=== PATIENT | female | born 1955 | race Caucasian/White ===

== ENCOUNTER 2017-02-14 19:55 | Emergency (ER) | payer SELFPAY ==
[2017-02-14 20:03] VITALS: BP 175/90; PULSE 102; TEMP 98.7; BMI 29.6
--- NOTE | 2017-02-14 20:51 | PDOC ---
History of Present Illness - General Chief Complaint: Injury Stated Complaint: LEFT FOOT INJURY Time Seen by Provider: 02/14/17 20:20 History Source: Patient Exam Limitations: No Limitations - History of Present Illness Initial Comments: 02/14/17 21:35 MY CHIEF COMPLAINT: LEFT ANKLE PAIN HISTORY OF PRESENT ILLNESS: PT. IS A 61 Y/O FEMALE IDDM HERE TODAY C/O PAIN TO MEDIAL MALLEOUS FROM 02/03/17 WHEN SHE TWISTED HER ANKLE WALKING HER DOG. PT. REPORTS ICING HER ANKLE/FOOT AND TAKING ADVIL FOR PAIN. PT. DENIES ANY LEFT FOOT OR TOE PAIN. PT. HAS SWELLING TO LEFT MEDIAL ANKLE AND DORSAL FOOT. PT DENIES ANY NUMBNESS OF FOOT OR ANKLE. Occurred: reports: other (02/03/17) Severity: Yes: moderate Lower Extremity Pain Location: left: foot, ankle (MEDIALLY ) Method of Injury: Yes: twisted Modifying Factors: improves with: None (ADVIL), immobilization Lower Ext. Injury Location - Specific Injury Location Ankle: left pain, left swelling (DORSAL ) Foot: left foot ecchymosis (2ND, 3RD TOE), left foot swelling (DORSALLY), bilateral foot pain Extremity Pain Location - Extremity Pain Location Extremity Pain Locations: left: ankle (MEDIALLY ) Past History - Past Medical History Allergies/Adverse Reactions: Allergies Allergy/AdvReac Type Severity Reaction Status Date / Time No Known Allergies Allergy Verified 02/14/17 19:59 Home Medications: Ambulatory Orders Acetaminophen [Tylenol] 325 mg PO DAILY PRN 05/16/16 Aspirin [ASA -] 81 mg PO DAILY 05/16/16 Ca/D3/Mag#11/Zinc/Oracle Erp Architect/Navid/Bor [Caltrate 600+D Plus Tablet] 1 each PO DAILY Cephalexin [Keflex] 500 mg PO BID #14 capsule 05/16/16 Codeine/Butalbital/ASA/Caffein [[id number]-[id number]-Ctrr-Cod #3 Capsule] 1 each PO DAILY 05/16/16 Ezetimibe [Zetia] 10 mg PO DAILY 05/16/16 Famotidine [Pepcid] 20 mg PO DAILY PRN 05/16/16 Fexofenadine HCl [Mya Allergy] 180 mg PO DAILY PRN 05/16/16 Insulin Aspart [Novolog] 100 unit SQ ACHS 05/16/16 Multivitamin [Poly-Vitamin] 1 each PO DAILY 05/16/16 Nebivolol [Bystolic -] 5 mg PO DAILY 05/16/16 Pramipexole Di-HCl [Pramipexole Dihydrochloride] 0.5 mg PO BID 05/16/16 Ramipril 5 mg PO DAILY 05/16/16 Diabetes: Yes - Psycho/Social/Smoking Cessation Hx Anxiety: No Suicidal Ideation: No Smoking History: Never smoked Have you smoked in the past 12 months: No Hx Alcohol Use: No Drug/Substance Use Hx: No Substance Use Type: None Review of Systems - Review of Systems Able to Perform ROS?: Yes Constitutional: No: Symptoms Reported HEENTM: No: Symptoms Reported Respiratory: No: Symptoms reported Cardiac (ROS): No: Symptoms Reported ABD/GI: No: Symptoms Reported : No: Symptoms Reported Musculoskeletal: Yes: Joint Pain (LEFT MEDIAL ANKLE ), Joint Swelling (LEFT MEDIAL ANKLE SLIGHT, DORSAL LEFT FOOT) Integumentary: Yes: Bruising (LEFT 2ND AND 3RD DORSAL TOES) Neurological: No: Symptoms reported *Physical Exam - Vital Signs Last Vital Signs Temp Pulse Resp BP Pulse Ox 98.7 F 102 H 18 175/90 99 02/14/17 19:59 02/14/17 19:59 02/14/17 19:59 02/14/17 19:59 02/14/17 19:59 - Physical Exam General Appearance: Yes: Appropriately Dressed Vascular Pulses: Doralis-Pedis (L): 4+ Extremity: positive: Normal Capillary Refill, Normal Range of Motion (LEFT FOOT , ANKLE/TOES), Tender (LEFT MEDIAL ANKLE), Swelling (MINIMAL LEFT MEDIAL ANKLE, DORSAL FOOT ) Integumentary: positive: Ecchymosis (LEFT 2ND & 3RD DORSAL TOES) Neurologic: positive: Alert, Normal Response, Responsive. negative: Respond to painful stimul, Numbness, Sensory Deficit (LEFT FOOT/ANKLE) Procedures - Consent Consent obtained: From Patient - Splinting Splint Location: Left: Ankle Pre-Made Type: aircast Medical Decision Making - Medical Decision Making 02/14/17 21:38 PT. IS A 61 Y/O FEMALE IDDM HERE TODAY C/O PAIN TO MEDIAL MALLEOUS FROM 02/03/17 WHEN SHE TWISTED HER ANKLE WALKING HER DOG. PT. REPORTS ICING HER ANKLE/FOOT AND TAKING ADVIL FOR PAIN. PT. DENIES ANY LEFT FOOT OR TOE PAIN. PT. HAS SWELLING TO LEFT MEDIAL ANKLE AND DORSAL FOOT. PT DENIES ANY NUMBNESS OF FOOT OR ANKLE. R/O FRACTURE LEFT ANKLE/FOOT PLAN: XRAY LEFT ANKLE/FOOT NEGATIVE FOR FRACTURE PER DR. GARCIA AIRCAST APPLIED TO LEFT ANKLE PT. DOES NOT WANT PAIN MEDICATION HERE. FOLLOW UP WITH ORTHO *DC/Admit/Observation/Transfer Diagnosis at time of Disposition: Left ankle sprain Qualifiers: Encounter type: initial encounter Involved ligament of ankle: unspecified ligament Qualified Code(s): S93.402A - Sprain of unspecified ligament of left ankle, initial encounter Sprain of foot, left Qualifiers: Encounter type: initial encounter Qualified Code(s): S93.602A - Unspecified sprain of left foot, initial encounter - Discharge Dispostion Disposition: HOME Condition at time of disposition: Stable - Patient Instructions Additional Instructions: FOLLOW UP WITH ORTHOPEDIST OF YOUR CHOICE SOON POSSIBLE WEAR AIRCAST DURING THE DAY, ELEVATE FOOT MUCH POSSIBLE \ TAKE ADVIL NEEDED DIRECTED BY SOUND EFFECTS TECHNICIAN PATIENT VOICED UNDERSTANDING OF DISCHARGE INSTRUCTIONS AND ALL QUESTIONS WERE ANSWERED
== END 2017-02-14 21:45 | disposition home or self-care (01) ==
LOC: JERFT 19:55
DX: S93.402A Sprain of unspecified ligament of left ankle, initial encounter (principal); X50.1XXA Overexertion from prolonged static or awkward postures, initial encounter; Y93.K1 Activity, walking an animal; Y92.89 Other specified places as the place of occurrence of the external cause; Y99.8 Other external cause status
CPT/HCPCS: 73610-TC-LT; 73630-TC-LT; 99281-25

== ENCOUNTER 2018-05-27 06:05 | Observation (INO) | payer OTHER ==
[2018-05-27 06:40] VITALS: BMI 22.6
--- NOTE | 2018-05-27 07:31 | PDOC ---
Attending Attestation - Resident Resident Name: Serene Evans - HPI HPI: 05/27/18 08:37 Pt presents to the ED complaining of two episodes of syncope without prodrome that occurred two days ago. Patient was completely asymptomatic before and after the episodes. Denies chest pain or shortness of breath, nausea or vomiting. Denies prior episodes of syncope. Denies lightheadness. - Physicial Exam PE: 05/27/18 08:41 Agree with resident exam. Patient is alert and oriented and in no acute distress. Lungs are clear. Heart has regular rate and rhythm. Abdomen is soft , non tender and non distended. Cranial nerves are grossly intact and patient has normal mood and affect. - Medical Decision Making 05/27/18 08:46 Pt presents to the Ed complaining of two episodes of syncope without prodrome. Currently asymptomatic. Patient has some risk factors for cardiac syncope. Will check labs and admit for observation for syncope.
--- NOTE | 2018-05-27 07:48 | PDOC ---
History of Present Illness - General Chief Complaint: Syncope/Near Syncope Stated Complaint: SYNCOPE Time Seen by Provider: 05/27/18 07:20 - History of Present Illness Initial Comments: 05/27/18 08:47 Tatiana Moore is a 62yo woman with a PMH of IDDM (no complications) with an insulin pump, HTN, migraines, a-flutter who presents with two episodes of syncope on Monday. She reports that she was feeling well all day. She bent down several times to feed her dogs, went to the bathroom to check her blood glucose , and several minutes later woke up on the floor. She walked back into her kitchen and went to sit down on a chair, and she woke up on the floor a second time. Ms Moore denies any dizziness, chest pain, SOB, nausea/vomiting, headache, or urinary symptoms prior to her fainting episodes. She checked her antihypertensives out of concern that she had taken an extra pill, and she reports that all the pills are accounted for. She did not have any focal neurological symptoms before or following the episodes of syncope. Yesterday, Ms Moore spent the day laying down and relaxing, but she did not have recurrence of the syncope. She continues to feel well today but thought that she should present to the ED for evaluation. Past History - Past Medical History Allergies/Adverse Reactions: Allergies Allergy/AdvReac Type Severity Reaction Status Date / Time No Known Allergies Allergy Verified 05/27/18 06:43 Home Medications: Ambulatory Orders Acetaminophen [Tylenol] 325 mg PO DAILY PRN 05/16/16 Aspirin [ASA -] 81 mg PO DAILY 05/16/16 Anirudh/D3/Mag11/Zinc/Special Education Aide/Navid/Bor [Caltrate 600+D Plus Tablet] 1 each PO DAILY Ezetimibe [Zetia] 10 mg PO DAILY 05/16/16 Famotidine [Pepcid] 20 mg PO DAILY PRN 05/16/16 Fexofenadine HCl [Mya Allergy] 180 mg PO DAILY PRN 05/16/16 Multivitamin [Poly-Vitamin] 1 each PO DAILY 05/16/16 Nebivolol [Bystolic -] 5 mg PO DAILY 05/16/16 Pramipexole Di-HCl [Pramipexole Dihydrochloride] 0.5 mg PO BID 05/16/16 Ramipril 5 mg PO DAILY 05/16/16 Hydrochlorothiazide [Hctz -] 12.5 mg PO DAILY 05/27/18 Insulin Lispro [Humalog] 100 unit SQ ASDIR 05/27/18 Diabetes: Yes - Suicide/Smoking/Psychosocial Hx Smoking History: Never smoked Have you smoked in the past 12 months: No Information on smoking cessation initiated: No Hx Alcohol Use: No Drug/Substance Use Hx: No Substance Use Type: None Review of Systems - Review of Systems Comments:: General: No fevers, no chills, no weight or appetite change, no malaise HEENT: No changes in vision, no changes in hearing, no congestion, no sore throat CV: No chest pain, no palpitations, no LE edema Pulm: No SOB, no cough, no wheezing GI: No nausea or vomiting, no change in bowel habits, no melena : No frequency, no urgency, no dysuria Musc: No back pain, no joint swelling, no recent injury Skin: No rash, no lesions, no erythema Endo: No excessive thirst, no heat/cold intolerance Heme: No unusual bruising or bleeding, no swollen glands Neuro: No syncope, no numbness/tingling, no focal weakness Vasc: No claudication Psych: No recent change in mood, no SI or HI *Physical Exam - Vital Signs Last Vital Signs Temp Pulse Resp BP Pulse Ox 98.2 F 94 H 18 149/85 96 05/27/18 06:10 05/27/18 06:10 05/27/18 06:10 05/27/18 06:10 05/27/18 06:10 - Physical Exam Comments: General: Comfortable, no acute distress HEENT: PERRL, EOMI, MMM, voice normal, normal neck ROM, no LAD Cards: RRR, no murmur appreciated Pulm: Comfortable on room air, clear to auscultation bilaterally Abd: Soft, nontender, nondistended : No CVA tenderness Ext: Atraumatic. No LE edema. ROM intact. Strength 5/5 and equal bilaterally Vasc: Extremities WWP. Palpable radial and pedal pulses bilaterally Skin: Normal color, no rashes or lesions Neuro: A&Ox3, CN grossly intact, normal speech, motor/sensory grossly intact and symmetric Psych: Mood appropriate to situation ED Treatment Course - LABORATORY CBC & Chemistry Diagram: 05/27/18 08:12 05/27/18 08:12 - RADIOLOGY Radiology Studies Ordered: Category Date Time Status CHEST - PA [RAD] Stat Radiology 05/27/18 07:47 Ordered Medical Decision Making - Medical Decision Making 05/27/18 08:57 Tatiana Moore is a 62yo woman with a PMH of DM1, HTN, migraines, and a- flutter who presents with two episodes of syncope without any prodrome - CBC, CMP, mag, phos without concerning abnormalities - Trop negative - EKG - NSR, no abnormalities - CXR without any acute pathology Given lack of ongoing abnormalities and history of a-flutter, syncope may have been due to an arrhythmia. Plan for tele obs admission for cardiac monitoring Admission discussed with Ms Moore; she understands and agrees with this plan. Microblog sent to hospitalist team for admission. 05/27/18 10:01 - Repeat text sent to hospitalist team for admission to telemetry observation Seen and discussed with Dr Liang. Serene Evans PGY1 *DC/Admit/Observation/Transfer Diagnosis at time of Disposition: Syncope - Discharge Dispostion Condition at time of disposition: Fair Decision to Admit order: Yes - Referrals Referrals: Chun Mckee [Primary Care Provider] - - Patient Instructions - Post Discharge Activity
[2018-05-27 08:18] LABS: BASO % 0.5 % (0-2.0); EOS % 0.2 % (0-4.5); HEMATOCRIT 44.8 % (32.4-45.2); HEMOGLOBIN 15.1 GM/dL (10.7-15.3); LYMPH % 13.2 % (8-40); MCH 30.7 pg (25.7-33.7); MCHC 33.6 g/dl (32.0-36.0); MEAN CELL VOLUME 91.5 fl (80-96); MEAN PLT VOLUME 7.8 fl (7.5-11.1); MONO % 4.5 % (3.8-10.2); NEUT % 81.6 % (42.8-82.8); PLATELET COUNT 309 K/MM3 (134-434); RDW 13.7 % (11.6-15.6)
[2018-05-27 08:46] LABS: ALBUMIN 4.1 g/dl (3.4-5.0); ALK PHOS 81 U/L (45-117); ANION GAP 9 MMOL/L (8-16); BILIRUBIN,TOTAL 1.4 mg/dL (0.2-1); BLOOD UREA NITROGEN 25 mg/dL (7-18); CALCIUM 9.1 mg/dL (8.5-10.1); CHLORIDE 105 mmol/L (98-107); CO2 28 mmol/L (21-32); CREATININE 0.9 mg/dL (0.55-1.3); GLUCOSE,RANDOM 155 mg/dL (74-106); MAGNESIUM 2.1 mg/dL (1.8-2.4); PHOSPHOROUS 2.1 mg/dL (2.5-4.9); POTASSIUM 3.5 mmol/L (3.5-5.1); SGOT/AST 14 U/L (15-37); SGPT/ALT 14 U/L (13-61); SODIUM 142 mmol/L (136-145); TOT PROT 7.9 g/dl (6.4-8.2)
[2018-05-27] MEDS ORDERED: ACETAMINOPHEN 325 MG TABLET (FP) PO PRN (11:49)
[2018-05-27] MEDS ORDERED: NAPH,MB-DB/K PH,MBDB POWDER PACKET PO ONE (11:51)
--- NOTE | 2018-05-27 11:52 | HP ---
CHIEF COMPLAINT: "I passed out" PCP: HISTORY OF PRESENT ILLNESS: 62 yo F with PMHx of A-Flutter, DM I , HTN and HLD presents with history of syncope. She states that two days prior she was cleaning up after her dog at night and proceeded to go to restroom to clean her hands. She then checked her BS( 130's) and subsequently lost consciousness and fell to floor. She then woke up and immediately questioned what had happened. She states that she did not hit her head or sustain any other injuries. She knew exactly where she was and only on the floor for a few minutes as she checked her wrist watch. She then went to kitchen and leaned over sink when she lost consciousness again for a moment. She then proceeded to go to bed. She did not become confused on either occasion. No loss of bowel or bladder function. These were both unwitnessed events. She denies any chest pain, light headiness or palpitations just prior to LOC. This has never happened to her before. She has seen a injury/safety hazard assessment Dr. Gil ([facility]) in the past for A-flutter but has not seen him in over a year ( currently in [place]). Denies CP,LOYA, SOB, palpitations, abdominal pain, recent illness, dysuria, fever,chills, nausea or vomiting. Her diabetes is managed with insulin pump and sugars are constantly monitored and she states that her sugars have been WNL. ER course was notable for: (1)EKG-NSR w/o st or t wave abnormalities. (2)CMP shows slight pre-renal azotemia and Hypophosphetemia. (3)Troponin I (-) x1 Recent Travel: Denies PAST MEDICAL HISTORY:A-Flutter, DM I , HTN and HLD PAST SURGICAL HISTORY: Bilateral oopherectomy and hysterectomy. Social History: Smoking:never Alcohol:social (1-2 drinks /yr) Drugs: denies. 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 Family History: Mother and Father of old age in their 90's Allergies No Known Allergies Allergy (Verified 05/27/18 06:43) HOME MEDICATIONS: Home Medications Medication Instructions Recorded Acetaminophen [Tylenol] 325 mg PO DAILY PRN 05/16/16 Aspirin [ASA -] 81 mg PO DAILY 05/16/16 Anirudh/D3/Mag11/Zinc/Electrical Power Station Technician/Navid/Bor 1 each PO DAILY 05/16/16 [Caltrate 600+D Plus Tablet] Ezetimibe [Zetia] 10 mg PO DAILY 05/16/16 Famotidine [Pepcid] 20 mg PO DAILY PRN 05/16/16 Fexofenadine HCl [Mya Allergy] 180 mg PO DAILY PRN 05/16/16 Multivitamin [Poly-Vitamin] 1 each PO DAILY 05/16/16 Nebivolol [Bystolic -] 5 mg PO DAILY 05/16/16 Pramipexole Di-HCl [Pramipexole 0.5 mg PO BID 05/16/16 Dihydrochloride] Ramipril 5 mg PO DAILY 05/16/16 Hydrochlorothiazide [Hctz -] 12.5 mg PO DAILY 05/27/18 Insulin Lispro [Humalog] 100 unit SQ ASDIR 05/27/18 REVIEW OF SYSTEMS CONSTITUTIONAL: Absent: fever, chills, diaphoresis, generalized weakness, malaise, loss of appetite, weight change HEENT: Absent: rhinorrhea, nasal congestion, throat pain, throat swelling, difficulty swallowing, mouth swelling, ear pain, eye pain, visual changes CARDIOVASCULAR: syncope, Absent: chest pain, palpitations, irregular heart rate, lightheadedness, peripheral edema RESPIRATORY: Absent: cough, shortness of breath, dyspnea with exertion, orthopnea, wheezing, stridor, hemoptysis GASTROINTESTINAL: Absent: abdominal pain, abdominal distension, nausea, vomiting, diarrhea, constipation, melena, hematochezia GENITOURINARY: Absent: dysuria, frequency, urgency, hesitancy, hematuria, flank pain, genital pain MUSCULOSKELETAL: Absent: myalgia, arthralgia, joint swelling, back pain, neck pain SKIN: Absent: rash, itching, pallor HEMATOLOGIC/IMMUNOLOGIC: Absent: easy bleeding, easy bruising, lymphadenopathy, frequent infections ENDOCRINE: Absent: unexplained weight gain, unexplained weight loss, heat intolerance, cold intolerance NEUROLOGIC: Absent: headache, focal weakness or paresthesias, dizziness, unsteady gait, seizure, mental status changes, bladder or bowel incontinence PSYCHIATRIC: Absent: anxiety, depression, suicidal or homicidal ideation, hallucinations. PHYSICAL EXAMINATION Vital Signs - 24 hr 05/27/18 05/27/18 06:10 07:30 Temperature 98.2 F Pulse Rate 94 H Respiratory 18 Rate Blood Pressure 149/85 O2 Sat by Pulse 96 97 Oximetry (%) GENERAL: AAOx3, NAD HEAD:NCAT EYES: PERRLA,EOMI, sclera anicteric, conjunctiva clear. No lid lag. EARS, NOSE, THROAT: Moist mucous membranes. NECK:Supple without lymphadenopathy, JVD, or buits. LUNGS: CTAB. No wheezes, and no crackles. No accessory muscle use. HEART: RRR, normal S1 and S2 without murmur, rub or gallop. ABDOMEN: Soft, NTND,NABS, no guarding, no rebound, no masses. No hepatomegaly or splenomegaly. MUSCULOSKELETAL:No CVA tenderness. LOWER EXTREMITIES: 2+ pulses, warm, well-perfused. No calf tenderness. trace peripheral edema. NEUROLOGICAL: Cranial nerves II-XII intact. Normal speech. gait not observed. PSYCHIATRIC: Cooperative. Good eye contact. Appropriate mood and affect. SKIN: Warm, dry, normal turgor, no rashes or lesions noted. Laboratory Results - last 24 hr 05/27/18 05/27/18 08:12 08:12 WBC 8.0 RBC 4.90 Hgb 15.1 Hct 44.8 MCV 91.5 MCH 30.7 MCHC 33.6 RDW 13.7 Plt Count 309 MPV 7.8 Absolute Neuts (auto) 6.5 Neutrophils % 81.6 Lymphocytes % 13.2 D Monocytes % 4.5 Eosinophils % 0.2 D Basophils % 0.5 Nucleated RBC % 0 Sodium 142 Potassium 3.5 Chloride 105 Carbon Dioxide 28 Anion Gap 9 BUN 25 H Creatinine 0.9 Creat Clearance w eGFR > 60 Random Glucose 155 H Calcium 9.1 Phosphorus 2.1 L Magnesium 2.1 Total Bilirubin 1.4 H AST 14 L ALT 14 Alkaline Phosphatase 81 Troponin I < 0.02 Total Protein 7.9 Albumin 4.1 ASSESSMENT/PLAN: 62 yo F with PMHx of A-Flutter, DM I , HTN and HLD presents with history of syncope placed on observation to telemetry. Problem List - Problem (1) Syncope Assessment/Plan: placed on observation to telemetry. * Orthostatic vital signs. * Echo pending * repeat EKG * Cardiology consult. * trend trops. (2) DM type 1 (diabetes mellitus, type 1) Assessment/Plan: she is managed with insulin pump. * ADA diet * BGM BIDAC (3) HTN (hypertension) Assessment/Plan: BP is well controlled * Continue with HCTZ 12.5mg PO * Contineu Bystolic 5mg PO daily. (4) HLD (hyperlipidemia) Assessment/Plan: Continue Zetia. (5) Hypophosphatemia Assessment/Plan: Will replace with NaPhos packet. . * repeat Phos in AM (6) DVT prophylaxis Assessment/Plan: SCD's both legs and Visit type - Emergency Visit Emergency Visit: Yes ED Registration Date: 05/27/18 Care time: The patient presented to the Emergency Department on the above date and was hospitalized for further evaluation of their emergent condition. - New Patient This patient is new to me today: Yes Date on this admission: 05/27/18 - Critical Care Critical Care patient: No
[2018-05-27] MEDS: SODIUM CHLORIDE 1,000 ML IV SCH (13:52)
--- NOTE | 2018-05-27 13:55 | EKG ---
Test Reason : Blood Pressure : / mmHG Vent. Rate : 080 BPM Atrial Rate : 080 BPM P-R Int : 134 ms QRS Dur : 076 ms QT Int : 372 ms P-R-T Axes : 074 056 041 degrees QTc Int : 429 ms NORMAL SINUS RHYTHM NORMAL ECG WHEN COMPARED WITH ECG OF 26-DEC-2004 13:35, VENT. RATE HAS DECREASED BY 44 BPM Confirmed by MD Jean-Claude, Jatinder ([id number]) on 05/27/2018 1:55:12 PM Referred By: Confirmed By:Jatinder Bermeo MD
--- NOTE | 2018-05-27 15:22 | PN ---
Teaching Attending Note Name of Resident: Elia Toney ATTENDING PHYSICIAN STATEMENT I saw and evaluated the patient. I reviewed the resident's note and discussed the case with the resident. I agree with the resident's findings and plan as documented. SUBJECTIVE: Patient is a 62 yo Female with PMHx of A-Flutter, T1DM , HTN and HLD presents with history of syncope. This is the 1st time happens to her. OBJECTIVE: Vital Signs Temperature 98.2 F 05/27/18 06:10 Pulse Rate 94 H 05/27/18 06:10 Respiratory Rate 18 05/27/18 06:10 Blood Pressure 149/85 05/27/18 06:10 O2 Sat by Pulse Oximetry (%) 97 05/27/18 07:30 GENERAL: AAOx3, NAD HEAD:NCAT,EYES: PERRLA,EOMI, sclera anicteric, conjunctiva clear. EARS, NOSE, THROAT: Moist mucous membranes. NECK:Supple without lymphadenopathy, no JVD, or buits. LUNGS: CTAB. No wheezes, and no crackles. No accessory muscle use. HEART: RRR, normal S1 and S2 without murmur, rub or gallop. ABDOMEN: Soft, NTND,NABS, no guarding, no rebound, no masses. No hepatomegaly or splenomegaly. EXTREMITIES: 2+ pulses, warm, well-perfused. No calf tenderness. trace peripheral edema. NEUROLOGICAL: Cranial nerves II-XII intact. Normal speech. gait not observed. PSYCHIATRIC: Cooperative. Good eye contact. Appropriate mood and affect. SKIN: Warm, dry, normal turgor, no rashes or lesions noted. CBCD WBC 8.0 K/mm3 (4.0-10.0) 05/27/18 08:12 RBC 4.90 M/mm3 (3.60-5.2) 05/27/18 08:12 Hgb 15.1 GM/dL (10.7-15.3) 05/27/18 08:12 Hct 44.8 % (32.4-45.2) 05/27/18 08:12 MCV 91.5 fl (80-96) 05/27/18 08:12 MCHC 33.6 g/dl (32.0-36.0) 05/27/18 08:12 RDW 13.7 % (11.6-15.6) 05/27/18 08:12 Plt Count 309 K/MM3 (134-434) 05/27/18 08:12 MPV 7.8 fl (7.5-11.1) 05/27/18 08:12 CMP Sodium 142 mmol/L (136-145) 05/27/18 08:12 Potassium 3.5 mmol/L (3.5-5.1) 05/27/18 08:12 Chloride 105 mmol/L (98-107) 05/27/18 08:12 Carbon Dioxide 28 mmol/L (21-32) 05/27/18 08:12 Anion Gap 9 MMOL/L (8-16) 05/27/18 08:12 BUN 25 mg/dL (7-18) H 05/27/18 08:12 Creatinine 0.9 mg/dL (0.55-1.3) 05/27/18 08:12 Creat Clearance w eGFR > 60 (>60) 05/27/18 08:12 Random Glucose 155 mg/dL (74-106) H 05/27/18 08:12 Calcium 9.1 mg/dL (8.5-10.1) 05/27/18 08:12 Total Bilirubin 1.4 mg/dL (0.2-1) H 05/27/18 08:12 AST 14 U/L (15-37) L 05/27/18 08:12 ALT 14 U/L (13-61) 05/27/18 08:12 Alkaline Phosphatase 81 U/L (45-117) 05/27/18 08:12 Total Protein 7.9 g/dl (6.4-8.2) 05/27/18 08:12 Albumin 4.1 g/dl (3.4-5.0) 05/27/18 08:12 CARDIAC ENZYMES Troponin I < 0.02 ng/ml (0.00-0.05) 05/27/18 08:12 Home Medications Medication Instructions Recorded Acetaminophen [Tylenol] 325 mg PO DAILY PRN 05/16/16 Aspirin [ASA -] 81 mg PO DAILY 05/16/16 Anirudh/D3/Mag11/Zinc/Employment Coach/Navid/Bor 1 each PO DAILY 05/16/16 [Caltrate 600+D Plus Tablet] Ezetimibe [Zetia] 10 mg PO DAILY 05/16/16 Famotidine [Pepcid] 20 mg PO DAILY PRN 05/16/16 Fexofenadine HCl [Mya Allergy] 180 mg PO DAILY PRN 05/16/16 Multivitamin [Poly-Vitamin] 1 each PO DAILY 05/16/16 Nebivolol [Bystolic -] 5 mg PO DAILY 05/16/16 Pramipexole Di-HCl [Pramipexole 0.5 mg PO BID 05/16/16 Dihydrochloride] Ramipril 5 mg PO DAILY 05/16/16 Hydrochlorothiazide [Hctz -] 12.5 mg PO DAILY 05/27/18 Insulin Lispro [Humalog] 100 unit SQ ASDIR 05/27/18 Current Medications Generic Name Dose Route Start Last Admin Trade Name Freq PRN Reason Stop Dose Admin Acetaminophen 325 mg 05/27/18 11:49 Tylenol - PO DAILY PRN PAIN Aspirin 81 mg 05/28/18 10:00 Asa - PO DAILY DANIELLE Ezetimibe 10 mg 05/28/18 10:00 Zetia - PO DAILY DANIELLE Hydrochlorothiazide 12.5 mg 05/28/18 10:00 Hctz - PO DAILY DANIELLE Sodium Chloride 1,000 mls @ 75 mls/hr 05/27/18 13:45 05/27/18 13:52 Normal Saline - IV Not Given ASDIR DANIELLE Loratadine 10 mg 05/28/18 10:00 Claritin - PO DAILY PRN ALLERGIES Nebivolol 5 mg 05/28/18 10:00 Bystolic - PO DAILY DANIELLE Pramipexole Dihydrochloride 0.5 mg 05/27/18 22:00 Mirapex - PO BID DANIELLE Ranitidine HCl 150 mg 05/28/18 10:00 Zantac - PO DAILY PRN HEARTBURN ASSESSMENT AND PLAN: 62 yo F with PMHx of A-Flutter, DM I , HTN and HLD presents with history of syncope placed on observation to telemetry. # Syncope: observation to telemetry. orthostatic vital signs. Echo pending, repeat EKG, cardiology consult. trend trops. Cardio consult dr. Gil. continue # DM type 1: on insulin pump. ADA diet, BGM BIDAC # HTN : BP is well controlled on HCTZ 12.5mg PO, Bystolic 5mg PO daily. # HLD on Zetia. # Hypophosphatemia will replace with NaPhos packet. repeat Phos in AM DVT prophylaxis: SCD's both legs
[2018-05-27] MEDS: PRAMIPEXOLE DIHYDROCHLORIDE 0.5 MG TABLET PO SCH (23:42)
[2018-05-28 07:20] VITALS: TEMP 95
[2018-05-28 07:25] LABS: BASO % 0.8 % (0-2.0); EOS % 2.8 % (0-4.5); HEMATOCRIT 41.5 % (32.4-45.2); HEMOGLOBIN 13.5 GM/dL (10.7-15.3); MCHC 32.4 g/dl (32.0-36.0); MEAN CELL VOLUME 92.4 fl (80-96); MEAN PLT VOLUME 8.1 fl (7.5-11.1); MONO % 9.6 % (3.8-10.2); NEUT % 57.8 % (42.8-82.8); PLATELET COUNT 237 K/MM3 (134-434); RBC 4.49 M/mm3 (3.60-5.2); RDW 13.8 % (11.6-15.6); WHITE BLOOD COUNT 5.3 K/mm3 (4.0-10.0)
[2018-05-28 07:59] LABS: ALBUMIN 3.5 g/dl (3.4-5.0); ALK PHOS 72 U/L (45-117); ANION GAP 8 MMOL/L (8-16); BILIRUBIN,TOTAL 1.3 mg/dL (0.2-1); BLOOD UREA NITROGEN 24 mg/dL (7-18); CALCIUM 9.1 mg/dL (8.5-10.1); CHLORIDE 104 mmol/L (98-107); CO2 29 mmol/L (21-32); CREATININE 0.7 mg/dL (0.55-1.3); GLUCOSE,RANDOM 196 mg/dL (74-106); MAGNESIUM 2.5 mg/dL (1.8-2.4); PHOSPHOROUS 3.1 mg/dL (2.5-4.9); POTASSIUM 3.7 mmol/L (3.5-5.1); SGOT/AST 14 U/L (15-37); SGPT/ALT 13 U/L (13-61); SODIUM 140 mmol/L (136-145)
[2018-05-28] MEDS ORDERED: EZETIMIBE 10 MG TABLET (FP) PO SCH (10:00)
[2018-05-28] MEDS ORDERED: HYDROCHLOROTHIAZIDE 12.5 MG CAPSULE (FP) PO SCH (10:00)
[2018-05-28] MEDS ORDERED: NEBIVOLOL 5 MG TABLET (FP) PO SCH (10:00)
[2018-05-28] MEDS ORDERED: RANITIDINE HCL 150 MG TABLET (FP) PO PRN (10:00)
[2018-05-28] MEDS ORDERED: LORATADINE 10 MG TABLET PO PRN (10:00)
[2018-05-28] MEDS: SODIUM CHLORIDE 1,000 ML IV SCH (10:00)
[2018-05-28] MEDS ORDERED: ASPIRIN 81 MG CHEWABLE TABLETS PO SCH (10:00)
[2018-05-28] MEDS: PRAMIPEXOLE DIHYDROCHLORIDE 0.5 MG TABLET PO SCH (10:06)
--- NOTE | 2018-05-28 10:09 | ECHO ---
Name: HAYES MIXETTA Exam:Adult Echocardiogram Study Date: 05/28/2018 09:22 AM Age: 62 yrs Reason For Study: SYNCOPE, LV FUNCTION Height: 62 in Weight: 124 lb BSA: 1.6 m2 MMode/2D Measurements & Calculations IVSd: 0.81 cm Ao root diam: 2.2 cm LVIDd: 2.4 cm ACS: 1.5 cm LVIDs: 1.5 cm LVPWd: 1.3 cm EDV(Teich): 20.6 ml LVOT diam: 1.6 cm ESV(Teich): 6.4 ml Doppler Measurements & Calculations Med Peak E' Jose: 7.0 cm/sec Lat Peak E' Jose: 9.1 cm/sec Procedure A complete two-dimensional transthoracic echocardiogram was performed (2D, M-mode, Doppler and color flow Doppler). Technically limites study. Left Ventricle The left ventricle is normal in size. Left ventricular systolic function is normal. Ejection Fraction = 60- 65%. No regional wall motion abnormalities noted. Right Ventricle The right ventricle is normal size. The right ventricular systolic function is normal. RV systolic TD I is 11 cm/s. Atria The left atrial size is normal. Right atrial size is normal. Mitral Valve There is mild mitral annular calcification. There is trace to mild mitral regurgitation. Tricuspid Valve The tricuspid valve is normal in structure and function. No tricuspid regurgitation. Aortic Valve There is mild aortic sclerosis.;. No aortic regurgitation is present. Pulmonic Valve The pulmonic valve is not well visualized. Great Vessels The aortic root is normal size. Pericardium/Pleura There is no pericardial effusion. Interpretation Summary The left ventricle is normal in size. Left ventricular systolic function is normal. No regional wall motion abnormalities noted. Ejection Fraction = 60-65%. The right ventricular systolic function is normal. The left atrial size is normal. Right atrial size is normal. There is mild mitral annular calcification. There is trace to mild mitral regurgitation. There is mild aortic sclerosis. There is no pericardial effusion. Previous study is not available for comparison Fernando Daugherty MD 05/28/2018 10:08 AM
--- NOTE | 2018-05-28 10:15 | CON.CARD ---
Consult Consult Specialty:: cardio - History of Present Illness Chief Complaint: passed out History of Present Illness: 62 F here for syncope 05/25 around 10 am was feeling fine, USOH, went to bathroom to check FSG which was normal (130). walked out of bathroom and awoke on floor in hallway outside. no prodrome including no palp, flushing, GI sx's, dizzy/LH, cp, sob. no neuro sx's. looked at watch and approx 2 min or so had passed. got off floor, walked to kitchen--FELT FINE WHILE WALKING INCL NO DIZZINESS. sat at kitchen table, and fell to floor. felt "like someone pushed her off the chair" though can't be certain if felt her body falling or not--SHE IS CERTAIN SHE RECALLS THE IMPACT OF HITTING THE FLOOR AND DOSE NOT THINK THERE WAS LOC THIS TIME (first time no recall of body falling or impact with floor). crawled a short distance and then got up--felt fine walking to bed. no dizziness or other sx's. felt fine the next day all day as well. then 05/27 came to ER to be evaluated, despite no further sx's. no confusion after events, no sz stigmata. didn't skip meals yest--ate usual breakfast but not great with hydration per routine intake. 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 she has no h/o cp or sob including very active and exerts at times, climbs stairs. longstanding DM1 since childhood. recent onset HTN. uncertain of mode of dx of atrial arrythmia and whether or not was flutter/fib-- confident dr braswell did not rx AC. was having palpitations then--never again since. PMH: atrial arrhythmia HTN HPL DM - Alcohol/Substance Use Hx Alcohol Use: No - Smoking History Smoking history: Never smoked Have you smoked in the past 12 months: No Home Medications - Allergies Allergies/Adverse Reactions: Allergies Allergy/AdvReac Type Severity Reaction Status Date / Time No Known Allergies Allergy Verified 05/27/18 06:43 - Home Medications Home Medications: Ambulatory Orders Acetaminophen [Tylenol] 325 mg PO DAILY PRN 05/16/16 Aspirin [ASA -] 81 mg PO DAILY 05/16/16 Ezetimibe [Zetia] 10 mg PO DAILY 05/16/16 Fexofenadine HCl [Mya Allergy] 180 mg PO DAILY PRN 05/16/16 Nebivolol [Bystolic -] 5 mg PO DAILY 05/16/16 Pramipexole Di-HCl [Pramipexole Dihydrochloride] 0.5 mg PO BID 05/16/16 Ramipril 5 mg PO DAILY 05/16/16 Hydrochlorothiazide [Hctz -] 12.5 mg PO DAILY 05/27/18 Insulin Lispro [Humalog] 100 unit SQ ASDIR 05/27/18 Family Disease History - Family Disease History Family History: Denies (no known cmp) Review of Systems - Review of Systems Constitutional: denies: Chills, Fever Eyes: denies: Eye Pain HENT: denies: Nasal Congestion Neck: denies: Stiffness Cardiovascular: denies: Palpitations Respiratory: denies: Orthopnea, PND Gastrointestinal: denies: Diarrhea, Rectal Bleeding Genitourinary: denies: Burning, Hematuria Musculoskeletal: denies: Muscle Pain Integumentary: denies: Rash Neurological: reports: Syncope. denies: Numbness, Seizure Endocrine: denies: Excessive Sweating Hematology/Lymphatic: denies: Excessive Bleeding Vital Signs: Vital Signs Temperature 95 F L 05/28/18 07:19 Pulse Rate 76 05/28/18 07:19 Respiratory Rate 18 05/28/18 07:19 Blood Pressure 111/67 05/28/18 07:19 O2 Sat by Pulse Oximetry (%) 95 05/28/18 07:19 Constitutional: Yes: Well Nourished, No Distress Eyes: No: Sclera Icterus HENT: No: Nasal Congestion Neck: No: Decreased ROM Respiratory: Yes: CTA Bilaterally. No: Accessory Muscle Use, Rales, Wheezes Gastrointestinal: Yes: Normal Bowel Sounds. No: Distention, Hepatomegaly, Palpable Mass, Tenderness Cardiovascular: Yes: Regular Rate and Rhythm JVD: No Carotid Bruit: No PMI: Non-Displaced Heart Sounds: Yes: S1, S2. No: Gallop Murmur: No: Systolic Murmur, Diastolic Murmur Musculoskeletal: Yes: Other (No kyphosis) Extremities: No: Cold, Cyanosis Edema: No Peripheral Pulses: 2+ Left Carotid, 2+ Right Carotid, 2+ Left Doralis Pedis, 2+ Right Dorsalis Pedis Integumentary: No: Jaundice Neurological: Yes: Alert, Oriented (x3) Psychiatric: No: Agitated - Other Data Labs, Other Data: CBC, BMP 05/28/18 07:00 05/28/18 07:00 Laboratory Tests 05/27/18 05/28/18 05/28/18 08:12 07:00 07:00 WBC 5.3 Hgb 13.5 Plt Count 237 D Sodium 140 Potassium 3.7 Carbon Dioxide 29 BUN 24 H Creatinine 0.7 AST 14 L ALT 13 Troponin I < 0.02 Assessment/Plan ECG: NSR, normal ECG including normal intervals CXR: clear lungs/pleura tele (in ER): NSR, no events syncope: -reliable historian--no prodrome. one episode occurred while standing, one while seated. -no apparent trigger for vasovagal event noted, and history not suggestive, including with no post-event malaise/weakness/GI sx's -? DM autonomic neuropathy with orthostatic hypotension -r/o bradyarrhythmia (though low risk, given not elderly and normal intervals on ecg) -r/o DM cardiomyopathy with low EF predisposing to VT risk -do not think this was related to atrial arrhythmia given lack of her prior sx' s (= palpitations) -doubt acute ischemia given very atypical symptomatology for this. ecg normal, trop neg x 1, repeat ordered -check orthostatics -echo for LVEF -tele has been unrevealing for > 24 hrs now -if echo and trop unremarkable, pt is ok for d/c from CV p.o.v. and will have outpt 30 day monitor and routine outpt stress test to confirm no ischemic heart dz present (d/w'd dr braswell as well, who she will f/u with) atrial flutter: -in sinus here -ECG normal -on bystolic--continue -CHADS VASC = 2, on aspirin only at home. will continue same plan but pt advised she should f/u with her cardio (dr braswell) as outpt HTN: -bp controlled -home meds DM: -per hospitalist HPL: -home meds
--- NOTE | 2018-05-28 14:04 | PN ---
Teaching Attending Note Name of Resident: Eva Melendez ATTENDING PHYSICIAN STATEMENT I saw and evaluated the patient. I reviewed the resident's note and discussed the case with the resident. I agree with the resident's findings and plan as documented. SUBJECTIVE: Patient is comfortable with no acute distress. OBJECTIVE: Vital Signs Temperature 95 F L 05/28/18 07:19 Pulse Rate 76 05/28/18 07:19 Respiratory Rate 18 05/28/18 07:19 Blood Pressure 111/67 05/28/18 07:19 O2 Sat by Pulse Oximetry (%) 95 05/28/18 07:19 GENERAL: AAOx3, NAD HEAD:NCAT,EYES: PERRLA,EOMI, sclera anicteric, conjunctiva clear. EARS, NOSE, THROAT: Moist mucous membranes. NECK:Supple without lymphadenopathy, no JVD, or buits. LUNGS: CTAB. No wheezes, and no crackles. No accessory muscle use. HEART: RRR, normal S1 and S2 without murmur, rub or gallop. ABDOMEN: Soft, NTND,NABS, no guarding, no rebound, no masses. No hepatomegaly or splenomegaly. EXTREMITIES: 2+ pulses, warm, well-perfused. No calf tenderness. trace peripheral edema. NEUROLOGICAL: Cranial nerves II-XII intact. Normal speech. gait not observed. PSYCHIATRIC: Cooperative. Good eye contact. Appropriate mood and affect. SKIN: Warm, dry, normal turgor, no rashes or lesions noted. CBCD WBC 5.3 K/mm3 (4.0-10.0) 05/28/18 07:00 RBC 4.49 M/mm3 (3.60-5.2) 05/28/18 07:00 Hgb 13.5 GM/dL (10.7-15.3) 05/28/18 07:00 Hct 41.5 % (32.4-45.2) 05/28/18 07:00 MCV 92.4 fl (80-96) 05/28/18 07:00 MCHC 32.4 g/dl (32.0-36.0) 05/28/18 07:00 RDW 13.8 % (11.6-15.6) 05/28/18 07:00 Plt Count 237 K/MM3 (134-434) D 05/28/18 07:00 MPV 8.1 fl (7.5-11.1) 05/28/18 07:00 CMP Sodium 140 mmol/L (136-145) 05/28/18 07:00 Potassium 3.7 mmol/L (3.5-5.1) 05/28/18 07:00 Chloride 104 mmol/L (98-107) 05/28/18 07:00 Carbon Dioxide 29 mmol/L (21-32) 05/28/18 07:00 Anion Gap 8 MMOL/L (8-16) 05/28/18 07:00 BUN 24 mg/dL (7-18) H 05/28/18 07:00 Creatinine 0.7 mg/dL (0.55-1.3) 05/28/18 07:00 Creat Clearance w eGFR > 60 (>60) 05/28/18 07:00 Random Glucose 196 mg/dL (74-106) H 05/28/18 07:00 Calcium 9.1 mg/dL (8.5-10.1) 05/28/18 07:00 Total Bilirubin 1.3 mg/dL (0.2-1) H 05/28/18 07:00 AST 14 U/L (15-37) L 05/28/18 07:00 ALT 13 U/L (13-61) 05/28/18 07:00 Alkaline Phosphatase 72 U/L (45-117) 05/28/18 07:00 Total Protein 7.0 g/dl (6.4-8.2) 05/28/18 07:00 Albumin 3.5 g/dl (3.4-5.0) 05/28/18 07:00 CARDIAC ENZYMES Troponin I < 0.02 ng/ml (0.00-0.05) 05/28/18 12:55 Current Medications Generic Name Dose Route Start Last Admin Trade Name Freq PRN Reason Stop Dose Admin Acetaminophen 325 mg 05/27/18 11:49 05/28/18 10:07 Tylenol - PO 325 mg DAILY PRN Administration PAIN Aspirin 81 mg 05/28/18 10:00 05/28/18 10:06 Asa - PO 81 mg DAILY DANIELLE Administration Ezetimibe 10 mg 05/28/18 10:00 05/28/18 10:06 Zetia - PO 10 mg DAILY DANIELLE Administration Hydrochlorothiazide 12.5 mg 05/28/18 10:00 05/28/18 10:06 Hctz - PO 12.5 mg DAILY DANIELLE Administration Sodium Chloride 1,000 mls @ 75 mls/hr 05/27/18 13:45 05/27/18 13:52 Normal Saline - IV Not Given ASDIR DANIELLE Loratadine 10 mg 05/28/18 10:00 Claritin - PO DAILY PRN ALLERGIES Nebivolol 5 mg 05/28/18 10:00 05/28/18 10:06 Bystolic - PO 5 mg DAILY DANIELLE Administration Pramipexole Dihydrochloride 0.5 mg 05/27/18 22:00 05/28/18 10:06 Mirapex - PO 0.5 mg BID DANIELLE Administration Ranitidine HCl 150 mg 05/28/18 10:00 Zantac - PO DAILY PRN HEARTBURN Home Medications Medication Instructions Recorded Acetaminophen [Tylenol] 325 mg PO DAILY PRN 05/16/16 Aspirin [ASA -] 81 mg PO DAILY 05/16/16 Ezetimibe [Zetia] 10 mg PO DAILY 05/16/16 Fexofenadine HCl [Mya Allergy] 180 mg PO DAILY PRN 05/16/16 Nebivolol [Bystolic -] 5 mg PO DAILY 05/16/16 Pramipexole Di-HCl [Pramipexole 0.5 mg PO BID 05/16/16 Dihydrochloride] Ramipril 5 mg PO DAILY 05/16/16 Hydrochlorothiazide [Hctz -] 12.5 mg PO DAILY 05/27/18 Insulin Lispro [Humalog] 100 unit SQ ASDIR 05/27/18 Insulin Glargine,Hum.rec.anlog 100 unit SQ ASDIR 05/28/18 [Basaglar Kwikpen U-100] ASSESSMENT AND PLAN: 62 yo F with PMHx of A-Flutter, DM I , HTN and HLD presents with history of syncope placed on observation to telemetry. # Syncope: as per cardio ok to go home. repeat EKG. follow with Cardio. dr. Gil. continue No atrial arrhythmia noted, Nothing on tele monitor, outpatient 30 day monitor and routine outpatient stress test to confirm whether any ischemic heart dz present, patient needs to follow up with Dr. Gil for further work up. # DM type 1: on insulin pump. ADA diet, continue home regimen #atrial flutter: in CHADS VASC = 2 , on aspirin at home will continue, In NSR here, on bystolic to continue # HTN : BP is well controlled on HCTZ 12.5mg PO, Bystolic 5mg PO daily continue # HLD on Zetia. # Hypophosphatemia will replace with NaPhos packet. repeat Phos in AM DVT prophylaxis: SCD's both legs
--- NOTE | 2018-05-28 14:28 | DS ---
Physical Exam: SUBJECTIVE: Patient seen and examined this morning at bedside. She denies any neurological hx including seizures, syncope. Patient decided to visit the ED bc she wanted to find out why she syncopized. Patient has not had any repeat episodes since initial episode on Monday. Since arrival, she denies any fevers, chills, chest pain, SOB, nausea, vomiting , diarrhea, constipation, lightheadedness, dizziness, palpitations. OBJECTIVE: Vital Signs Period Temp Pulse Resp BP Sys/Ro Pulse Ox Last 24 Hr 95 F-98.8 F 75-83 16-18 109-116/64-78 95-97 PHYSICAL EXAM GENERAL: A&Ox3, NAD HEAD: NCAT EYES: PERRL, EOMI ENT: Oropharynx clear without exudates, moist mucous membranes. NECK: No JVD LUNGS: Breath sounds equal, clear to auscultation bilaterally, no wheezes. HEART: Regular rate and rhythm, S1, S2 without murmur ABDOMEN: Soft, nontender, nondistended, + bowel sounds, no guarding EXTREMITIES: 2+ pulses, no edema. NEUROLOGICAL: Cranial nerves II through XII grossly intact. Normal speech. C5- T1 gross sensation intact. 5/5 Muscle strength to handgrip, Shoulder abduction, Elbow flexion/extension, Hip flexion/extension, Plantarflexion, dorsi flexion. SKIN: Warm, dry, no rashes or lesions noted. LABS Laboratory Last Values WBC 5.3 K/mm3 (4.0-10.0) 05/28/18 07:00 RBC 4.49 M/mm3 (3.60-5.2) 05/28/18 07:00 Hgb 13.5 GM/dL (10.7-15.3) 05/28/18 07:00 Hct 41.5 % (32.4-45.2) 05/28/18 07:00 MCV 92.4 fl (80-96) 05/28/18 07:00 MCH 30.0 pg (25.7-33.7) 05/28/18 07:00 MCHC 32.4 g/dl (32.0-36.0) 05/28/18 07:00 RDW 13.8 % (11.6-15.6) 05/28/18 07:00 Plt Count 237 K/MM3 (134-434) D 05/28/18 07:00 MPV 8.1 fl (7.5-11.1) 05/28/18 07:00 Absolute Neuts (auto) 3.1 K/mm3 (1.5-8.0) 05/28/18 07:00 Neutrophils % 57.8 % (42.8-82.8) D 05/28/18 07:00 Lymphocytes % 29.0 % (8-40) D 05/28/18 07:00 Monocytes % 9.6 % (3.8-10.2) D 05/28/18 07:00 Eosinophils % 2.8 % (0-4.5) D 05/28/18 07:00 Basophils % 0.8 % (0-2.0) 05/28/18 07:00 Nucleated RBC % 0 % (0-0) 05/28/18 07:00 Sodium 140 mmol/L (136-145) 05/28/18 07:00 Potassium 3.7 mmol/L (3.5-5.1) 05/28/18 07:00 Chloride 104 mmol/L (98-107) 05/28/18 07:00 Carbon Dioxide 29 mmol/L (21-32) 05/28/18 07:00 Anion Gap 8 MMOL/L (8-16) 05/28/18 07:00 BUN 24 mg/dL (7-18) H 05/28/18 07:00 Creatinine 0.7 mg/dL (0.55-1.3) 05/28/18 07:00 Creat Clearance w eGFR > 60 (>60) 05/28/18 07:00 Random Glucose 196 mg/dL (74-106) H 05/28/18 07:00 Calcium 9.1 mg/dL (8.5-10.1) 05/28/18 07:00 Phosphorus 3.1 mg/dL (2.5-4.9) 05/28/18 07:00 Magnesium 2.5 mg/dL (1.8-2.4) H 05/28/18 07:00 Total Bilirubin 1.3 mg/dL (0.2-1) H 05/28/18 07:00 AST 14 U/L (15-37) L 05/28/18 07:00 ALT 13 U/L (13-61) 05/28/18 07:00 Alkaline Phosphatase 72 U/L (45-117) 05/28/18 07:00 Troponin I < 0.02 ng/ml (0.00-0.05) 05/28/18 12:55 Total Protein 7.0 g/dl (6.4-8.2) 05/28/18 07:00 Albumin 3.5 g/dl (3.4-5.0) 05/28/18 07:00 TSH 0.65 uIU/ml (0.358-3.74) 05/28/18 10:52 Free T4 1.01 ng/dl (0.76-1.46) 05/28/18 10:52 IMAGING: -CXR: No acute chest pathology. No significant change since 12/26/2004 study. -EKG: NORMAL SINUS RHYTHM, NORMAL ECG, VR 80, QTc 429 -ECHO: LV Systolic function and size is normal, No regional wall motion abnormalities noted, EF 60-65% HOSPITAL COURSE: Date of Admission:05/27/18 Date of Discharge: 05/28/18 62 y/o F with PMHx of A-Flutter, DM, HTN and HLD presented to [facility] with syncope and was observed on Tele. Cardiology (Dr. Krishnamurthy) was consulted and suggested Echo and EKG (noted above). Troponins were < 0.02 x 2. Thyroid function tests were done noted above. Patient continued all of her home medications. Patient was discharged home with strict instructions to follow up with Dr. Gil in one week to schedule 30 day outpatient heart monitoring and Routine stress test. Minutes to complete discharge: 45 Discharge Summary Reason For Visit: SYNCOPE Current Active Problems DM type 1 (diabetes mellitus, type 1) (Acute) DVT prophylaxis (Acute) HLD (hyperlipidemia) (Acute) HTN (hypertension) (Acute) Hypophosphatemia (Acute) Syncope (Acute) Condition: Stable - Instructions Diet, Activity, Other Instructions: You presented to the hospital after a syncopal episode. Your workup revealed it was not cardiac in nature. Follow up with the following physicians: 1. Cardiology: Dr. Gil in one week, please call to schedule follow up as you need to have 30 day outpatient heart monitoring and to schedule a routine stress test. Continue all your other medications as prescribed Please return to the ER if you have any signs or symptoms of chest pain, shortness of breath, uncontrollable fever, chills, nausea, vomiting, numbness, tingling, or weakness in any part of your body, changes in vision, or slurred speech. Please return to the ER if symptoms persist, worsen, or new symptoms arise. Referrals: Chun Mckee [Primary Care Provider] - James Gil MD [Staff Physician] - Disposition: HOME - Home Medications Comprehensive Discharge Medication List: Ambulatory Orders Acetaminophen [Tylenol] 325 mg PO DAILY PRN 05/16/16 Aspirin [ASA -] 81 mg PO DAILY 05/16/16 Ezetimibe [Zetia] 10 mg PO DAILY 05/16/16 Fexofenadine HCl [Mya Allergy] 180 mg PO DAILY PRN 05/16/16 Nebivolol [Bystolic -] 5 mg PO DAILY 05/16/16 Pramipexole Di-HCl [Pramipexole Dihydrochloride] 0.5 mg PO BID 05/16/16 Ramipril 5 mg PO DAILY 05/16/16 Hydrochlorothiazide [Hctz -] 12.5 mg PO DAILY 05/27/18 Insulin Lispro [Humalog] 100 unit SQ ASDIR 05/27/18 Insulin Glargine,Hum.rec.anlog [Basaglar Kwikpen U-100] 100 unit SQ ASDIR This patient is new to me today: Yes Date on this admission: 05/28/18 Emergency Visit: Yes ED Registration Date: 05/27/18 Care time: The patient presented to the Emergency Department on the above date and was hospitalized for further evaluation of their emergent condition. Critical Care patient: No - Discharge Referral Referred to [facility] Med P.C.: No
--- NOTE | 2018-05-28 15:05 | EKG ---
Test Reason : Blood Pressure : / mmHG Vent. Rate : 075 BPM Atrial Rate : 075 BPM P-R Int : 128 ms QRS Dur : 084 ms QT Int : 392 ms P-R-T Axes : 067 051 045 degrees QTc Int : 437 ms NORMAL SINUS RHYTHM NORMAL ECG WHEN COMPARED WITH ECG OF 27-MAY-2018 08:34, NO SIGNIFICANT CHANGE WAS FOUND Confirmed by NAVEEN CONTE MD ([id number]) on 05/28/2018 3:05:09 PM Referred By: SHERI BOJORQUEZ DR Confirmed By:NAVEEN CONTE MD
[2018-05-28 18:36] VITALS: BP 120/70; PULSE 83
== END 2018-05-28 18:37 | disposition home or self-care (01) ==
LOC: JER 06:05 → JERBED 10:02
PROVIDERS: ADMIT Internal Medicine; ATTEND Internal Medicine
DX: R55 Syncope and collapse (principal); I10 Essential (primary) hypertension; E10.9 Type 1 diabetes mellitus without complications; Z96.41 Presence of insulin pump (external) (internal); Z79.4 Long term (current) use of insulin; I48.92 Unspecified atrial flutter; E78.5 Hyperlipidemia, unspecified; E83.39 Other disorders of phosphorus metabolism
CPT/HCPCS: 36415; 71045-TC-FY; 80053; 83735; 84100; 84439; 84443; 84481; 84484; 85025; 93005; 93010; 93306-TC; 99284-25; G0378

== ENCOUNTER 2018-11-14 08:19 | Emergency (ER) | payer SELFPAY ==
[2018-11-14 08:46] VITALS: BMI 25.7
[2018-11-14] MEDS ORDERED: MECLIZINE HCL 25 MG TABLET (FP) PO ONE (10:21)
[2018-11-14] MEDS ORDERED: MECLIZINE HCL 25 MG TABLET (FP) ONE (10:45)
[2018-11-14 11:13] LABS: BASO % 0.7 % (0-2.0); EOS % 0.8 % (0-4.5); HEMATOCRIT 41.1 % (32.4-45.2); HEMOGLOBIN 13.9 GM/dL (10.7-15.3); LYMPH % 20.7 % (8-40); MCH 30.5 pg (25.7-33.7); MCHC 33.9 g/dl (32.0-36.0); MEAN PLT VOLUME 8.2 fl (7.5-11.1); MONO % 4.6 % (3.8-10.2); NEUT % 73.2 % (42.8-82.8); PLATELET COUNT 272 K/MM3 (134-434); RBC 4.57 M/mm3 (3.60-5.2); RDW 13.9 % (11.6-15.6); WHITE BLOOD COUNT 5.5 K/mm3 (4.0-10.0)
--- NOTE | 2018-11-14 11:16 | PDOC ---
Documentation entered by Lorraine Davis SCRIBE, acting as scribe for Vahe Sheikh MD. Vahe Sheikh MD: This documentation has been prepared by the Susan deutsch Sammi, SCRIBE, under my direction and personally reviewed by me in its entirety. I confirm that the documentation accurately reflects all work, treatment, procedures, and medical decision making performed by me. History of Present Illness - General Chief Complaint: Lightheaded Stated Complaint: DIZZNESS Time Seen by Provider: 11/14/18 09:48 - History of Present Illness Initial Comments: 11/14/18 10:27 Patient is a 62 year old female, who presents with dizziness, onset this morning , aggravated with head movements. Pt took blood sugar, 170. Denies change in vision, nausea, and vomiting. Pt has history of migraines, retinopathy, chronic bilateral tinnitus, DM and HTN. PCP: Talisha [facility] Department Supervisor: Jeffery Past History - Past Medical History Allergies/Adverse Reactions: Allergies Allergy/AdvReac Type Severity Reaction Status Date / Time No Known Allergies Allergy Verified 11/14/18 08:46 Home Medications: Ambulatory Orders Aspirin [ASA -] 81 mg PO DAILY 11/14/18 Atorvastatin Ca [Lipitor] 20 mg PO HS 11/14/18 Fexofenadine HCl [Mya Allergy] 180 mg PO PRN 11/14/18 Hydrochlorothiazide [Hctz -] 12.5 mg PO DAILY 11/14/18 Insulin Pump [Insulin Pump - (Nf)] 1 each NR ASDIR 11/14/18 Metoprolol Succinate [Toprol Xl] 25 mg PO DAILY 11/14/18 Multivitamin [One-Daily Multi-Vitamin] 1 each PO DAILY 11/14/18 Pramipexole Dihydrochloride [Mirapex -] 0.5 mg PO BID 11/14/18 Ramipril [Altace] 5 mg PO DAILY 11/14/18 COPD: No Diabetes: Yes - Immunization History Immunization Up to Date: Yes - Suicide/Smoking/Psychosocial Hx Smoking History: Never smoked Have you smoked in the past 12 months: No Information on smoking cessation initiated: No Hx Alcohol Use: No Drug/Substance Use Hx: No Substance Use Type: None Review of Systems - Review of Systems Comments:: 11/14/18 10:27 CONSTITUTIONAL: No fever, no chills, no fatigue EYES: No visual changes ENT: No ear pain, no sore throat CARDIOVASCULAR: No chest pain, no palpitations RESPIRATORY: No cough, no SOB GI: No abdominal pain, no nausea, no vomiting, no constipation, no diarrhea GENITOURINARY: No dysuria, no frequency, no hematuria MUSKULOSKELETAL: No backpain, no joint pain, no myalgias SKIN: No rash NEURO: (+)Dizzy *Physical Exam - Vital Signs Last Vital Signs Temp Pulse Resp BP Pulse Ox 98.4 F 94 H 18 152/92 98 11/14/18 08:38 11/14/18 08:38 11/14/18 08:38 11/14/18 08:38 11/14/18 08:38 - Physical Exam Comments: 11/14/18 10:26 CONSTITUTIONAL: Well-appearing; well-nourished; in no apparent distress HEAD: Normocephalic; atraumatic EYES: Carolin, EOMI; no nystagmus;+ significant limitations to the right eye visual kaplan related to prematurity retinopathy (known to be old) ENMT: External appears normal; normal oropharynx NECK: Supple; non-tender; no cervical lymphadenopathy CARD: Normal S1, S2; no murmurs, rubs, or gallops RESP: Normal chest excursion with respiration; breath sounds clear and equal bilaterally; no wheezes, rhonchi, or rales ABD: Soft, non-distended; non-tender; no palpable organomegaly, no palpable hernias EXT: Normal ROM in all four extremities; non-tender to palpation; distal pulses intact SKIN: Warm, dry, no rash NEURO: Cranial nerves II through XII are grossly intact; motor is 5 of 54; no pronation drift; no dysmetria; finger to nose is equal bilaterally, rapid alternating movements are intact bilaterally gait-deferred. flores-Hallpike maneuver is positive. ED Treatment Course - LABORATORY CBC & Chemistry Diagram: 11/14/18 10:52 11/14/18 10:52 - RADIOLOGY Radiology Studies Ordered: Category Date Time Status HEAD CT WITHOUT CONTRAST [CT] Stat CT Scan 11/14/18 10:21 Taken - Medications Given in the ED: ED Medications Discontinued Medications Generic Name Dose Route Start Last Admin Trade Name Freq PRN Reason Stop Dose Admin Meclizine HCl 25 mg 11/14/18 10:21 11/14/18 10:48 Antivert - PO 11/14/18 10:22 25 mg ONCE ONE Administration Medical Decision Making - Medical Decision Making 11/14/18 11:15 62-year-old female with history of diabetes, restless leg syndrome, hypertension , chronic tinnitus presents with signs and symptoms of acute benign positional vertigo. I do not suspect centrally induced vertigo at this time. We will administer meclizine. We'll observe. 11/14/18 15:21 Patient reassessed. Patient is resting comfortably and is currently symptom- free. Patient is tolerating by mouth in the ER. Will discharge with outpatient ENT follow-up further evaluation. *DC/Admit/Observation/Transfer Diagnosis at time of Disposition: Vertigo - Discharge Dispostion Disposition: HOME Condition at time of disposition: Stable - Referrals Referrals: Chun Mckee [Primary Care Provider] - Bakari Reyes MD [Staff Physician] - - Patient Instructions Printed Discharge Instructions: DI for Vertigo, DI for Meniere's Disease - Post Discharge Activity - Attestations Physician Attestion: 11/14/18 11:13 The documentation was prepared by the scribe under my direct supervision. I have reviewed the documentation which correctly represents the findings, medical decision-making and critical action taken by me.
[2018-11-14 11:39] LABS: ALBUMIN 3.9 g/dl (3.4-5.0); ALK PHOS 88 U/L (45-117); ANION GAP 5 MMOL/L (8-16); BILIRUBIN,TOTAL 0.8 mg/dL (0.2-1); BLOOD UREA NITROGEN 23 mg/dL (7-18); CHLORIDE 108 mmol/L (98-107); CO2 28 mmol/L (21-32); CREATININE 0.5 mg/dL (0.55-1.3); GLUCOSE,RANDOM 101 mg/dL (74-106); POTASSIUM 4.2 mmol/L (3.5-5.1); SGOT/AST 20 U/L (15-37); SGPT/ALT 29 U/L (13-61); SODIUM 141 mmol/L (136-145); TOT PROT 7.7 g/dl (6.4-8.2)
[2018-11-14] MEDS ORDERED: SODIUM CHLORIDE 500 ML IV STA (12:11)
--- NOTE | 2018-11-14 12:26 | EKG ---
Test Reason : Blood Pressure : / mmHG Vent. Rate : 086 BPM Atrial Rate : 086 BPM P-R Int : 132 ms QRS Dur : 072 ms QT Int : 370 ms P-R-T Axes : 071 028 040 degrees QTc Int : 442 ms NORMAL SINUS RHYTHM POSSIBLE LEFT ATRIAL ENLARGEMENT BORDERLINE ECG WHEN COMPARED WITH ECG OF 28-MAY-2018 10:37, NO SIGNIFICANT CHANGE WAS FOUND Confirmed by WINTER HUANG, HELGA ([id number]) on 11/14/2018 12:26:32 PM Referred By: Confirmed By:HELGA MAX MD
[2018-11-14 15:42] VITALS: BP 147/86; PULSE 86; TEMP 97.8
== END 2018-11-14 15:43 | disposition home or self-care (01) ==
LOC: JER 08:19
PROC: 3E0337Z Introduction of Electrolytic and Water Balance Substance into Peripheral Vein, Percutaneous Approach (ICD-10-PCS; principal; 2018-11-14)
DX: R42 Dizziness and giddiness (principal); E11.9 Type 2 diabetes mellitus without complications; I10 Essential (primary) hypertension; G25.81 Restless legs syndrome; H93.19 Tinnitus, unspecified ear
CPT/HCPCS: 36415; 70450-TC; 80053; 82550; 84484; 85025; 93005; 93010; 99282-25

== ENCOUNTER 2019-02-10 11:01 | Emergency (ER) | payer OTHER ==
[2019-02-10 11:10] VITALS: BP 110/62; PULSE 78; TEMP 98.7; BMI 24.7
--- NOTE | 2019-02-10 11:40 | PDOC ---
History of Present Illness - General Chief Complaint: Injury Stated Complaint: INJURY Time Seen by Provider: 02/10/19 11:07 History Source: Patient Exam Limitations: No Limitations - History of Present Illness Initial Comments: 02/10/19 11:25 HISTORY OF PRESENT ILLNESS: This 63-year-old woman past medical history of IDDM , hypertension, hyperlipidemia presents emergency department for evaluation of left foot wound after being stepped on by a dog on 02/08. Patient reports the dog 's nails scratched her and avulsed some skin. Patient reports she has a standing appointment with her application dba but the next appointment is in April. Patient denies any neurosensory or motor deficits after the injury. No recent travel or sick contacts. PAST MEDICAL HISTORY: see HPI SURGICAL HISTORY: Denies ALLERGIES: No known drug allergies REVIEW OF SYSTEMS General/Constitutional: Denies fever or chills. Denies weakness, weight change. HEENT: Denies change in vision. Denies ear pain or discharge. Denies sore throat. Cardiovascular: Denies chest pain or shortness of breath. Respiratory: Denies cough, wheezing, or hemoptysis. Gastrointestinal: Denies nausea, vomiting, diarrhea or constipation. Denies rectal bleeding. Genitourinary: Denies dysuria, frequency, or change in urination. Musculoskeletal: Denies joint or muscle swelling or pain. Denies neck or back pain. Skin and breasts: see HPI Neurologic: Denies headache, vertigo, loss of consciousness, or loss of sensation. Psychiatric: Denies depression or anxiety. Endocrine: Denies increased thirst. Denies abnormal weight change. Hematologic/Lymphatic: Denies anemia, easy bleeding, or history of blood clots. Allergic/Immunologic: Denies hives or skin allergy. Denies latex allergy. PHYSICAL EXAM General Appearance: Well-appearing, appropriately dressed. No apparent distress , no intoxication. Respiratory/Chest: Lungs CTAB. No shortness of breath, chest tenderness, respiratory distress, accessory muscle use. No crackles, rales, rhonchi, stridor , wheezing, dullness Cardiovascular: RRR. S1, S2. No JVD, murmur, bradycardia, tachycardia. Vascular Pulses: Dorsalis-Pedis (R): 2+, Dorsalis-Pedis (L): 2+ Musculoskeletal/Extremities: see integumentary assessment. Integumentary: 4 cm x 1 cm skin avulsion present to the medial aspect of the left foot along the first metatarsal. Additional small avulsion present to the medial aspect of the DIP of the first digit. Bleeding is well-controlled. Granulation tissue appearing. 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 Fully oriented, alert. Appropriate mood/affect. Motor strength 5/5. No appreciable EOM palsy, facial droop or sensory deficit. Past History - Past Medical History Allergies/Adverse Reactions: Allergies Allergy/AdvReac Type Severity Reaction Status Date / Time No Known Allergies Allergy Verified 02/10/19 11:06 Home Medications: Ambulatory Orders Aspirin [ASA -] 81 mg PO DAILY 11/14/18 Atorvastatin Ca [Lipitor] 20 mg PO HS 11/14/18 Fexofenadine HCl [Mya Allergy] 180 mg PO PRN 11/14/18 Hydrochlorothiazide [Hctz -] 12.5 mg PO DAILY 11/14/18 Insulin Pump [Insulin Pump - (Nf)] 1 each NR ASDIR 11/14/18 Metoprolol Succinate [Toprol Xl] 25 mg PO DAILY 11/14/18 Multivitamin [One-Daily Multi-Vitamin] 1 each PO DAILY 11/14/18 Pramipexole Dihydrochloride [Mirapex -] 0.5 mg PO BID 11/14/18 Ramipril [Altace] 5 mg PO DAILY 11/14/18 Cephalexin Monohydrate [Keflex -] 500 mg PO BID #20 capsule 02/10/19 Sulfamethoxazole/Trimethoprim [Bactrim Ds -] 1 tab PO BID #20 tablet 02/10/19 COPD: No Diabetes: Yes (iddm) HTN: Yes Hypercholesterolemia: Yes - Immunization History Immunization Up to Date: Yes - Suicide/Smoking/Psychosocial Hx Smoking History: Never smoked Have you smoked in the past 12 months: No Hx Alcohol Use: No Drug/Substance Use Hx: No Substance Use Type: None *Physical Exam - Vital Signs Last Vital Signs Temp Pulse Resp BP Pulse Ox 98.7 F 78 18 110/62 99 02/10/19 11:03 02/10/19 11:03 02/10/19 11:03 02/10/19 11:03 02/10/19 11:03 ED Treatment Course - RADIOLOGY Radiology Studies Ordered: Category Date Time Status FOOT-LEFT [RAD] Stat Radiology 02/10/19 11:23 Ordered Medical Decision Making - Medical Decision Making 02/10/19 11:40 A/P: 63-year-old woman with foot wound from dog's toenail 2 wounds present to the medial aspect of the left foot extending from the midfoot distally to the distal portion of the left great toe Blanching erythema present surrounding the wounds This patient is an insulin-dependent diabetic we'll get an x-ray to rule out osteomyelitis Patient is up-to-date with tetanus No signs of osteomyelitis or present on x-ray we'll discharge the patient with antibiotics instructions to call her application dba for immediate evaluation within the next 7 days. 02/10/19 11:50 X-rays as read by me: Arthritic changes present. No signs of osteopenia. I will discharge patient home with prescription for Keflex and Bactrim and instructed patient to follow-up with a application dba. If patient is unable to secure an appointment with a application dba she's been instructed to return to the emergency department for a wound check. I discussed the physical exam findings, ancillary test results and final diagnoses with the patient. I answered all of the patient's questions. The patient was satisfied with the care received and felt comfortable with the discharge plan and treatment plan. The patient will call their primary care physician within 24 hours to arrange follow-up and will return to the Emergency Department with any new, persistent or worsening symptoms. *DC/Admit/Observation/Transfer Diagnosis at time of Disposition: Laceration Cellulitis Qualifiers: Site of cellulitis: extremity Site of cellulitis of extremity: lower extremity Laterality: left Qualified Code(s): L03.116 - Cellulitis of left lower limb - Discharge Dispostion Disposition: HOME Condition at time of disposition: Stable Decision to Admit order: No - Prescriptions Prescriptions: Cephalexin Monohydrate [Keflex -] 500 mg PO BID #20 capsule Sulfamethoxazole/Trimethoprim [Bactrim Ds -] 1 tab PO BID #20 tablet - Referrals Referrals: Chun Ernandez MD [Primary Care Provider] - - Patient Instructions Additional Instructions: Take Keflex 500 mg 4 times a day for the next 10 days Take Bactrim DS one tablet twice a day for the next 10 days Finish all antibiotics even if you feel better. Apply warm compresses to your foot as needed. Contacted application dba for evaluation within 1 week. If you are unable to get an appointment with her application dba return to the emergency department or your primary doctor for a wound check. Return to emergency department for any worsening pain, drainage, hearing loss, or any other concerns. Thank you very much for choosing us to provide your emergent health care needs. - Post Discharge Activity
== END 2019-02-10 11:53 | disposition home or self-care (01) ==
LOC: JERFT 11:01
DX: S91.312A Laceration without foreign body, left foot, initial encounter (principal); L03.116 Cellulitis of left lower limb; W54.1XXA Struck by dog, initial encounter; Y93.89 Activity, other specified; Y92.89 Other specified places as the place of occurrence of the external cause; Y99.8 Other external cause status; E11.9 Type 2 diabetes mellitus without complications; Z79.4 Long term (current) use of insulin; I10 Essential (primary) hypertension; E78.00 Pure hypercholesterolemia, unspecified
CPT/HCPCS: 73630-TC-LT; 99281-25

== ENCOUNTER 2019-03-05 07:16 | Emergency (ER) | payer OTHER ==
[2019-03-05 07:49] VITALS: BP 120/67; TEMP 98.7; BMI 25.4
--- NOTE | 2019-03-05 08:11 | PDOC ---
History of Present Illness - General Chief Complaint: Cold Symptoms Stated Complaint: CONGESTION,SORE THROAT Time Seen by Provider: 03/05/19 08:05 History Source: Patient Exam Limitations: No Limitations Past History - Travel Traveled outside of the country in the last 30 days: No Close contact w/someone who was outside of country & ill: No - Past Medical History Allergies/Adverse Reactions: Allergies Allergy/AdvReac Type Severity Reaction Status Date / Time No Known Allergies Allergy Verified 03/05/19 07:44 Home Medications: Ambulatory Orders Aspirin [ASA -] 81 mg PO DAILY 11/14/18 Atorvastatin Ca [Lipitor] 20 mg PO HS 11/14/18 Fexofenadine HCl [Mya Allergy] 180 mg PO PRN 11/14/18 Hydrochlorothiazide [Hctz -] 12.5 mg PO DAILY 11/14/18 Insulin Pump [Insulin Pump - (Nf)] 1 each NR ASDIR 11/14/18 Metoprolol Succinate [Toprol Xl] 25 mg PO DAILY 11/14/18 Multivitamin [One-Daily Multi-Vitamin] 1 each PO DAILY 11/14/18 Pramipexole Dihydrochloride [Mirapex -] 0.5 mg PO BID 11/14/18 Ramipril [Altace] 5 mg PO DAILY 11/14/18 Cephalexin Monohydrate [Keflex -] 500 mg PO BID #20 capsule 02/10/19 Sulfamethoxazole/Trimethoprim [Bactrim Ds -] 1 tab PO BID #20 tablet 02/10/19 Azithromycin [Zithromax 250mg Tablets -] 250 mg PO UTDICT #6 tab 03/05/19 COPD: No Diabetes: Yes HTN: Yes Hypercholesterolemia: Yes - Immunization History Immunization Up to Date: Yes - Suicide/Smoking/Psychosocial Hx Smoking History: Never smoked Have you smoked in the past 12 months: No Hx Alcohol Use: No Drug/Substance Use Hx: No Substance Use Type: None Review of Systems - Review of Systems Able to Perform ROS?: Yes Comments:: 03/05/19 08:11 CONSTITUTIONAL: Absent: fever, chills, diaphoresis, generalized weakness, malaise, loss of appetite HEENT: Present: sore throat, nasal congestion Absent: throat swelling, difficulty swallowing, mouth swelling, ear pain, eye pain, visual Changes CARDIOVASCULAR: Absent: chest pain, loss of consciousness, palpitations, irregular heart rate, peripheral edema RESPIRATORY: Present: dry cough Absent: shortness of breath, dyspnea with exertion, orthopnea , wheezing, stridor, hemoptysis GASTROINTESTINAL: Absent: abdominal pain, abdominal distension, nausea, vomiting, diarrhea, constipation, melena, hematochezia GENITOURINARY: Absent: dysuria, frequency, urgency, hesitancy, hematuria, flank pain, genital pain MUSCULOSKELETAL: Absent: myalgia, arthralgia, joint swelling SKIN: Absent: rash, itching, pallor HEMATOLOGIC/IMMUNOLOGIC: Absent: easy bleeding, easy bruising, lymphadenopathy, frequent infections ENDOCRINE: Absent: unexplained weight gain, unexplained weight loss, heat intolerance, cold intolerance NEUROLOGIC: Absent: headache, focal weakness or paresthesias, dizziness, unsteady gait, seizure, mental status changes, bladder or bowel incontinence PSYCHIATRIC: Absent: anxiety, depression, suicidal or homicidal ideation, hallucinations. Is the patient limited Kinyarwanda proficient: No *Physical Exam - Vital Signs Last Vital Signs Temp Pulse Resp BP Pulse Ox 98.7 F 94 H 18 120/67 98 03/05/19 07:44 03/05/19 07:44 03/05/19 07:44 03/05/19 07:44 03/05/19 07:44 - Physical Exam Comments: 03/05/19 08:11 GENERAL: Well developed, well nourished. Awake and alert. No acute distress. HEENT: Normocephalic, atraumatic. PERRLA, EOMI. No conjunctival pallor. Sclera are non- icteric. Moist mucous membranes. Oropharynx is clear. NECK: Supple. Full ROM. No JVD. Carotid pulses 2+ and symmetric, without bruits. No thyromegaly. No lymphadenopathy. CARDIOVASCULAR: Regular rate and rhythm. No murmurs, rubs, or gallops. Distal pulses are 2+ and symmetric. PULMONARY: No evidence of respiratory distress. Course lung sounds on the L. No wheezing, rales or rhonchi. ABDOMINAL: Soft. Non-tender. Non-distended. No rebound or guarding. No organomegaly. Normoactive bowel sounds. MUSCULOSKELETAL Normal range of motion at all joints. No bony deformities or tenderness. No CVA tenderness. EXTREMITIES: No cyanosis. No clubbing. No edema. No calf tenderness. SKIN: Warm and dry. Normal capillary refill. No rashes. No jaundice. NEUROLOGICAL: Alert, awake, appropriate. Cranial nerves 2-12 intact. No deficits to light touch and temperature in face, upper extremities and lower extremities. No motor deficits in the in face, upper extremities and lower extremities. Normoreflexic in the upper and lower extremities. Normal speech. Toes are down- going bilaterally. Gait is normal without ataxia. PSYCHIATRIC: Cooperative. Good eye contact. Appropriate mood and affect. Medical Decision Making - Medical Decision Making 03/05/19 16:01 The patient is a 63-year-old female with past medical history of IDDM, hypertension, who presents to the ER today with 4 days of sore throat, dry cough , laryngitis. She states that she has tried using [id number] Motrin and cough syrup with little relief of her symptoms. Denies productive cough, difficulty. Supra, earache, nausea, vomiting and diarrhea. A/P: URI On exam patient with coarse lung sounds on the left side with good aeration to the bases does not clear with coughing. Throat shows no erythema or exudate. Rapid strep sent given patient's past medical history; it is negative at this time Given the length of symptoms with comorbidities we will treat with an outpatient Z-Salty Discharge home with primary care follow-up I discussed the physical exam findings, ancillary test results and final diagnoses with the patient. I answered all of the patient's questions. The patient was satisfied with the care received and felt comfortable with the discharge plan and treatment plan. The Patient agrees to follow up with the primary care physician/specialist within 24-72 hours. Return precautions were given. *DC/Admit/Observation/Transfer Diagnosis at time of Disposition: Upper respiratory infection Qualifiers: URI type: unspecified viral URI Qualified Code(s): J06.9 - Acute upper respiratory infection, unspecified - Discharge Dispostion Disposition: HOME Condition at time of disposition: Stable Decision to Admit order: No - Prescriptions Prescriptions: Azithromycin [Zithromax 250mg Tablets -] 250 mg PO UTDICT #6 tab - Referrals Referrals: Chun Ernandez MD [Primary Care Provider] - - Patient Instructions Printed Discharge Instructions: DI for Viral Upper Respiratory Infection -- Adult Additional Instructions: You have an upper respiratory infection, or the common cold. Your strep testing was negative today. Take the Z-pack as directed Please take Motrin 800 mg every 8 hours as needed for pain not to exceed 3000 mg a day. Drink plenty of fluids. Cough drops and warm tea may help your symptoms as well. Please follow up with her primary care doctor this week. Return to the emergency department if you have difficulty breathing, shortness of breath, worsening pain, nausea, vomiting or if you have any changes in your symptoms. - Post Discharge Activity Forms/Work/School Notes: Back to Work
[2019-03-05] MEDS ORDERED: ALBUTEROL SO4 2.5/IPRATROPIUM 0.5 INH SOL 3 ML VIAL.NEB. NEB ONE ×2 (08:30→08:37)
[2019-03-05 09:26] VITALS: PULSE 88
== END 2019-03-05 09:25 | disposition home or self-care (01) ==
LOC: JER 07:16 → JERFT 07:16
PROC: 3E0F7GC Introduction of Other Therapeutic Substance into Respiratory Tract, Via Natural or Artificial Opening (ICD-10-PCS; principal; 2019-03-05)
DX: J06.9 Acute upper respiratory infection, unspecified (principal); B97.89 Other viral agents as the cause of diseases classified elsewhere; I10 Essential (primary) hypertension; E78.00 Pure hypercholesterolemia, unspecified; E11.9 Type 2 diabetes mellitus without complications; Z79.4 Long term (current) use of insulin; Z96.41 Presence of insulin pump (external) (internal)
CPT/HCPCS: 71046-TC-FY; 87070; 87880; 99281-25

== ENCOUNTER 2019-03-09 11:30 | Emergency (ER) | payer OTHER | END 2019-03-09 12:45 | disposition home or self-care (01) | LOC: JER 11:30 → JERFT 12:45 ==

== ENCOUNTER 2019-03-16 20:07 | Inpatient (IN) | payer OTHER ==
[2019-03-16] MEDS ORDERED: AMPICILLIN NA/SULBACTAM NA 1.5 GM in SODIUM CHLORIDE 100 ML IVPB ONE ×2 (21:57→22:21)
--- NOTE | 2019-03-16 22:04 | PDOC ---
History of Present Illness <Christie Guerra - Last Filed: 03/16/19 23:59> - General History Source: Patient Exam Limitations: No Limitations <ShashiChun - Last Filed: 03/17/19 00:53> - General Chief Complaint: Wound Stated Complaint: ABCESS BOIL Time Seen by Provider: 03/16/19 21:35 Past History <Christie Guerra - Last Filed: 03/16/19 23:59> - Past Medical History COPD: No Diabetes: Yes HTN: Yes Hypercholesterolemia: Yes - Immunization History Immunization Up to Date: Yes - Suicide/Smoking/Psychosocial Hx Smoking History: Never smoked Have you smoked in the past 12 months: No Information on smoking cessation initiated: No Hx Alcohol Use: No Drug/Substance Use Hx: No Substance Use Type: None <Chun Danielle - Last Filed: 03/17/19 00:53> - Past Medical History Allergies/Adverse Reactions: Allergies Allergy/AdvReac Type Severity Reaction Status Date / Time No Known Allergies Allergy Verified 03/16/19 20:12 Home Medications: Ambulatory Orders Aspirin [ASA -] 81 mg PO DAILY 11/14/18 Atorvastatin Ca [Lipitor] 20 mg PO HS 11/14/18 Fexofenadine HCl [Mya Allergy] 180 mg PO PRN 11/14/18 Hydrochlorothiazide [Hctz -] 12.5 mg PO DAILY 11/14/18 Insulin Pump [Insulin Pump - (Nf)] 1 each NR ASDIR 11/14/18 Metoprolol Succinate [Toprol Xl] 25 mg PO DAILY 11/14/18 Multivitamin [One-Daily Multi-Vitamin] 1 each PO DAILY 11/14/18 Pramipexole Dihydrochloride [Mirapex -] 0.5 mg PO BID 11/14/18 Ramipril [Altace] 5 mg PO DAILY 11/14/18 Mupirocin Ointment [Bactroban 2% Ointment -] 1 applic TP BID #1 tube 03/09/19 Review of Systems - Review of Systems Able to Perform ROS?: Yes Is the patient limited Vincentian proficient: No <Chun Danielle - Last Filed: 03/17/19 00:53> *Physical Exam - Vital Signs Last Vital Signs Temp Pulse Resp BP Pulse Ox 98.9 F 97 H 16 127/65 100 03/16/19 20:09 03/16/19 20:09 03/16/19 20:09 03/16/19 20:09 03/16/19 20:09 <Christie Guerra - Last Filed: 03/16/19 23:59> - Vital Signs Last Vital Signs Temp Pulse Resp BP Pulse Ox 98.9 F 97 H 16 127/65 100 03/16/19 20:09 03/16/19 20:09 03/16/19 20:09 03/16/19 20:09 03/16/19 20:09 <Chun Danielle - Last Filed: 03/17/19 00:53> Procedures - Incision and Drainage I&D Site: Left: Groin (left labium near mons) Anesthesia: 1% Lidocaine Volume(ml): 5 Blade Size: 10 Attempts: 1 (patient tolerated well) Iodinated Packin/4 in Complications: none Dressing: Yes (bandage provided in kit ) Progress: 03/17/19 00:53 patient tolerated procedure well <Chun Danielle - Last Filed: 03/17/19 00:53> ED Treatment Course - LABORATORY CBC & Chemistry Diagram: 03/16/19 22:30 03/16/19 22:30 - ADDITIONAL ORDERS Additional order review: Laboratory Results 03/16/19 03/16/19 22:30 22:30 Sodium 146 H Potassium 3.6 Chloride 112 H Carbon Dioxide 29 Anion Gap 5 L BUN 28.3 H Creatinine 0.6 Est GFR (CKD-EPI)AfAm 110.86 Est GFR (CKD-EPI)NonAf 95.65 Random Glucose 47 L* Calcium 9.5 Total Bilirubin 0.6 AST 21 ALT 25 Alkaline Phosphatase 92 C-Reactive Protein 0.4 H Total Protein 7.1 Albumin 3.4 03/16/19 22:30 RBC 3.78 MCV 91.8 MCHC 33.6 RDW 14.4 MPV 8.0 Neutrophils % 70.4 Lymphocytes % 18.8 Monocytes % 7.8 Eosinophils % 2.5 D Basophils % 0.5 - Medications Given in the ED: ED Medications Discontinued Medications Generic Name Dose Route Start Last Admin Trade Name Freq PRN Reason Stop Dose Admin Dextrose 25 gm 03/16/19 23:29 03/16/19 23:42 D50w (Vial) - IVPUSH 03/16/19 23:30 25 gm NOW ONE Administration Ampicillin Sodium/Sulbactam 100 mls @ 200 mls/hr 03/16/19 21:57 03/16/19 22: 53 Sodium 1.5 gm/ Sodium Chloride IVPB 03/16/19 22:26 Not Given ONCE ONE Ampicillin Sodium/Sulbactam 100 mls @ 200 mls/hr 03/16/19 22:21 03/16/19 22: 53 Sodium 1.5 gm/ Sodium Chloride IVPB 03/16/19 22:26 200 mls/hr ONCE ONE Administration <Christie Guerra - Last Filed: 03/16/19 23:59> - LABORATORY CBC & Chemistry Diagram: 03/16/19 22:30 03/16/19 22:30 <Chun Danielle - Last Filed: 03/17/19 00:53> Medical Decision Making - Medical Decision Making 03/16/19 21:56 63 yo F pmh IDDM, HTN presenting with worsening left labial abscess. Was seen 7 days ago in fast track and prescribed clindamycin w/ leather currier f/u as abscess not ready to be drained. Take 3 full days of clindamycin but stopped due to diarrhea ; could not tolerate. Endorsen worsening pain w/ greenish discharge. Denies f/c/ n/v/abdpain/poorPO, vaginal discharge/bleeding, dysuria. Well controlled IDDM. Did not f/u w/ leather currier but has pcp appt on 05/20/19. 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 CV: tachycardic, S1/S2, no mrg LUNG: CTAB no wheezes crackles GI: soft, ntnd, +BS, no rebound, not guarding. : 2x2cm erythematous abscess with purulence. 63 yo F returning with worsening of pain in existing abscess, could not tolerate clindamycin due to diarrhea. Exam demonstrated a 2x2cm erythematous abscess with purulence. Afebrile. - CBC, CMP - Wound cx - Unasyn - I&D admit for IV abx 03/16/19 23:27 Pt hypoglycemic to 40s, diaphoretic, provided juice to raise blood sugars 03/17/19 00:50 I&D drained 10cc purulent foul smelling substance; provided lidocaine and morphine for anesthetic needs admission signed out to night team <Chun Danielle - Last Filed: 03/17/19 00:53> *DC/Admit/Observation/Transfer - Discharge Dispostion Decision to Admit order: Yes <Christie Guerra - Last Filed: 03/16/19 23:59> <Chun Danielle - Last Filed: 03/17/19 00:53> Diagnosis at time of Disposition: DM type 1 (diabetes mellitus, type 1), Acute abscess of female pelvis, Hypotension - Discharge Dispostion Condition at time of disposition: Guarded - Referrals Referrals: Chun Ernandez MD [Primary Care Provider] - - Patient Instructions - Post Discharge Activity
[2019-03-16 22:43] LABS: BASO % 0.5 % (0-2.0); EOS % 2.5 % (0-4.5); HEMATOCRIT 34.7 % (32.4-45.2); HEMOGLOBIN 11.6 GM/dL (10.7-15.3); LYMPH % 18.8 % (8-40); MCH 30.8 pg (25.7-33.7); MCHC 33.6 g/dl (32.0-36.0); MEAN CELL VOLUME 91.8 fl (80-96); MONO % 7.8 % (3.8-10.2); NEUT % 70.4 % (42.8-82.8); PLATELET COUNT 340 K/MM3 (134-434); RBC 3.78 M/mm3 (3.60-5.2); RDW 14.4 % (11.6-15.6); WHITE BLOOD COUNT 8.2 K/mm3 (4.0-10.0)
[2019-03-16 23:21] LABS: ALBUMIN 3.4 g/dl (3.4-5.0); BILIRUBIN,TOTAL 0.6 mg/dL (0.2-1); BLOOD UREA NITROGEN 28.3 mg/dL (7-18); CALCIUM 9.5 mg/dL (8.5-10.1); CREATININE 0.6 mg/dL (0.55-1.3); POTASSIUM 3.6 mmol/L (3.5-5.1); TOT PROT 7.1 g/dl (6.4-8.2)
[2019-03-16] MEDS ORDERED: DEXTROSE 50%-WATER - 25 GM/50 ML VIAL IVPUSH ONE (23:29)
[2019-03-16] MEDS ORDERED: DEXTROSE 50%-WATER 25 GM/50 ML DISP.SYRIN ONE (23:37)
[2019-03-16] MEDS ORDERED: morphine CARPU-JECT 2 MG/1 ML DISP.SYRIN IVPUSH ONE (23:59)
[2019-03-17] MEDS ORDERED: MORPHINE SULFATE 2 MG/ML VIAL ONE (00:03)
--- NOTE | 2019-03-17 00:46 | PDOC ---
Documentation entered by Susan Zuñiga SCRIBE, acting as scribe for Christie Guerra MD. Chrisite Guerra MD: This documentation has been prepared by the Yogesh deutsch Nirvannie, SCRIBE, under my direction and personally reviewed by me in its entirety. I confirm that the documentation accurately reflects all work, treatment, procedures, and medical decision making performed by me. Attending Attestation - Resident Resident Name: DanielleChnu - ED Attending Attestation I have performed the following: I have examined & evaluated the patient, The case was reviewed & discussed with the resident, I agree w/resident's findings & plan - HPI HPI: 03/16/19 23:01 The patient is a 63 year old female, with a significant past medical history of IDDM, HTN, who presents to the emergency department with, an abscess to the left vaginal trigone. As per patient, she was put on Clindamycin 7 days ago and was complaint with 4 days of the antibiotics but, stopped taking secondary to the onset of diarrhea. Patient reports the the ED today for worsening abscess with drainage. She denies any fevers or chills. Allergies: NKA - Physicial Exam PE: 03/16/19 23:01 GENERAL: Awake, alert, and fully oriented, in no acute distress HEAD: No signs of trauma EYES: PERRLA, EOMI, sclera anicteric, conjunctiva clear ENT: Auricles normal inspection, hearing grossly normal, nares patent, oropharynx clear without exudates. Moist mucosa NECK: Normal ROM, supple, no lymphadenopathy, JVD, or masses LUNGS: Breath sounds equal, clear to auscultation bilaterally. No wheezes, and no crackles HEART: Regular rate and rhythm, normal S1 and S2, no murmurs, rubs or gallops ABDOMEN: +Insulin pump and continuous glucose monitoring pump. Soft, nontender, normoactive bowel sounds. No guarding, no rebound. No masses EXTREMITIES: Normal range of motion, no edema. No clubbing or cyanosis. No cords, erythema, or tenderness PELVIC: +Left vaginal trigone necrotic abscess with thick pus emanating. NEUROLOGICAL: Cranial nerves II through XII grossly intact. Normal speech - Medical Decision Making 03/16/19 22:30 Pt has abscess on her trigone left of center with necrotic skin lesion 03/17/19 03:26 Pt has cellulitius and failed outpatient treatment and she will be admitted. Heart Score/ECG Review - ECG Intrepretation Rhythm: Regular Rhythm - Bellona Bellona: Normal - P and TN Delta Wave(s) Present: No WPW: No - ST and T Early Repolarization: No Non Specific ST-T Wave changes: Yes - ECG Impressions Normal ECG: Yes Non-specific ST Elevation: No Ischemic Changes: Yes (flat Ts inferior and anterior)
--- NOTE | 2019-03-17 00:52 | PN ---
Teaching Attending Note Name of Resident: Faye Castro ATTENDING PHYSICIAN STATEMENT I saw and evaluated the patient. I reviewed the resident's note and discussed the case with the resident. I agree with the resident's findings and plan as documented. SUBJECTIVE: Patient is a 63 year old woman with a PMH of IDDM (on insulin pump) and HTN, who presents to the ER with an abscess to the left vaginal trigone. As per patient, she was put on Clindamycin 7 days ago and was complaint with 4 days of the antibiotics but, stopped taking secondary to the onset of diarrhea. Patient reports the the ER today for worsening abscess with drainage. She denies any fevers, chills, nausea, vomiting, abdominal pain, abnormal vaginal discharge/ bleeding, dysuria, chest pain, SOB, headache or lightheadedness. Patient had I& D of the abscess performed in the ER and the sample sent for culture. OBJECTIVE: Alert Vital Signs Period Temp Pulse Resp BP Sys/Ro Pulse Ox Last 24 Hr 98.9 F 97 16 127/65 100 HEENT: No Jaundice, eye redness or discharge, PERRLA, EOMI. Normocephalic, atraumatic. External ears are normal and hearing is grossly intact. No nasal discharge. Neck: Supple, nontender. No palpable adenopathy or thyromegaly. No JVD Chest: Good effort. Clear to auscultation and percussion. Heart: Regular. No S3, rub or murmur Abdomen: Not distended, soft, nontender; insulin pump in place; no HSM. No rebound or guarding. Normal bowel sounds. Ext: Peripheral pulses intact. No leg edema. Skin: Warm and dry. No petechiae, rash or ecchymosis. Neuro: Alert. Oriented x3. CN 2-12 grossly intact. Sensation grossly intact in all four extremities and DTR are symmetric. Psych: Appropriate mood and affect. Good insight. Pelvic: Left labial abscess - drained and wound packed with gauze; area of surrounding erythema. Home Medications Medication Instructions Recorded Aspirin [ASA -] 81 mg PO DAILY 11/14/18 Atorvastatin Ca [Lipitor] 20 mg PO HS 11/14/18 Fexofenadine HCl [Mya Allergy] 180 mg PO PRN 11/14/18 Hydrochlorothiazide [Hctz -] 12.5 mg PO DAILY 11/14/18 Insulin Pump [Insulin Pump - (Nf)] 1 each NR ASDIR 11/14/18 Metoprolol Succinate [Toprol Xl] 25 mg PO DAILY 11/14/18 Multivitamin [One-Daily 1 each PO DAILY 11/14/18 Multi-Vitamin] Pramipexole Dihydrochloride 0.5 mg PO BID 11/14/18 [Mirapex -] Ramipril [Altace] 5 mg PO DAILY 11/14/18 Mupirocin Ointment [Bactroban 2% 1 applic TP BID #1 tube 03/09/19 Ointment -] Abnormal Lab Results 03/16/19 03/16/19 03/16/19 22:30 22:30 22:30 ESR 51 H Sodium 146 H Chloride 112 H Anion Gap 5 L BUN 28.3 H Random Glucose 47 L* C-Reactive Protein 0.4 H ASSESSMENT AND PLAN: 1. Left labial abscess - Failed outpatient clindamycin. Will treat with IV Vancomycin and Zosyn pending culture report and consult ID. Provide daily wound care. 2. DM Bout of hypoglycemia corrected in the ER with IV D50W. Patient refused to switch off her insulin pump. Will implement sliding scale insulin regimen. Provide comprehensive diabetes care with patient teaching and counseling about the importance of adherence to prescribed diabetes regimen, euglycemia, eye care and foot care. 3. Overweight Counseled on the risks associated with being overweight. Will provide patient all the necessary assistance, counseling and positive reinforcement to facilitate weight loss. Consult prosecuting attorney. 4. Hypertension - Restart suitable outpatient antihypertensive drugs when clinically appropriate. Revise regimen to ensure [id number] excellent BP control and mitochondrial disorders counselor patient on the injurious effects of uncontrolled hypertension. Nonpharmacologic measures to control hypertension like weight loss , salt restriction and exercise discussed. Importance of adherence to treatment regimen and attainment of normotension emphasized. 5. DVT prophylaxis - Lovenox 40 mg SQ q 24 hours. 6. Advance directives - Full code
[2019-03-17] MEDS ORDERED: VANCOMYCIN 1 GM in D5W (PRE-DOCKED) 1,000 MG/250 ML IVPB SCH (02:00)
--- NOTE | 2019-03-17 02:20 | HP ---
CHIEF COMPLAINT:abscess at the left labial area PCP:Dr. Ernandez HISTORY OF PRESENT ILLNESS: Patient is a 63 year old female with past medical history of IDDM, HTN, and HLD , presented to the ED due to worsening abscess at the left labial area for 1 week. Patient reported she noted the abscess started 1 weeks ago, where she came to the ED. She was sent home on Clindamycin and follow up with her BACKUP ADMINISTRATIVE COORDINATOR. Patient only took the Clindamycin for 4 days as this caused diarrhea, which resolved after she stopped taking the medication. Patient came to the ED today because of the worsening abscess. Patient denies fever, chills, headache, dizziness, chest pain, SOB, abdominal pain, diarrhea, urinary symptoms. At the ED, patient was noted to be hypoglycemic at 47. D50 1 amp was given and glucose improved to 74. Patient has the insulin pump and reports her baseline blood glucose is in the 80s. ER course was notable for: (1)I&D with packing done (2)Unasyn x1 given (3) Recent Travel:denies PAST MEDICAL HISTORY: IDDM HTN HLD PAST SURGICAL HISTORY: CHIO-BSO Social History: Smoking:denies Alcohol:denies Drugs: denies Family History: Mother and Father of old age in their 90's Allergies No Known Allergies Allergy (Verified 03/16/19 20:12) HOME MEDICATIONS: Home Medications Medication Instructions Recorded Aspirin [ASA -] 81 mg PO DAILY 11/14/18 Atorvastatin Ca [Lipitor] 20 mg PO HS 11/14/18 Fexofenadine HCl [Mya Allergy] 180 mg PO PRN 11/14/18 Hydrochlorothiazide [Hctz -] 12.5 mg PO DAILY 11/14/18 Insulin Pump [Insulin Pump - (Nf)] 1 each NR ASDIR 11/14/18 Metoprolol Succinate [Toprol Xl] 25 mg PO DAILY 11/14/18 Multivitamin [One-Daily 1 each PO DAILY 11/14/18 Multi-Vitamin] Pramipexole Dihydrochloride 0.5 mg PO BID 11/14/18 [Mirapex -] Ramipril [Altace] 5 mg PO DAILY 11/14/18 Mupirocin Ointment [Bactroban 2% 1 applic TP BID #1 tube 03/09/19 Ointment -] REVIEW OF SYSTEMS CONSTITUTIONAL: Absent: fever, chills, diaphoresis, generalized weakness, malaise, loss of appetite, weight change HEENT: Absent: rhinorrhea, nasal congestion, throat pain, throat swelling, difficulty swallowing, mouth swelling, ear pain, eye pain, visual changes CARDIOVASCULAR: Absent: chest pain, syncope, palpitations, irregular heart rate, lightheadedness , peripheral edema RESPIRATORY: Absent: cough, shortness of breath, dyspnea with exertion, orthopnea, wheezing, stridor, hemoptysis GASTROINTESTINAL: Absent: abdominal pain, abdominal distension, nausea, vomiting, diarrhea, constipation, melena, hematochezia GENITOURINARY: abscess at the left labial area Absent: dysuria, frequency, urgency, hesitancy, hematuria, flank pain, genital pain MUSCULOSKELETAL: Absent: myalgia, arthralgia, joint swelling, back pain, neck pain SKIN: Absent: rash, itching, pallor HEMATOLOGIC/IMMUNOLOGIC: Absent: easy bleeding, easy bruising, lymphadenopathy, frequent infections ENDOCRINE: Absent: unexplained weight gain, unexplained weight loss, heat intolerance, cold intolerance NEUROLOGIC: Absent: headache, focal weakness or paresthesias, dizziness, unsteady gait, seizure, mental status changes, bladder or bowel incontinence PSYCHIATRIC: Absent: anxiety, depression, suicidal or homicidal ideation, hallucinations. PHYSICAL EXAMINATION Vital Signs - 24 hr 03/16/19 20:09 Temperature 98.9 F Pulse Rate 97 H Respiratory 16 Rate Blood Pressure 127/65 O2 Sat by Pulse 100 Oximetry (%) GENERAL: Awake, alert, and fully oriented, in no acute distress. HEAD: Normal with no signs of trauma. EYES: PERRLA, EOMI, sclera anicteric, conjunctiva clear. EARS, NOSE, THROAT: Moist mucous membranes. NECK: Normal range of motion, supple without lymphadenopathy, JVD, or masses. LUNGS: Breath sounds equal, clear to auscultation bilaterally. HEART: Regular rate and rhythm, normal S1 and S2 without murmur, rub or gallop. ABDOMEN: Soft, nontender, not distended, normoactive bowel sounds. Insulin pump in LLQ. : +2cm open wound at the left upper labial area, with packed gauze, with skin necrosis and surrounding erythema. MUSCULOSKELETAL: Normal range of motion at all joints. UPPER EXTREMITIES: 2+ pulses, warm, well-perfused. No peripheral edema. LOWER EXTREMITIES: 2+ pulses, warm, well-perfused. No peripheral edema. NEUROLOGICAL: Cranial nerves II-XII intact. Normal speech. Normal gait. PSYCHIATRIC: Cooperative. Good eye contact. Appropriate mood and affect. SKIN: Warm, dry, normal turgor. Laboratory Results - last 24 hr 03/16/19 03/16/19 03/16/19 22:30 22:30 22:30 WBC 8.2 RBC 3.78 Hgb 11.6 Hct 34.7 D MCV 91.8 MCH 30.8 MCHC 33.6 RDW 14.4 Plt Count 340 D MPV 8.0 Absolute Neuts (auto) 5.8 Neutrophils % 70.4 Lymphocytes % 18.8 Monocytes % 7.8 Eosinophils % 2.5 D Basophils % 0.5 Nucleated RBC % 0 ESR Sodium 146 H Potassium 3.6 Chloride 112 H Carbon Dioxide 29 Anion Gap 5 L BUN 28.3 H Creatinine 0.6 Est GFR (CKD-EPI)AfAm 110.86 Est GFR (CKD-EPI)NonAf 95.65 POC Glucometer Random Glucose 47 L* Calcium 9.5 Total Bilirubin 0.6 AST 21 ALT 25 Alkaline Phosphatase 92 C-Reactive Protein 0.4 H Total Protein 7.1 Albumin 3.4 03/16/19 03/17/19 22:30 00:42 WBC RBC Hgb Hct MCV MCH MCHC RDW Plt Count MPV Absolute Neuts (auto) Neutrophils % Lymphocytes % Monocytes % Eosinophils % Basophils % Nucleated RBC % ESR 51 H Sodium Potassium Chloride Carbon Dioxide Anion Gap BUN Creatinine Est GFR (CKD-EPI)AfAm Est GFR (CKD-EPI)NonAf POC Glucometer 74 Random Glucose Calcium Total Bilirubin AST ALT Alkaline Phosphatase C-Reactive Protein Total Protein Albumin ASSESSMENT/PLAN: Patient is a 63 year old female with past medical history of IDDM, HTN, and HLD , presented to the ED due to worsening abscess at the left labial area for 1 week. #Left labial abscess -s/p I&D with packing, 10cc of fluid drained -Wound cultures pending -Unasyn given at the ED -Will start Vancomycin and Zosyn as patient is diabetic and has failed outpatient therapy -ID (Dr. Hawley) consulted. #IDDM -Patient adamantly refuses to take off insulin pump -BGM ACHS #HTN -Continue Ramipril, Metoprolol #HLD -Continue Lipitor 20mg daily #Prophylaxis -Lovenox 40mg sq daily #Disposition -full code -admit to med surg Visit type - Emergency Visit Emergency Visit: Yes ED Registration Date: 03/17/19 Care time: The patient presented to the Emergency Department on the above date and was hospitalized for further evaluation of their emergent condition. - New Patient This patient is new to me today: Yes Date on this admission: 03/17/19 - Critical Care Critical Care patient: No ATTENDING PHYSICIAN STATEMENT I saw and evaluated the patient. I reviewed the resident's note and discussed the case with the resident. I agree with the resident's findings and plan as documented. SUBJECTIVE: OBJECTIVE: ASSESSMENT AND PLAN:
[2019-03-17] MEDS ORDERED: PIPERACILLIN/TAZOB 3.375 GM 3.375 GM/50 ML BAG IVPB ONE (02:26)
[2019-03-17] MEDS ORDERED: VANCOMYCIN 1 GRAM (PRE-DOCKED) 1,000 MG/250 ML BAG IVPB ONE (02:26)
[2019-03-17] MEDS: PIPERACILLIN/TAZOB 3.375 GM 3.375 GM in DEXTROSE 5%-WATER - 50 ML IVPB SCH ×3 (02:50→17:45)
[2019-03-17 02:52] LABS: PH,URINE 6.5 (5.0-8.0); URINE APPEARANCE TURBID; URINE BILIRUBIN NEGATIVE (NEGATIVE); URINE COLOR YELLOW; URINE GLUCOSE (UA) 3+ (NEGATIVE); URINE KETONE TRACE (NEGATIVE); URINE LEUK ESTERASE 3+ (NEGATIVE); URINE NITRITE NEGATIVE (NEGATIVE); URINE PROTEIN TRACE (NEGATIVE)
[2019-03-17 04:49] VITALS: BMI 26.5
[2019-03-17 08:48] LABS: HEMATOCRIT 35.9 % (32.4-45.2); HEMOGLOBIN 11.9 GM/dL (10.7-15.3); MCH 30.6 pg (25.7-33.7); MCHC 33.1 g/dl (32.0-36.0); MEAN CELL VOLUME 92.3 fl (80-96); MEAN PLT VOLUME 8.1 fl (7.5-11.1); PLATELET COUNT 338 K/MM3 (134-434); RBC 3.89 M/mm3 (3.60-5.2); RDW 14.5 % (11.6-15.6); WHITE BLOOD COUNT 7.7 K/mm3 (4.0-10.0)
[2019-03-17 09:24] LABS: ALBUMIN 3.3 g/dl (3.4-5.0); BILIRUBIN,TOTAL 0.9 mg/dL (0.2-1); BLOOD UREA NITROGEN 20.8 mg/dL (7-18); CALCIUM 9.1 mg/dL (8.5-10.1); CREATININE 0.6 mg/dL (0.55-1.3); MAGNESIUM 2.5 mg/dL (1.8-2.4); PHOSPHOROUS 3.4 mg/dL (2.5-4.9); POTASSIUM 4.3 mmol/L (3.5-5.1); TOT PROT 6.8 g/dl (6.4-8.2)
[2019-03-17] MEDS ORDERED: PIPERACILLIN/TAZOBACTAM 3.375 GM VIAL IVPB ONE ×2 (09:41→17:28)
[2019-03-17] MEDS ORDERED: PT OWN MED DRAWER 7, Y5N ONE ×3 (09:41→21:45)
[2019-03-17] MEDS ORDERED: DEXTROSE 5%-WATER - 50 ML IVPB ONE ×2 (09:41→17:29)
[2019-03-17] MEDS: ENOXAPARIN NA (PORCINE) 40 MG/0.4 ML DISP.SYRIN SQ SCH ×2 (09:50→09:58)
--- NOTE | 2019-03-17 10:08 | PN ---
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 [employer] admitted with abscess, left mons pubis no fevers developed a red bump on the left side of her monspubis about 7 to 10 days ago seen in 03/09 not ready to be drained started on clindamycin and advised gyne f/u she self d/sukhjinder clindamycin due to diarrhea after 4 days due to diarrhea, didnot seek gyne f/u noted more eythema to the area, yesterday noted some drainage and came to ED no prior history of abscesses no history of MRSA on PE has erythema and induration with a scab left mons pubis (above the labia) +packing agree with gyne evaluation cannot r/o MRSA, so will continue vancomycin, ?GNR given location and DM- continue zosyn IDDM will f/u cultures Problem List - Problems (1) Acute abscess of female pelvis Code(s): N73.0 - ACUTE PARAMETRITIS AND PELVIC CELLULITIS (2) DM type 1 (diabetes mellitus, type 1) Code(s): E10.9 - TYPE 1 DIABETES MELLITUS WITHOUT COMPLICATIONS
[2019-03-17 11:26] LABS: ANISOCYTOSIS 0; MACROCYTOSIS 0; PLATELET ESTIMATE NORMAL
--- NOTE | 2019-03-17 11:32 | EKG ---
Test Reason : Blood Pressure : / mmHG Vent. Rate : 084 BPM Atrial Rate : 084 BPM P-R Int : 138 ms QRS Dur : 072 ms QT Int : 402 ms P-R-T Axes : 063 017 030 degrees QTc Int : 475 ms NORMAL SINUS RHYTHM LOW VOLTAGE QRS BORDERLINE ECG WHEN COMPARED WITH ECG OF 14-NOV-2018 08:39, NO SIGNIFICANT CHANGE WAS FOUND Confirmed by TAURUS CARO MD ([id number]) on 03/17/2019 11:31:44 AM Referred By: Confirmed By:TAURUS CARO MD
--- NOTE | 2019-03-17 13:27 | PN ---
Physical Exam: SUBJECTIVE: Patient seen and examined, no groin pain currently, denies fevers/ chills. OBJECTIVE: Vital Signs Period Temp Pulse Resp BP Sys/Ro Pulse Ox Last 24 Hr 97.5 F-99.1 F 85-113 16-18 121-137/55-78 95-100 Intake & Output 03/14/19 03/15/19 03/16/19 03/17/19 23:59 23:59 23:59 23:59 Weight 165 lb 149 lb 11.2 oz GENERAL: ambulating in hallway in no acute distress neck: soft, supple Chest: CTAB, no rales or wheezing Abdomen:Soft, obese, NT Genital: 3 cm indurated area with central packing, surrounding erythema, on left mons pubis, minimally tender Extremities: no edema psych: pleasant, co-operative Laboratory Results - last 24 hr 03/16/19 03/16/19 03/16/19 22:30 22:30 22:30 WBC 8.2 RBC 3.78 Hgb 11.6 Hct 34.7 D MCV 91.8 MCH 30.8 MCHC 33.6 RDW 14.4 Plt Count 340 D MPV 8.0 Absolute Neuts (auto) 5.8 Neutrophils % 70.4 Lymphocytes % 18.8 Monocytes % 7.8 Eosinophils % 2.5 D Basophils % 0.5 Nucleated RBC % 0 ESR Sodium 146 H Potassium 3.6 Chloride 112 H Carbon Dioxide 29 Anion Gap 5 L BUN 28.3 H Creatinine 0.6 Est GFR (CKD-EPI)AfAm 110.86 Est GFR (CKD-EPI)NonAf 95.65 POC Glucometer Random Glucose 47 L* Calcium 9.5 Phosphorus Magnesium Total Bilirubin 0.6 AST 21 ALT 25 Alkaline Phosphatase 92 C-Reactive Protein 0.4 H Total Protein 7.1 Albumin 3.4 Urine Color Urine Appearance Urine pH Ur Specific [place] Urine Protein Urine Glucose (UA) Urine Ketones Urine Blood Urine Nitrite Urine Bilirubin Urine Urobilinogen Ur Leukocyte Esterase 03/16/19 03/17/19 03/17/19 22:30 00:42 02:25 WBC RBC Hgb Hct MCV MCH MCHC RDW Plt Count MPV Absolute Neuts (auto) Neutrophils % Lymphocytes % Monocytes % Eosinophils % Basophils % Nucleated RBC % ESR 51 H Sodium Potassium Chloride Carbon Dioxide Anion Gap BUN Creatinine Est GFR (CKD-EPI)AfAm Est GFR (CKD-EPI)NonAf POC Glucometer 74 Random Glucose Calcium Phosphorus Magnesium Total Bilirubin AST ALT Alkaline Phosphatase C-Reactive Protein Total Protein Albumin Urine Color Yellow Urine Appearance Turbid Urine pH 6.5 Ur Specific [place] 1.029 Urine Protein Trace Urine Glucose (UA) 3+ H Urine Ketones Trace H Urine Blood Negative Urine Nitrite Negative Urine Bilirubin Negative Urine Urobilinogen 1.0 Ur Leukocyte Esterase 3+ H 03/17/19 03/17/19 03/17/19 07:04 07:18 07:18 WBC 7.7 RBC 3.89 Hgb 11.9 Hct 35.9 MCV 92.3 MCH 30.6 MCHC 33.1 RDW 14.5 Plt Count 338 MPV 8.1 Absolute Neuts (auto) 2.1 Neutrophils % No Result Required. Lymphocytes % No Result Required. Monocytes % Eosinophils % Basophils % Nucleated RBC % 0 ESR Sodium 143 Potassium 4.3 Chloride 108 H Carbon Dioxide 31 Anion Gap 4 L BUN 20.8 H Creatinine 0.6 Est GFR (CKD-EPI)AfAm 110.86 Est GFR (CKD-EPI)NonAf 95.65 POC Glucometer 171 Random Glucose 147 H Calcium 9.1 Phosphorus 3.4 Magnesium 2.5 H Total Bilirubin 0.9 AST 20 ALT 24 Alkaline Phosphatase 88 C-Reactive Protein Total Protein 6.8 Albumin 3.3 L Urine Color Urine Appearance Urine pH Ur Specific [place] Urine Protein Urine Glucose (UA) Urine Ketones Urine Blood Urine Nitrite Urine Bilirubin Urine Urobilinogen Ur Leukocyte Esterase 03/17/19 11:30 WBC RBC Hgb Hct MCV MCH MCHC RDW Plt Count MPV Absolute Neuts (auto) Neutrophils % Lymphocytes % Monocytes % Eosinophils % Basophils % Nucleated RBC % ESR Sodium Potassium Chloride Carbon Dioxide Anion Gap BUN Creatinine Est GFR (CKD-EPI)AfAm Est GFR (CKD-EPI)NonAf POC Glucometer 79 Random Glucose Calcium Phosphorus Magnesium Total Bilirubin AST ALT Alkaline Phosphatase C-Reactive Protein Total Protein Albumin Urine Color Urine Appearance Urine pH Ur Specific [place] Urine Protein Urine Glucose (UA) Urine Ketones Urine Blood Urine Nitrite Urine Bilirubin Urine Urobilinogen Ur Leukocyte Esterase Active Medications Home Medications Medication Instructions Recorded Aspirin [ASA -] 81 mg PO DAILY 11/14/18 Atorvastatin Ca [Lipitor] 20 mg PO HS 11/14/18 Fexofenadine HCl [Mya Allergy] 180 mg PO PRN 11/14/18 Hydrochlorothiazide [Hctz -] 12.5 mg PO DAILY 11/14/18 Insulin Pump [Insulin Pump - (Nf)] 1 each NR ASDIR 11/14/18 Metoprolol Succinate [Toprol Xl] 25 mg PO DAILY 11/14/18 Multivitamin [One-Daily 1 each PO DAILY 11/14/18 Multi-Vitamin] Pramipexole Dihydrochloride 0.5 mg PO BID 11/14/18 [Mirapex -] Ramipril [Altace] 5 mg PO DAILY 11/14/18 Mupirocin Ointment [Bactroban 2% 1 applic TP BID #1 tube 03/09/19 Ointment -] Generic Name Dose Route Start Last Admin Trade Name Freq PRN Reason Stop Dose Admin Enoxaparin Sodium 40 mg 03/17/19 10:00 03/17/19 09:58 Lovenox - SQ Not Given DAILY DANIELLE Piperacillin Sod/Tazobactam 50 mls @ 100 mls/hr 03/17/19 18:00 Sod 3.375 gm/ Dextrose IVPB Q8H-IV DANIELLE Protocol Piperacillin Sod/Tazobactam 50 mls @ 100 mls/hr 03/17/19 02:00 03/17/19 09:48 Sod 3.375 gm/ Dextrose IVPB 03/17/19 15:00 100 mls/hr Q8H-IV DANIELLE Administration Vancomycin HCl 1,000 mg in 250 mls @ 200 mls/hr 03/18/19 02:00 Vancomycin (Pre-Docked) IVPB Q24H DANIELLE Protocol Wound cx pending ASSESSMENT/PLAN: 63 yof with Type I DM since age 5, HTN, HLD admitted with left mons pubis abscess -Left Mons Pubis Abscess -Type I DM on insulin pump -HTN -HLD Plan: s/p I&D in ED. Surgery/Carbon Brush Maker consult. ID input noted. Zosyn/vancomycin. Follow up wound cx. Patient has her own insulin pump/glucometer device inserted. With regular BGM monitoring and insulin basal and bolus delivery. Prefer to continue with her home insulin regimen. Will continue BGM AC and HS and monitor for now. resume home statin/toprol XL. Hold HAL/ASA for now DVTPPX lovenox Dispo pending clinical improvement and need for surgical intervention Plan discussed with patient and nursing in detail, all questions answered. Visit type - Emergency Visit Emergency Visit: Yes ED Registration Date: 03/17/19 Care time: The patient presented to the Emergency Department on the above date and was hospitalized for further evaluation of their emergent condition. - New Patient This patient is new to me today: Yes Date on this admission: 03/17/19 - Critical Care Critical Care patient: No - Discharge Referral Referred to [facility] Med P.C.: No
[2019-03-17] MEDS ORDERED: INSULIN REGULAR HUMAN 100 UNITS/ML *VIAL SQ SCH (13:30)
--- NOTE | 2019-03-17 13:44 | CONS ---
DATE OF CONSULTATION: 03/17/2019 REQUESTED BY: Hospitalist Service This is a 63-year-old woman with insulin-dependent diabetes for the last 58 years. She has an insulin pump and she has a history of hypertension. She presented 1 week ago to the ER complaining of a red bump on her left mons pubis. It was felt to be probably an early abscess and was indurated. She was discharged on clindamycin and warm soaks, which she did. After 3 to 4 days of clindamycin, she developed diarrhea and self-discontinued. She was to see gynecology, but had not scheduled an appointment. She had no fevers or chills. She noted that the area was getting worse, she started having a little drainage with continued redness, and she presented to the ER. She had an I and D of the abscess done in the ER and it was sent for culture and Gram stain. She denies any fevers, chills, nausea, vomiting, diarrhea, dysuria. PAST MEDICAL HISTORY: Notable for diabetes, hypertension, hyperlipidemia. SURGICAL HISTORY: Notable for a TAHBSO. SOCIAL HISTORY: There is no history of cigarette, alcohol, or substance use. She lives alone and she has 6 dogs. 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. FAMILY HISTORY: Father and mother from old age in their 90s. She has no known drug allergies. MEDICATIONS: Aspirin, Lipitor, hydrochlorothiazide, Mya. She has an insulin pump. Toprol-XL, multivitamins, Mirapex, Altace, and she had been given clindamycin and mupirocin cream. REVIEW OF SYSTEMS: There are no fevers, chills. No shortness of breath, no cough, no chest pain, no abdominal pain. PHYSICAL EXAMINATION: General: She is a very pleasant woman in no acute distress. Vital Signs: Temperature is 98.4. She has had no fever. Pulse is 88, blood pressure 130/78, respiratory rate of 18. HEENT: She is normocephalic. Her eyes are anicteric. Neck: Supple. Lungs: Clear to auscultation. Heart: Regular rate and rhythm. Abdomen: Soft, nontender. Extremities: Without edema. White count is 7.7, hemoglobin is 11.9, platelets are 338. BUN is 20, creatinine is 0.6. LFTs are normal. UA has 3+ leukocytes and cultures are pending. She had a chest x-ray that showed no acute chest pathology. SUMMARY: This is an otherwise healthy 63-year-old woman with longstanding history of insulin-dependent diabetes with insulin pump who is admitted with an acute abscess of her mons pubis on the side. 1. Cannot rule out methicillin-resistant Staphylococcus aureus in this setting, so would agree with vancomycin at this time. As well, given the location and her diabetes, I think it would be reasonable to give her gram-negative coverage with piperacillin, tazobactam. 2. History of insulin-dependent diabetes. Further recommendations to follow. Juan [id number]
[2019-03-17] MEDS: metoPROLOL SUCCINATE 25 MG TAB.SR.24H (FP) PO SCH (14:29)
--- NOTE | 2019-03-17 17:07 | CON.OBG ---
Consult Consult Specialty:: [employer] Reason for Consultation:: Vulva mass - History of Present Illness Chief Complaint: Vulva mass History of Present Illness: Patient is a 63 year old female with past medical history of IDDM, HTN, and HLD , presented to the ED due to worsening abscess at the left labial area for 1 week. Patient reported she noted the abscess started 1 weeks ago, where she came to the ED. She was sent home on Clindamycin and follow up with her [employer]. Patient only took the Clindamycin for 4 days as this caused diarrhea, which resolved after she stopped taking the medication. Patient came to the ED today because of the worsening abscess. Patient denies fever, chills, headache, dizziness, chest pain, SOB, abdominal pain, diarrhea, urinary symptoms. At the ED, patient was noted to be hypoglycemic at 47. D50 1 amp was given and glucose improved to 74. Patient has the insulin pump and reports her baseline blood glucose is in the 80s. [employer] consulted. I came to see patient, she admits to prior hysterectomy. She has not seen Dr. Woods ( her HEAD CLE[employer] ) in 15 yrs. She had an I&D done in ER. Abscess was packed. She's receiving IV antibiotic. - History Source History Provided By: Patient Limitations to Obtaining History: No Limitations - Past Medical History ...: No - Past Surgical History Past Surgical History: Yes: Hysterectomy - Alcohol/Substance Use Hx Alcohol Use: No - Smoking History Smoking history: Never smoked Have you smoked in the past 12 months: No Home Medications - Allergies Allergies/Adverse Reactions: Allergies Allergy/AdvReac Type Severity Reaction Status Date / Time No Known Allergies Allergy Verified 03/16/19 20:12 - Home Medications Home Medications: Ambulatory Orders Aspirin [ASA -] 81 mg PO DAILY 11/14/18 Atorvastatin Ca [Lipitor] 20 mg PO HS 11/14/18 Fexofenadine HCl [Mya Allergy] 180 mg PO PRN 11/14/18 Hydrochlorothiazide [Hctz -] 12.5 mg PO DAILY 11/14/18 Insulin Pump [Insulin Pump - (Nf)] 1 each NR ASDIR 11/14/18 Metoprolol Succinate [Toprol Xl] 25 mg PO DAILY 11/14/18 Multivitamin [One-Daily Multi-Vitamin] 1 each PO DAILY 11/14/18 Pramipexole Dihydrochloride [Mirapex -] 0.5 mg PO BID 11/14/18 Ramipril [Altace] 5 mg PO DAILY 11/14/18 Mupirocin Ointment [Bactroban 2% Ointment -] 1 applic TP BID #1 tube 03/09/19 Review of Systems - Review of Systems Constitutional: reports: Chills. denies: Fever Eyes: reports: No Symptoms HENT: reports: No Symptoms Neck: reports: No Symptoms Cardiovascular: reports: No Symptoms Respiratory: reports: No Symptoms Gastrointestinal: reports: No Symptoms Genitourinary: reports: Other (Pubic abscess) Breasts: reports: No Symptoms Reported Musculoskeletal: reports: No Symptoms Neurological: reports: No Symptoms Hematology/Lymphatic: reports: No Symptoms Psychiatric: reports: No Symptoms Pain Intensity: 3 Physical Exam-[employer] Vital Signs: Vital Signs Temperature 99.1 F 03/17/19 09:05 Pulse Rate 101 H 03/17/19 14:30 Respiratory Rate 18 03/17/19 09:05 Blood Pressure 142/82 03/17/19 14:30 O2 Sat by Pulse Oximetry (%) 98 03/17/19 04:41 Constitutional: Yes: Calm Eyes: Yes: Conjunctiva Clear HENT: Yes: Atraumatic Neck: Yes: Supple Cardiovascular: Yes: Regular Rate and Rhythm Respiratory: Yes: Regular Gastrointestinal: Yes: Normal Bowel Sounds Pelvis: Yes: Other (Drained pubic abscess) External Genitalia: Yes: Lesion Extremities: Yes: WNL Neurological: Yes: Alert, Oriented ...Motor Strength: WNL Psychiatric: Yes: Alert, Oriented Labs: CBC, BMP 03/17/19 07:18 03/17/19 07:18 Assessment/Plan Pubic abscess S/P I&D of pubic abscess Dressing change ( will need daily dressing change as outpatient along with PO antibiotic ) IDDM HTN HLD F/U with Dr. Woods ( Pt's [employer] ) as outpatient
[2019-03-17] MEDS ORDERED: ATORVASTATIN CA 20 MG TABLET (FP) PO SCH (22:00)
[2019-03-17] MEDS ORDERED: ATORVASTATIN CA 10 MG TABLET (FP) PO SCH (22:00)
[2019-03-17] MEDS: PRAMIPEXOLE DIHYDROCHLORIDE 0.5 MG TABLET PO SCH (22:11)
[2019-03-17] MEDS: VANCOMYCIN 1 GM in D5W (PRE-DOCKED) 1,000 MG/250 ML IVPB SCH (23:01)
[2019-03-18] MEDS ORDERED: PIPERACILLIN/TAZOBACTAM 3.375 GM VIAL IVPB ONE ×2 (01:09→11:36)
[2019-03-18] MEDS ORDERED: DEXTROSE 5%-WATER - 50 ML IVPB ONE ×2 (01:10→11:37)
[2019-03-18] MEDS: PIPERACILLIN/TAZOB 3.375 GM 3.375 GM in DEXTROSE 5%-WATER - 50 ML IVPB SCH ×2 (01:24→11:44)
[2019-03-18] MEDS ORDERED: VANCOMYCIN 1 GRAM (PRE-DOCKED) 1,000 MG/250 ML BAG IVPB SCH (02:00)
[2019-03-18 07:14] LABS: BLOOD UREA NITROGEN 16.9 mg/dL (7-18); CALCIUM 9.3 mg/dL (8.5-10.1); CREATININE 0.7 mg/dL (0.55-1.3); MAGNESIUM 2.4 mg/dL (1.8-2.4); PHOSPHOROUS 3.7 mg/dL (2.5-4.9); POTASSIUM 4.3 mmol/L (3.5-5.1)
[2019-03-18 07:25] LABS: BASO % 0.9 % (0-2.0); EOS % 4.6 % (0-4.5); HEMATOCRIT 37.5 % (32.4-45.2); HEMOGLOBIN 12.7 GM/dL (10.7-15.3); LYMPH % 20.3 % (8-40); MCHC 33.9 g/dl (32.0-36.0); MEAN CELL VOLUME 91.4 fl (80-96); MEAN PLT VOLUME 8.4 fl (7.5-11.1); MONO % 6.8 % (3.8-10.2); NEUT % 67.4 % (42.8-82.8); PLATELET COUNT 344 K/MM3 (134-434); RDW 14.2 % (11.6-15.6); WHITE BLOOD COUNT 6.3 K/mm3 (4.0-10.0)
[2019-03-18] MEDS ORDERED: MULTIVITAMINS (DAILY MVI) TABLET (FP) PO SCH (10:00)
[2019-03-18] MEDS ORDERED: PT OWN MED DRAWER 7, Y5N ONE (11:20)
[2019-03-18] MEDS: metoPROLOL SUCCINATE 25 MG TAB.SR.24H (FP) PO SCH (11:29)
[2019-03-18] MEDS: ENOXAPARIN NA (PORCINE) 40 MG/0.4 ML DISP.SYRIN SQ SCH ×2 (11:29→12:07)
[2019-03-18] MEDS: PRAMIPEXOLE DIHYDROCHLORIDE 0.5 MG TABLET PO SCH (11:30)
--- NOTE | 2019-03-18 11:31 | PN ---
Progress Note (short form) - Note Progress Note: no complaints still with pain at pubic abscess site Vital Signs Period Temp Pulse Resp BP Sys/Ro Pulse Ox Last 24 Hr 98.2 F-98.4 F 77-101 18-20 135-148/73-82 98 cor-rrr lungs clear packing removed 1-2 cc of thick purulent drainage expressed from the abscess CBC, BMP 03/18/19 06:10 03/18/19 06:10 Microbiology 03/16/19 22:30 Abscess Gram Stain - Final 03/16/19 22:30 Abscess Wound Culture - Preliminary Lactose Fermenting Neg Bacilli Lactose Fermenting Neg Bacilli#2 Staphylococcus Coagulase Neg 03/17/19 00:45 Perineal Gram Stain - Final 03/17/19 00:45 Perineal Wound Culture - Preliminary NO GROWTH OBTAINED AFTER 24 HOURS INCUBATION, REINCUBATED. 03/17/19 02:25 Urine - Urine Clean Catch Urine Culture - Final NO GROWTH OBTAINED a/p pubic abscess-still with drainage IDDM will f/u cultures given diabetes and continue purulent drainage will continue if antibiotics and wound care in hospital and f/u cultures in am Problem List - Problems (1) Acute abscess of female pelvis Code(s): N73.0 - ACUTE PARAMETRITIS AND PELVIC CELLULITIS (2) DM type 1 (diabetes mellitus, type 1) Code(s): E10.9 - TYPE 1 DIABETES MELLITUS WITHOUT COMPLICATIONS
--- NOTE | 2019-03-18 13:41 | PN ---
Teaching Attending Note Name of Resident: Jett Sadler ATTENDING PHYSICIAN STATEMENT I saw and evaluated the patient. I reviewed the resident's note and discussed the case with the resident. I agree with the resident's findings and plan as documented with exceptions below. SUBJECTIVE: Patient seen and examined. no new pain or concerns. left mons pubis wound draining. No fevers/chills or concerns. OBJECTIVE: Vital Signs Period Temp Pulse Resp BP Sys/Ro Pulse Ox Last 24 Hr 98.2 F-98.4 F 77-101 18-20 135-148/73-82 98 Intake & Output 03/15/19 03/16/19 03/17/19 03/18/19 23:59 23:59 23:59 23:59 Intake Total 900 400 Balance 900 400 Weight 165 lb 149 lb 11.2 oz GENERAL: ambulating in hallway in no acute distress neck: soft, supple Chest: CTAB, no rales or wheezing Abdomen:Soft, obese, NT Genital: 3 cm indurated area with central packing sozaked, surrounding erythema , on left mons pubis, minimally tender Extremities: no edema psych: pleasant, co-operative Home Medications Medication Instructions Recorded Aspirin [ASA -] 81 mg PO DAILY 11/14/18 Atorvastatin Ca [Lipitor] 20 mg PO HS 11/14/18 Fexofenadine HCl [Mya Allergy] 180 mg PO PRN 11/14/18 Hydrochlorothiazide [Hctz -] 12.5 mg PO DAILY 11/14/18 Insulin Pump [Insulin Pump - (Nf)] 1 each NR ASDIR 11/14/18 Metoprolol Succinate [Toprol Xl] 25 mg PO DAILY 11/14/18 Multivitamin [One-Daily 1 each PO DAILY 11/14/18 Multi-Vitamin] Pramipexole Dihydrochloride 0.5 mg PO BID 11/14/18 [Mirapex -] Ramipril [Altace] 5 mg PO DAILY 11/14/18 Mupirocin Ointment [Bactroban 2% 1 applic TP BID #1 tube 03/09/19 Ointment -] Active Medications Atorvastatin Calcium (Lipitor -) 20 mg PO HS REPLACED BY [facility] Last Admin: 03/17/19 22:11 Dose: 20 mg Enoxaparin Sodium (Lovenox -) 40 mg SQ DAILY REPLACED BY [facility] Last Admin: 03/18/19 12:07 Dose: Not Given Piperacillin Sod/Tazobactam (Sod 3.375 gm/ Dextrose) 50 mls @ 100 mls/hr IVPB Q8H-IV DANIELLE; Protocol Last Admin: 03/18/19 11:44 Dose: 100 mls/hr Vancomycin HCl (Vancomycin (Pre-Docked)) 1,000 mg in 250 mls @ 200 mls/hr IVPB Q24H DANIELLE; Protocol Last Admin: 03/18/19 02:12 Dose: 200 mls/hr Metoprolol Succinate (Toprol Xl -) 25 mg PO DAILY DANIELLE Last Admin: 03/18/19 11:29 Dose: 25 mg Multivitamins/Minerals/Vitamin C (Tab-A-Vit -) 1 tab PO DAILY DANIELLE Last Admin: 03/18/19 11:29 Dose: 1 tab Pramipexole Dihydrochloride (Mirapex -) 0.5 mg PO BID DANIELLE Last Admin: 03/18/19 11:30 Dose: 0.5 mg Laboratory Results - last 24 hr 03/17/19 03/17/19 03/17/19 07:18 16:59 22:58 WBC RBC Hgb Hct MCV MCH MCHC RDW Plt Count MPV Absolute Neuts (auto) Neutrophils % Neutrophils % (Manual) 71.0 Band Neutrophils % 0.0 Lymphocytes % Lymphocytes % (Manual) 20.0 Monocytes % Monocytes % (Manual) 6 Eosinophils % Eosinophils % (Manual) 1.0 Basophils % Basophils % (Manual) 1.0 Myelocytes % (Man) 0 Promyelocytes % (Man) 0 Blast Cells % (Manual) 0 Nucleated RBC % Metamyelocytes 0 Hypochromia 0 Platelet Estimate Normal Polychromasia 0 Poikilocytosis 0 Anisocytosis 0 Microcytosis 0 Macrocytosis 0 Sodium Potassium Chloride Carbon Dioxide Anion Gap BUN Creatinine Est GFR (CKD-EPI)AfAm Est GFR (CKD-EPI)NonAf POC Glucometer 372 191 Random Glucose Calcium Phosphorus Magnesium 03/18/19 03/18/19 03/18/19 06:02 06:10 06:10 WBC 6.3 RBC 4.10 Hgb 12.7 Hct 37.5 MCV 91.4 MCH 31.0 MCHC 33.9 RDW 14.2 Plt Count 344 MPV 8.4 Absolute Neuts (auto) 4.2 Neutrophils % 67.4 Neutrophils % (Manual) Band Neutrophils % Lymphocytes % 20.3 Lymphocytes % (Manual) Monocytes % 6.8 Monocytes % (Manual) Eosinophils % 4.6 H D Eosinophils % (Manual) Basophils % 0.9 Basophils % (Manual) Myelocytes % (Man) Promyelocytes % (Man) Blast Cells % (Manual) Nucleated RBC % 0 Metamyelocytes Hypochromia Platelet Estimate Polychromasia Poikilocytosis Anisocytosis Microcytosis Macrocytosis Sodium 141 Potassium 4.3 Chloride 109 H Carbon Dioxide 27 Anion Gap 5 L BUN 16.9 Creatinine 0.7 Est GFR (CKD-EPI)AfAm 105.38 Est GFR (CKD-EPI)NonAf 90.92 POC Glucometer 175 Random Glucose 193 H Calcium 9.3 Phosphorus 3.7 Magnesium 2.4 03/18/19 08:54 WBC RBC Hgb Hct MCV MCH MCHC RDW Plt Count MPV Absolute Neuts (auto) Neutrophils % Neutrophils % (Manual) Band Neutrophils % Lymphocytes % Lymphocytes % (Manual) Monocytes % Monocytes % (Manual) Eosinophils % Eosinophils % (Manual) Basophils % Basophils % (Manual) Myelocytes % (Man) Promyelocytes % (Man) Blast Cells % (Manual) Nucleated RBC % Metamyelocytes Hypochromia Platelet Estimate Polychromasia Poikilocytosis Anisocytosis Microcytosis Macrocytosis Sodium Potassium Chloride Carbon Dioxide Anion Gap BUN Creatinine Est GFR (CKD-EPI)AfAm Est GFR (CKD-EPI)NonAf POC Glucometer 243 Random Glucose Calcium Phosphorus Magnesium Microbiology 03/16/19 22:30 Abscess Gram Stain - Final 03/16/19 22:30 Abscess Wound Culture - Preliminary Lactose Fermenting Neg Bacilli Lactose Fermenting Neg Bacilli#2 Staphylococcus Coagulase Neg 03/17/19 00:45 Perineal Gram Stain - Final 03/17/19 00:45 Perineal Wound Culture - Preliminary NO GROWTH OBTAINED AFTER 24 HOURS INCUBATION, REINCUBATED. 03/17/19 02:25 Urine - Urine Clean Catch Urine Culture - Final NO GROWTH OBTAINED ASSESSMENT AND PLAN: 63 yof with Type I DM since age 5, HTN, HLD admitted with left mons pubis abscess -Left Mons Pubis Abscess s/p I&D -Type I DM on insulin pump -HTN -HLD Plan: s/p I&D in ED. finish mender input noted. Discussed with Dr. Chauhan, daily packing change with wet to dry dressing, discussed with nursing, to provide wound care teaching to patient. Discussed with social work, plan for home VNS. ID input noted, follow up wound cx. Zosyn/vancomycin day 2. Patient has her own insulin pump/glucometer device inserted. With regular BGM monitoring and insulin basal and bolus delivery. Prefers to continue with her home insulin regimen. Will continue BGM AC and HS and monitor for now. Continue statin/toprol XL. Resume Ramipril. Hold ASA for now. DVTPPX lovenox Dispo pending clinical improvement and need for surgical intervention Plan discussed with patient and nursing in detail, all questions answered.
[2019-03-18] MEDS ORDERED: RAMIPRIL 5 MG CAPSULE (FP) PO SCH (14:00)
[2019-03-18 15:47] VITALS: BP 109/80; TEMP 98.6
[2019-03-18 15:54] VITALS: PULSE 90
--- NOTE | 2019-03-18 16:09 | DS ---
Physical Exam: SUBJECTIVE: Patient seen and examined feeling better asking to go home for personal reason (feed her dog and bring battaery for sugar monitor device ) want to leave AMA . OBJECTIVE: Vital Signs Period Temp Pulse Resp BP Sys/Ro Pulse Ox Last 24 Hr 98.2 F-98.8 F 77-104 18-20 109-148/73-85 98-98 PHYSICAL EXAM GENERAL: AAOx3 in NAD HEAD: NC/AT EYES: EOMI, Conjunctiva clear, sclera anicteric ENT: moist mucous membrane NECK: Supple, no JVD LUNGS: CTA B/L, no crackles no wheezing no accessory muscle use. HEART: RRR, NSR, normal s1, s2, murmur no M/R/G ABDOMEN: Soft, ND, NT, +BS 4 Q, no CVA Tenderness, left mons pubic wound packed and cover with gauze. LOWER EXTREMITIES: no edema, +2DP pulse, NEUROLOGICAL: No focal deficit. Normal speech. gait not observed. PSYCHIATRIC: Cooperative. Good eye contact. Appropriate mood and affect. SKIN: Warm, dry, LABS Laboratory Results - last 24 hr 03/17/19 03/17/19 03/18/19 16:59 22:58 06:02 WBC RBC Hgb Hct MCV MCH MCHC RDW Plt Count MPV Absolute Neuts (auto) Neutrophils % Lymphocytes % Monocytes % Eosinophils % Basophils % Nucleated RBC % Sodium Potassium Chloride Carbon Dioxide Anion Gap BUN Creatinine Est GFR (CKD-EPI)AfAm Est GFR (CKD-EPI)NonAf POC Glucometer 372 191 175 Random Glucose Calcium Phosphorus Magnesium 03/18/19 03/18/19 03/18/19 06:10 06:10 08:54 WBC 6.3 RBC 4.10 Hgb 12.7 Hct 37.5 MCV 91.4 MCH 31.0 MCHC 33.9 RDW 14.2 Plt Count 344 MPV 8.4 Absolute Neuts (auto) 4.2 Neutrophils % 67.4 Lymphocytes % 20.3 Monocytes % 6.8 Eosinophils % 4.6 H D Basophils % 0.9 Nucleated RBC % 0 Sodium 141 Potassium 4.3 Chloride 109 H Carbon Dioxide 27 Anion Gap 5 L BUN 16.9 Creatinine 0.7 Est GFR (CKD-EPI)AfAm 105.38 Est GFR (CKD-EPI)NonAf 90.92 POC Glucometer 243 Random Glucose 193 H Calcium 9.3 Phosphorus 3.7 Magnesium 2.4 CBC, BMP 03/18/19 06:10 03/18/19 06:10 Microbiology 03/16/19 22:30 Abscess Gram Stain - Final 03/16/19 22:30 Abscess Wound Culture - Preliminary Lactose Fermenting Neg Bacilli Lactose Fermenting Neg Bacilli#2 Staphylococcus Coagulase Neg 03/17/19 00:45 Perineal Gram Stain - Final 03/17/19 00:45 Perineal Wound Culture - Preliminary NO GROWTH OBTAINED AFTER 24 HOURS INCUBATION, REINCUBATED. 03/17/19 02:25 Urine - Urine Clean Catch Urine Culture - Final NO GROWTH OBTAINED HOSPITAL COURSE: Date of Admission:03/17/19 Date of Discharge: 03/18/19 63 yof with Type I DM since age 5, HTN, HLD admitted with left mons pubis abscess s.p I& D in ED treated with IV abx vanco, zosyn day 2, seen by insurance processor , and wound care , wound cx with lactose ferminiting negative bacilli and staph coagulase negative ,pt is on insilin pumb and BGM monitor atteached to her paty asking to leave home against medical advice she wants to feed her dog and bring batter for sugar device monitor, it cost her 5000 dollar . risk and disadvanatges explained to the pt including worsening infection , beactermia , sepsis and and pt sighned AMA.and wants to come back through ED again. Minutes to complete discharge: 45 Discharge Summary Reason For Visit: ACUTE ABSCESS OF FEMALE PELVIS, TYPE 1 DIABETES Condition: Guarded - Instructions Disposition: AGAINST MEDICAL ADVICE - Home Medications Comprehensive Discharge Medication List: Ambulatory Orders Aspirin [ASA -] 81 mg PO DAILY 11/14/18 Atorvastatin Ca [Lipitor] 20 mg PO HS 11/14/18 Fexofenadine HCl [Mya Allergy] 180 mg PO PRN 11/14/18 Hydrochlorothiazide [Hctz -] 12.5 mg PO DAILY 11/14/18 Insulin Pump [Insulin Pump - (Nf)] 1 each NR ASDIR 11/14/18 Metoprolol Succinate [Toprol Xl] 25 mg PO DAILY 11/14/18 Multivitamin [One-Daily Multi-Vitamin] 1 each PO DAILY 11/14/18 Pramipexole Dihydrochloride [Mirapex -] 0.5 mg PO BID 11/14/18 Ramipril [Altace] 5 mg PO DAILY 11/14/18 Mupirocin Ointment [Bactroban 2% Ointment -] 1 applic TP BID #1 tube 03/09/19 This patient is new to me today: Yes Date on this admission: 03/18/19 Emergency Visit: Yes ED Registration Date: 03/17/19 Care time: The patient presented to the Emergency Department on the above date and was hospitalized for further evaluation of their emergent condition. Critical Care patient: No - Discharge Referral Referred to [facility] Med P.C.: No ATTENDING PHYSICIAN STATEMENT I saw and evaluated the patient. I reviewed the resident's note and discussed the case with the resident. I agree with the resident's findings and plan as documented. SUBJECTIVE: OBJECTIVE: ASSESSMENT AND PLAN:
== END 2019-03-18 15:59 | disposition left against medical advice (07) | DRG 759 ==
LOC: JER 20:07 → JERBED 03-17 → J8W 03-17 03:57
PROVIDERS: ADMIT Internal Medicine; ATTEND Hospitalist
DX: N76.4 Abscess of vulva (principal); I10 Essential (primary) hypertension; E78.5 Hyperlipidemia, unspecified; E10.8 Type 1 diabetes mellitus with unspecified complications; Z79.4 Long term (current) use of insulin
CPT/HCPCS: 36415; 71045-TC-FY; 80048; 80053; 81003; 82962; 83735; 84100; 85025; 85651; 86140; 87070; 87077; 87086; 87186; 87205; 93005; 93010; 99285-25

== ENCOUNTER 2019-03-18 18:32 | Inpatient (IN) | payer OTHER ==
[2019-03-18] MEDS ORDERED: PIPERACILLIN/TAZOB 3.375 GM 3.375 GM in DEXTROSE 5%-WATER - 50 ML IVPB ONE (22:04)
[2019-03-18] MEDS ORDERED: PIPERACILLIN/TAZOB 3.375 GM 3.375 GM/50 ML BAG IVPB ONE (22:16)
--- NOTE | 2019-03-18 22:22 | PDOC ---
History of Present Illness - General Chief Complaint: Abscess Boil Stated Complaint: VAGINAL SX Time Seen by Provider: 03/18/19 21:44 History Source: Patient Exam Limitations: No Limitations - History of Present Illness Initial Comments: 03/18/19 22:20 63yo F with PMH of T1DM, HTN, and HLD presenting to ED with L labial abscess. Patient was here 2d ago and admitted. She left AMA this morning to get a emergency medicine physician assistant for one of her devices. She denies fever, pain, new abscesses increasing wound size. She was on vancomycin and Zosyn during stay. She was prescribed clindamycin when she was first seen for abscess but stopped taking it due to diarrhea. PMD: Ernandez Past History - Past Medical History Allergies/Adverse Reactions: Allergies Allergy/AdvReac Type Severity Reaction Status Date / Time No Known Allergies Allergy Verified 03/18/19 18:57 Home Medications: Ambulatory Orders Aspirin [ASA -] 81 mg PO DAILY 11/14/18 Atorvastatin Ca [Lipitor] 20 mg PO HS 11/14/18 Fexofenadine HCl [Mya Allergy] 180 mg PO PRN 11/14/18 Hydrochlorothiazide [Hctz -] 12.5 mg PO DAILY 11/14/18 Insulin Pump [Insulin Pump - (Nf)] 1 each NR ASDIR 11/14/18 Metoprolol Succinate [Toprol Xl] 25 mg PO DAILY 11/14/18 Multivitamin [One-Daily Multi-Vitamin] 1 each PO DAILY 11/14/18 Pramipexole Dihydrochloride [Mirapex -] 0.5 mg PO BID 11/14/18 Ramipril [Altace] 5 mg PO DAILY 11/14/18 Mupirocin Ointment [Bactroban 2% Ointment -] 1 applic TP BID #1 tube 03/09/19 COPD: No Diabetes: Yes HTN: Yes Hypercholesterolemia: Yes - Immunization History Immunization Up to Date: Yes - Suicide/Smoking/Psychosocial Hx Smoking History: Never smoked Have you smoked in the past 12 months: No Hx Alcohol Use: No Drug/Substance Use Hx: No Substance Use Type: None Hx Substance Use Treatment: No Review of Systems - Review of Systems Constitutional: No: Symptoms Reported HEENTM: No: Symptoms Reported Respiratory: No: Symptoms reported Cardiac (ROS): No: Symptoms Reported ABD/GI: No: Symptoms Reported : Yes: See HPI Musculoskeletal: No: Symptoms Reported Integumentary: Yes: See HPI Neurological: No: Symptoms reported *Physical Exam - Vital Signs Last Vital Signs Temp Pulse Resp BP Pulse Ox 98.2 F 96 H 18 159/74 97 03/18/19 18:52 03/18/19 18:52 03/18/19 18:52 03/18/19 18:52 03/18/19 18:52 - Physical Exam General Appearance: Yes: Nourished, Appropriately Dressed. No: Apparent Distress HEENT: positive: EOMI, RADHA Neck: positive: Trachea midline, Supple Respiratory/Chest: positive: Lungs Clear, Normal Breath Sounds. negative: Crackles, Rales, Rhonchi, Stridor Cardiovascular: positive: Regular Rhythm, Regular Rate, S1, S2. negative: Edema , JVD, Murmur Vascular Pulses: Dorsalis-Pedis (R): 2+, Doralis-Pedis (L): 2+ Female Pelvic Exam: positive: other (drained abscess on L labia majora with packing, draining purulent material. no induration) Gastrointestinal/Abdominal: positive: Normal Bowel Sounds, Soft. negative: Tender Musculoskeletal: negative: CVA Tenderness Extremity: positive: Normal Capillary Refill. negative: Coldness, Swelling, Calf Tenderness Integumentary: positive: Normal Color, Dry, Warm Neurologic: positive: svp digital sales food & cooking II-XII NML intact, Fully Oriented, Alert, Normal Mood/ Affect, Normal Response, Motor Strength 5/5 ED Treatment Course - LABORATORY CBC & Chemistry Diagram: 03/18/19 22:20 03/18/19 21:58 Medical Decision Making - Medical Decision Making 03/19/19 01:06 63yo F with PMH of T1DM, HTN, and HLD presenting to ED with L labial abscess. Patient was here 2d ago and admitted. She left AMA this morning to get a emergency medicine physician assistant for one of her devices. She denies fever, pain, new abscesses increasing wound size. She was on vancomycin and Zosyn during stay. She was prescribed clindamycin when she was first seen for abscess but stopped taking it due to diarrhea. vitals wnl pt was admitted for iv antibiotics and left ama. patient had not been started on po trial as of yet. no white count, no fever. abscess complicated by history of DM. will readmit patient. will order zosyn due to missed dose. *DC/Admit/Observation/Transfer Diagnosis at time of Disposition: Acute abscess of female pelvis DM type 1 (diabetes mellitus, type 1) Qualifiers: Diabetes mellitus complication status: without complication Qualified Code(s): E10.9 - Type 1 diabetes mellitus without complications - Discharge Dispostion Condition at time of disposition: Good Decision to Admit order: Yes - Referrals - Patient Instructions - Post Discharge Activity
--- NOTE | 2019-03-18 22:30 | PN ---
Teaching Attending Note Name of Resident: Delma Yoder ATTENDING PHYSICIAN STATEMENT I saw and evaluated the patient. I reviewed the resident's note and discussed the case with the resident. I agree with the resident's findings and plan as documented. SUBJECTIVE: Patient is a 63 year old woman with PMH of IDDM (on insulin pump), HTN, and HLD presenting to the ER with left labial abscess. Patient was admitted tow days ago and left AMA this morning to get a supervisor cook room for one of her devices. She denies any fevers, chills, nausea, vomiting, abdominal pain, abnormal vaginal discharge/bleeding, dysuria, chest pain, SOB, headache or lightheadedness. Two days ago when she came to the ER, she had taken Clindamycin for 4 days but stopped taking it due to diarrhea. Patient had I&D of the abscess performed in the ER 2 days ago and the sample sent for culture. OBJECTIVE: Alert Vital Signs Period Temp Pulse Resp BP Sys/Ro Pulse Ox Last 24 Hr 98.2 F 96 18 159/74 97 HEENT: No Jaundice, eye redness or discharge, PERRLA, EOMI. Normocephalic, atraumatic. External ears are normal and hearing is grossly intact. No nasal discharge. Neck: Supple, nontender. No palpable adenopathy or thyromegaly. No JVD Chest: Good effort. Clear to auscultation and percussion. Heart: Regular. No S3, rub or murmur Abdomen: Not distended, soft, nontender; insulin pump in place; no HSM. No rebound or guarding. Normal bowel sounds. Ext: Peripheral pulses intact. No leg edema. Skin: Warm and dry. No petechiae, rash or ecchymosis. Neuro: Alert. Oriented x3. CN 2-12 grossly intact. Sensation grossly intact in all four extremities and DTR are symmetric. Psych: Appropriate mood and affect. Good insight. Pelvic: Left labial abscess - drained and wound packed with gauze; area of surrounding erythema. Home Medications Medication Instructions Recorded Aspirin [ASA -] 81 mg PO DAILY 11/14/18 Atorvastatin Ca [Lipitor] 20 mg PO HS 11/14/18 Fexofenadine HCl [Mya Allergy] 180 mg PO PRN 11/14/18 Hydrochlorothiazide [Hctz -] 12.5 mg PO DAILY 11/14/18 Insulin Pump [Insulin Pump - (Nf)] 1 each NR ASDIR 11/14/18 Metoprolol Succinate [Toprol Xl] 25 mg PO DAILY 11/14/18 Multivitamin [One-Daily 1 each PO DAILY 11/14/18 Multi-Vitamin] Pramipexole Dihydrochloride 0.5 mg PO BID 11/14/18 [Mirapex -] Ramipril [Altace] 5 mg PO DAILY 11/14/18 Mupirocin Ointment [Bactroban 2% 1 applic TP BID #1 tube 03/09/19 Ointment -] Laboratory Results - last 24 hr 03/18/19 22:20 WBC 8.3 RBC 4.18 Hgb 12.5 Hct 38.3 MCV 91.8 MCH 30.0 MCHC 32.6 RDW 14.6 Plt Count 344 MPV 8.1 Absolute Neuts (auto) 5.8 Neutrophils % 70.2 Lymphocytes % 19.8 Monocytes % 6.0 Eosinophils % 3.5 Basophils % 0.5 Nucleated RBC % 0 ASSESSMENT AND PLAN: 1. Left labial abscess - Failed outpatient clindamycin. Will continue with IV Vancomycin and Zosyn pending culture report. Will get CT scan to see if there residual abscess collection. Get CBC, BMP, Urinalysis and Urine toxicology. Reconsult ID. Provide daily wound care. 2. DM Will implement sliding scale insulin regimen. Provide comprehensive diabetes care with patient teaching and counseling about the importance of adherence to prescribed diabetes regimen, euglycemia, eye care and foot care. 3. Overweight Counseled on the risks associated with being overweight. Will provide patient all the necessary assistance, counseling and positive reinforcement to facilitate weight loss. Consult stringed instrument assembler. 4. Hypertension - Restart suitable outpatient antihypertensive drugs when clinically appropriate. Revise regimen to ensure [id number] excellent BP control and summer camp counselor patient on the injurious effects of uncontrolled hypertension. Nonpharmacologic measures to control hypertension like weight loss , salt restriction and exercise discussed. Importance of adherence to treatment regimen and attainment of normotension emphasized. 5. DVT prophylaxis - Lovenox 40 mg SQ q 24 hours. 6. Advance directives - Full code
[2019-03-18 22:47] LABS: BASO % 0.5 % (0-2.0); EOS % 3.5 % (0-4.5); HEMATOCRIT 38.3 % (32.4-45.2); HEMOGLOBIN 12.5 GM/dL (10.7-15.3); LYMPH % 19.8 % (8-40); MCHC 32.6 g/dl (32.0-36.0); MEAN CELL VOLUME 91.8 fl (80-96); MEAN PLT VOLUME 8.1 fl (7.5-11.1); NEUT % 70.2 % (42.8-82.8); PLATELET COUNT 344 K/MM3 (134-434); RBC 4.18 M/mm3 (3.60-5.2); RDW 14.6 % (11.6-15.6); WHITE BLOOD COUNT 8.3 K/mm3 (4.0-10.0)
[2019-03-18 23:15] LABS: ALBUMIN 3.6 g/dl (3.4-5.0); BILIRUBIN,TOTAL 0.8 mg/dL (0.2-1); BLOOD UREA NITROGEN 25.2 mg/dL (7-18); CALCIUM 9.7 mg/dL (8.5-10.1); CREATININE 0.6 mg/dL (0.55-1.3); POTASSIUM 4.5 mmol/L (3.5-5.1); TOT PROT 7.6 g/dl (6.4-8.2)
--- NOTE | 2019-03-18 23:54 | PDOC ---
Documentation entered by Tatum Wong SCRIBE, acting as scribe for Alvin Palacios MD. Alvin Palacios MD: This documentation has been prepared by the Judith deutsch Brenda, SCRIBE, under my direction and personally reviewed by me in its entirety. I confirm that the documentation accurately reflects all work, treatment, procedures, and medical decision making performed by me. Attending Attestation - Resident Resident Name: Paty Leung - ED Attending Attestation I have performed the following: I have examined & evaluated the patient, The case was reviewed & discussed with the resident, I agree w/resident's findings & plan, Exceptions are as noted - HPI HPI: 03/18/19 23:34 The patient is a 63 year old female, with a significant PMH of IDDM, HTN and HLD 2who presents to the emergency department with a left labial abscess. Patient currently feels no pain, but did endorse previous dysuria, urgency and frequency. She also notes having some drainage earlier. The patient denies chest pain, shortness of breath, headache and dizziness. Denies fever, chills, nausea, vomiting, diarrhea and constipation. Denies hematuria. Allergies: NKA Past surgical history: Hernia repair PCP: Chun Ernandez - Physicial Exam PE: 03/18/19 23:59 Vitals: Triage vital signs reviewed General Appearance: No acute distress, well nourished, well developed Head: Atraumatic Neck: Supple; No nuchal rigidity Chest Wall: Nontender Cardiac: Regular rate and rhythm, no murmurs, no rubs, no gallops Lungs: Clear to auscultation bilateral, good air movement bilaterally Abdomen: Soft, nondistended, normal bowel sounds, nontender to palpation Extremities: Full range of motion to all extremities, no cyanosis, clubbing, or edema Skin: (+) Labial abscess with packing, no surrounding redness. Warm and dry, no petechiae. Neuro: AOX3; Cranial Nerves 2-12 grossly intact. Psych: Normal mood, normal affect - Medical Decision Making 03/19/19 01:06 Patient had signed out AGAINST MEDICAL ADVICE while being treated with IV antibiotics for labial infection re-presents to be readmitted to finish her course of antibiotics well-appearing We'll restart antibiotics and readmit such that patient can finish her antibiotics.
[2019-03-19] MEDS ORDERED: ACETAMINOPHEN 325 MG TABLET (FP) PO PRN (00:13)
[2019-03-19] MEDS ORDERED: [UNRECOGNIZED DRUG - REMARK] PO SCH (04:45)
[2019-03-19] MEDS ORDERED: INSULIN PUMP NR SCH (04:45)
--- NOTE | 2019-03-19 04:50 | HP ---
CHIEF COMPLAINT: pubic abscess PCP: Dr. Ernandez HISTORY OF PRESENT ILLNESS: 63 y/o F, w/ pmh of T1DM on insulin pump, HTN, HLD, PAC's, Restless leg syndrome , Retinopathy of prematurity, strabismus, fibrothecoma, presents to the ED for left genital abscess s/p I&D at [facility]. As per pt, she had noticed inflammation and irritation on her pubic region 2 weeks ago, for which she went to the hospital and was discharged on clindamycin. Then her symptoms returned on monday which prompted her to come to the ED. She was admitted, treated w/ Abx and I&D was done w/ packing of the site w/ Iodoform. While still on Abx, pt left AMA from the hospital because she wanted to get her phone paralegal. As per pt, she needed her paralegal for her insulin sensor. She later returned for readmission in the ED. Currently, pt is stable, wound is packed and appears clean, and pt has no further c/o. ER course was notable for: (1) UCx- gram neg bacilli- lactose fermenting, staph coagulase neg. 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 Social History: Smoking: denies Alcohol: denies Drugs: denies Family History: Father- TIA's Mother HTN, DM type 2 Allergies seasonal No Known Allergies Allergy (Verified 03/18/19 18:57) HOME MEDICATIONS: Home Medications Medication Instructions Recorded Aspirin [ASA -] 81 mg PO DAILY 11/14/18 Atorvastatin Ca [Lipitor] 20 mg PO HS 11/14/18 Fexofenadine HCl [Mya Allergy] 180 mg PO PRN 11/14/18 Hydrochlorothiazide [Hctz -] 12.5 mg PO DAILY 11/14/18 Insulin Pump [Insulin Pump - (Nf)] 1 each NR ASDIR 11/14/18 Metoprolol Succinate [Toprol Xl] 25 mg PO DAILY 11/14/18 Multivitamin [One-Daily 1 each PO DAILY 11/14/18 Multi-Vitamin] Pramipexole Dihydrochloride 0.5 mg PO BID 11/14/18 [Mirapex -] Ramipril [Altace] 5 mg PO DAILY 11/14/18 Mupirocin Ointment [Bactroban 2% 1 applic TP BID #1 tube 03/09/19 Ointment -] REVIEW OF SYSTEMS CONSTITUTIONAL: Absent: fever, chills, diaphoresis,loss of appetite, weight change HEENT: Absent: eye pain, visual changes CARDIOVASCULAR: Absent: chest pain, syncope, palpitations, RESPIRATORY: Absent: cough, shortness of breath, dyspnea with exertion, wheezing, hemoptysis GASTROINTESTINAL: Absent: abdominal pain, abdominal distension, nausea, vomiting, diarrhea, melena , hematochezia GENITOURINARY: Absent: dysuria, frequency, urgency, hesitancy, hematuria, flank pain, genital pain MUSCULOSKELETAL: Absent: back pain HEMATOLOGIC/IMMUNOLOGIC: Absent: frequent infections ENDOCRINE: Absent: unexplained weight gain/loss NEUROLOGIC: Absent: headache, dizziness, unsteady gait, seizure, bladder or bowel incontinence PSYCHIATRIC: Absent: anxiety, PHYSICAL EXAMINATION Vital Signs - 24 hr Last Vital Signs Temp Pulse Resp BP Pulse Ox 98.2 F 96 H 18 159/74 97 03/18/19 18:52 03/18/19 18:52 03/18/19 18:52 03/18/19 18:52 03/18/19 18:52 GENERAL: Awake, alert, and fully oriented, in no acute distress. EYES: Pupils equal, round and reactive to light, extraocular movements intact, EARS, NOSE, THROAT: oropharynx clear without exudates. Moist mucous membranes. NECK: supple without lymphadenopathy, JVD, or masses. No bruit LUNGS: Breath sounds equal, clear to auscultation bilaterally. No wheezes, and no crackles. HEART: Regular rate and rhythm, normal S1 and S2 without murmur, rub or gallop. ABDOMEN: Soft, nontender, not distended, normoactive bowel sounds, no guarding, no rebound, no masses. No hepatomegaly or splenomegaly. MUSCULOSKELETAL: No CVA tenderness. UPPER EXTREMITIES: 2+ pulses, warm, well-perfused. No peripheral edema. LOWER EXTREMITIES: 2+ pulses, warm, well-perfused. No peripheral edema. NEUROLOGICAL: Normal speech. PSYCHIATRIC: Cooperative. Good eye contact. Appropriate mood and affect. Laboratory Results - last 24 hr CBC, BMP 03/18/19 22:20 03/18/19 21:58 ASSESSMENT/PLAN: 63 y/o F, w/ pmh of T1DM on insulin pump, HTN, HLD, PAC's, Retinopathy of prematurity, presents to the ED for left genital abscess s/p I&D and Abx #Pubic abscess likely 2/2 DM Zosyn restarted today Q6H Add Vanco to therapy in the Am When Blood Cx returns- target therapy ID consulted- Dr. Galvez r/p EKG ordered UTox ordered r/p CBC and BMP IVF NS at 50- one bag- due to hx of dehydration CT pelvis ordered- to looks for complete drainage of abscess if not fully drained- consider consulting general surgery or station detective #Type 2 DM continue on insulin pump if not sufficient- insulin sliding scale ordered BGM #HTN continue home meds- HCTZ, Metoprolol, Altace #HLD continue home meds-Atorvastatin #PACs r/p EKG ordered #DVT ppx heparin sq #FEN: Sodium/Diabetic controlled diet Dispo: f/u w/ ID in am, f/u CT results, f/u EKG Visit type - Emergency Visit Emergency Visit: Yes ED Registration Date: 03/18/19 Care time: The patient presented to the Emergency Department on the above date and was hospitalized for further evaluation of their emergent condition. - New Patient This patient is new to me today: Yes Date on this admission: 03/19/19 - Critical Care Critical Care patient: No ATTENDING PHYSICIAN STATEMENT I saw and evaluated the patient. I reviewed the resident's note and discussed the case with the resident. I agree with the resident's findings and plan as documented. SUBJECTIVE: OBJECTIVE: ASSESSMENT AND PLAN:
[2019-03-19] MEDS ORDERED: SODIUM CHLORIDE 1,000 ML IV SCH (05:15)
[2019-03-19] MEDS ORDERED: HEPARIN NA (PORCINE) 5,000 UNITS/ML 1ML VIAL SQ SCH (06:00)
[2019-03-19] MEDS ORDERED: PIPERACILLIN/TAZOB 3.375 GM 3.375 GM/50 ML BAG IVPB ONE ×2 (06:08→14:25)
[2019-03-19] MEDS ORDERED: HEPARIN NA (PORCINE) 5,000 UNITS/ML 1ML VIAL ONE (06:08)
[2019-03-19] MEDS: PIPERACILLIN/TAZOB 3.375 GM 3.375 GM in DEXTROSE 5%-WATER - 50 ML IVPB SCH ×3 (07:24→22:41)
[2019-03-19 07:49] LABS: BASO % 0.7 % (0-2.0); EOS % 5.1 % (0-4.5); HEMATOCRIT 38.2 % (32.4-45.2); HEMOGLOBIN 12.7 GM/dL (10.7-15.3); LYMPH % 24.8 % (8-40); MCH 30.5 pg (25.7-33.7); MCHC 33.3 g/dl (32.0-36.0); MEAN CELL VOLUME 91.7 fl (80-96); MEAN PLT VOLUME 8.1 fl (7.5-11.1); MONO % 7.8 % (3.8-10.2); NEUT % 61.6 % (42.8-82.8); PLATELET COUNT 342 K/MM3 (134-434); RBC 4.17 M/mm3 (3.60-5.2); RDW 14.6 % (11.6-15.6); WHITE BLOOD COUNT 6.6 K/mm3 (4.0-10.0)
[2019-03-19 08:01] LABS: ALBUMIN 3.4 g/dl (3.4-5.0); BLOOD UREA NITROGEN 21.8 mg/dL (7-18); CALCIUM 9.6 mg/dL (8.5-10.1); CREATININE 0.6 mg/dL (0.55-1.3); TOT PROT 7.2 g/dl (6.4-8.2)
[2019-03-19] MEDS: INSULIN SLIDING SCALE (NOVOLOG) 1 VIAL SQ SCH ×3 (08:30→14:22)
[2019-03-19] MEDS: ASPIRIN 81 MG CHEWABLE TABLETS PO SCH (10:00)
[2019-03-19] MEDS: metoPROLOL SUCCINATE 25 MG TAB.SR.24H (FP) PO SCH (11:00)
[2019-03-19] MEDS: HYDROCHLOROTHIAZIDE 12.5 MG CAPSULE (FP) PO SCH (11:00)
[2019-03-19] MEDS: PRAMIPEXOLE DIHYDROCHLORIDE 0.5 MG TABLET PO SCH ×2 (11:00→22:41)
[2019-03-19] MEDS: RAMIPRIL 5 MG CAPSULE (FP) PO SCH (11:00)
[2019-03-19] MEDS: MULTIVITAMINS (DAILY MVI) TABLET (FP) PO SCH (11:00)
--- NOTE | 2019-03-19 13:06 | PN ---
Physical Exam: SUBJECTIVE: Patient seen and examined, no new complaints/fevers or chills. OBJECTIVE: Vital Signs Period Temp Pulse Resp BP Sys/Ro Pulse Ox Last 24 Hr 97.6 F-98.5 F 83-96 16-18 120-159/72-90 97-99 Intake & Output 03/16/19 03/17/19 03/18/19 03/19/19 23:59 23:59 23:59 23:59 Weight 144 lb GENERAL: ambulating in hallway in no acute distress neck: soft, supple CVS: S1S2 regular Chest: CTAB, no rales or wheezing Abdomen:Soft, obese, NT Genital: 3 cm indurated area with central packing soaked, surrounding erythema, on left mons pubis, minimally tender Extremities: no edema psych: pleasant, co-operative Laboratory Results - last 24 hr 03/18/19 03/18/19 03/19/19 21:58 22:20 05:57 WBC 8.3 6.6 RBC 4.18 4.17 Hgb 12.5 12.7 Hct 38.3 38.2 MCV 91.8 91.7 MCH 30.0 30.5 MCHC 32.6 33.3 RDW 14.6 14.6 Plt Count 344 342 MPV 8.1 8.1 Absolute Neuts (auto) 5.8 4.1 Neutrophils % 70.2 61.6 Lymphocytes % 19.8 24.8 D Monocytes % 6.0 7.8 Eosinophils % 3.5 5.1 H Basophils % 0.5 0.7 Nucleated RBC % 0 0 Sodium 143 Potassium 4.5 Chloride 110 H Carbon Dioxide 28 Anion Gap 6 L BUN 25.2 H Creatinine 0.6 Est GFR (CKD-EPI)AfAm 110.86 Est GFR (CKD-EPI)NonAf 95.65 POC Glucometer Random Glucose 149 H Calcium 9.7 Total Bilirubin 0.8 AST 24 ALT 25 Alkaline Phosphatase 97 Total Protein 7.6 Albumin 3.6 03/19/19 03/19/19 06:54 08:31 WBC RBC Hgb Hct MCV MCH MCHC RDW Plt Count MPV Absolute Neuts (auto) Neutrophils % Lymphocytes % Monocytes % Eosinophils % Basophils % Nucleated RBC % Sodium 144 Potassium 4.0 Chloride 111 H Carbon Dioxide 26 Anion Gap 7 L BUN 21.8 H Creatinine 0.6 Est GFR (CKD-EPI)AfAm 110.86 Est GFR (CKD-EPI)NonAf 95.65 POC Glucometer 197 Random Glucose 89 Calcium 9.6 Total Bilirubin 1.0 AST 19 ALT 23 Alkaline Phosphatase 94 Total Protein 7.2 Albumin 3.4 Active Medications Generic Name Dose Route Start Last Admin Trade Name Freq PRN Reason Stop Dose Admin Acetaminophen 650 mg 03/19/19 00:13 Tylenol - PO Q4H PRN PAIN Aspirin 81 mg 03/19/19 10:00 Asa - PO DAILY [facility] Atorvastatin Calcium 20 mg 03/19/19 22:00 Lipitor - PO HS DANIELLE Heparin Sodium (Porcine) 5,000 unit 03/19/19 06:00 03/19/19 07:24 Heparin - SQ Not Given TID DANIELLE Hydrochlorothiazide 12.5 mg 03/19/19 10:00 Hctz - PO DAILY DANIELLE Piperacillin Sod/Tazobactam 50 mls @ 100 mls/hr 03/19/19 06:00 03/19/19 07:24 Sod 3.375 gm/ Dextrose IVPB 03/19/19 14:29 100 mls/hr Q8H DANIELLE Administration Protocol Sodium Chloride 1,000 mls @ 50 mls/hr 03/19/19 05:15 03/19/19 05:34 Normal Saline - IV 03/20/19 01:14 50 mls/hr ASDIR DANIELLE Administration Piperacillin Sod/Tazobactam 50 mls @ 100 mls/hr 03/19/19 20:00 Sod 3.375 gm/ Dextrose IVPB Q8H-IV [facility] Protocol Insulin Aspart 1 vial 03/19/19 07:00 03/19/19 09:23 Novolog Vial Sliding Scale - SQ Not Given ACHS [facility] Protocol Metoprolol Succinate 25 mg 03/19/19 10:00 Toprol Xl - PO DAILY [facility] Multivitamins/Minerals/Vitamin C 1 tab 03/19/19 10:00 Tab-A-Vit - PO DAILY DANIELLE Non-Formulary Medication 180 mg 03/19/19 04:45 Fexofenadine Hcl [Mya Allergy] PO PRN DANIELLE Non-Formulary Medication 1 each 03/19/19 04:45 Insulin Pump [Insulin Pump - (Nf)] NR ASDIR DANIELLE Pramipexole Dihydrochloride 0.5 mg 03/19/19 10:00 Mirapex - PO BID DANIELLE Ramipril 5 mg 03/19/19 10:00 Altace - PO DAILY DANIELLE ASSESSMENT/PLAN: 63 yof with Type I DM since age 5, HTN, HLD admitted with left mons pubis abscess -Left Mons Pubis Abscess s/p I&D in ED -Type I DM on insulin pump -HTN -HLD Plan: Left AMA yesterday for personal reasons, no new concerns. s/p I&D in ED. Seater Grinder input noted. Discussed with Dr. Chauhan, daily packing change with wet to dry dressing, discussed with nursing, to provide wound care teaching to patient. Discussed with social work, plan for home VNS. ID input noted, follow up wound cx. Zosyn/vancomycin day 3. Await wound cx sent 03/16/2019. CT pelvis results noted. Patient has her own insulin pump/glucometer device inserted. With regular BGM monitoring and insulin basal and bolus delivery. Prefers to continue with her home insulin regimen. Will continue BGM AC and HS and monitor for now. Continue statin/toprol XL. Resume Ramipril. Hold ASA for now. DVTPPX lovenox Dispo pending clinical improvement , culture results and ID recs. Plan discussed with patient and nursing in detail, all questions answered. Visit type - Emergency Visit Emergency Visit: Yes ED Registration Date: 03/18/19 Care time: The patient presented to the Emergency Department on the above date and was hospitalized for further evaluation of their emergent condition. - New Patient This patient is new to me today: No - Critical Care Critical Care patient: No - Discharge Referral Referred to [facility] Med [facility].C[facility] No
[2019-03-19] MEDS: VANCOMYCIN 1,000 MG in DEXTROSE 5%-WATER - 250 ML IVPB ONE ×2 (16:13→17:13)
[2019-03-19] MEDS ORDERED: VANCOMYCIN 1 GRAM (PRE-DOCKED) 1,000 MG/250 ML BAG IVPB ONE (16:19)
--- NOTE | 2019-03-19 16:20 | PN ---
Progress Note (short form) - Note Progress Note: she went home to get her battery pack for her insulin pump and feed her dogs, returned last night pelvic ct scan noted Vital Signs Period Temp Pulse Resp BP Sys/Ro Pulse Ox Last 24 Hr 97.6 F-98.8 F 83-86 16-20 120-131/69-90 96-99 cor-rrr lungs clear abd soft,nt ext no edema pubic abscess with trace purulence CBC, BMP 03/19/19 05:57 03/19/19 06:54 wound culture with kleb, enterobacter, strep viridans a/p pubic abscess s/p drainage, still some purulence continue janetteifeoma need to teach her wound care hopefully home in am on po antibiotics IDDM- on pump
[2019-03-19 17:12] VITALS: BMI 27.6
[2019-03-19] MEDS ORDERED: PIPERACILLIN/TAZOB 3.375 GM 3.375 GM in DEXTROSE 5%-WATER - 50 ML IVPB SCH (20:00)
--- NOTE | 2019-03-19 20:17 | CON.OBG ---
Consult Consult Specialty:: SERVICES ENGINEER Referred by:: Dr. Lynch Reason for Consultation:: 63yo P0 with left mons pubis abscess. - History of Present Illness Chief Complaint: Pt with abscess at left mons pubis x 1 week. History of Present Illness: Pt was treated with oral Clindamycin initially but stopped taking it after 3-4 days due to developed diarrhea. The abscess got worse and the pt came back to ER. A I&D of abscess was done on 03/17/2019. The pt has been receiving IV abx. She is afebrile and feels better. - History Source History Provided By: Patient, Medical Record Limitations to Obtaining History: No Limitations - Past Medical History SKIRT CLIPPER: Yes: Migraine Cardio/Vascular: Yes: HTN Pulmonary: No: Asthma, Bronchitis, Cancer, COPD, O2 Dependent, Pneumonia, Previously Intubated, Pulmonary Embolus, Pulmonary Fibrosis, Sleep Apnea, Other Gastrointestinal: No: Ascites, Cancer, Constipation, Crohn's Disease, Diverticulitis, Diverticulosis, Esophageal Varices, Gastritis, GERD, GI Bleed, Hemorrhoids, Hiatal Hernia, Inflamatory Bowel Disease, Irritable Bowel Disease, Pancreatitis, Peptic Ulcer Disease, Ulcerative Colitis, Other Hepatobiliary: No: Cirrhosis, Cholelithiasis, Cholecystitis, Choledocholithiasis , Hepatitis A, Hepatitis B, Hepatitis C, Other Renal/: No: Renal Failure, Renal Inusuff, BPH, Cancer, Hematuria, Hemodialysis , Neurogenic Bladder, Renal Calculi, UTI, Other ...: No Infectious Disease: No: AIDS, C-Diff, Herpes Zoster, HIV, MRSA, STD's, Tuberculosis, VREF, Other Psych: No: Addictions, Anxiety, Bipolar, Depression, Panic, Psychosis, Schizophrenia, Other Musculoskeletal: No: Bursitis, Chronic low back pain, Hemiparesis, Hemiplegia, Osteoarthritis, Paraplegia, Other Rheumatology: No: Fibromyalgia, Gout, Lupus, Rheumatoid Arthritis, Sarcoidosis, Vasculitis, Other ENT: Yes: Other (retinopathy) Endocrine: Yes: Diabetes Mellitus Dermatology: No: Basal Cell, Cellulitis, Eczema, Melanoma, Psoriasis, Squamous Cell, Other - Past Surgical History Past Surgical History: Yes: Hysterectomy (CHIO/BSO due to fibrothecoma) - Alcohol/Substance Use Hx Alcohol Use: No History of Substance Use: reports: None - Smoking History Smoking history: Never smoked Have you smoked in the past 12 months: No - Social History Usual Living Arrangement: Alone ADL: Independent 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 Place of : [facility] History of Recent Travel: No Home Medications - Allergies Allergies/Adverse Reactions: Allergies Allergy/AdvReac Type Severity Reaction Status Date / Time No Known Allergies Allergy Verified 03/18/19 18:57 - Home Medications Home Medications: Ambulatory Orders Aspirin [ASA -] 81 mg PO DAILY 11/14/18 Atorvastatin Ca [Lipitor] 20 mg PO HS 11/14/18 Fexofenadine HCl [Mya Allergy] 180 mg PO PRN 11/14/18 Hydrochlorothiazide [Hctz -] 12.5 mg PO DAILY 11/14/18 Insulin Pump [Insulin Pump - (Nf)] 1 each NR ASDIR 11/14/18 Metoprolol Succinate [Toprol Xl] 25 mg PO DAILY 11/14/18 Multivitamin [One-Daily Multi-Vitamin] 1 each PO DAILY 11/14/18 Pramipexole Dihydrochloride [Mirapex -] 0.5 mg PO BID 11/14/18 Ramipril [Altace] 5 mg PO DAILY 11/14/18 Mupirocin Ointment [Bactroban 2% Ointment -] 1 applic TP BID #1 tube 03/09/19 Family Disease History - Family Disease History Family History: Unremarkable Review of Systems - Review of Systems Constitutional: reports: No Symptoms Eyes: reports: No Symptoms HENT: reports: No Symptoms Neck: reports: No Symptoms Cardiovascular: reports: No Symptoms Respiratory: reports: No Symptoms Gastrointestinal: reports: No Symptoms Genitourinary: reports: No Symptoms Breasts: reports: No Symptoms Reported Musculoskeletal: reports: No Symptoms Integumentary: reports: No Symptoms Neurological: reports: No Symptoms Endocrine: reports: No Symptoms Hematology/Lymphatic: reports: No Symptoms Psychiatric: reports: No Symptoms Pain Intensity: 1 Physical Exam-SERVICES ENGINEER Vital Signs: Vital Signs Temperature 98.8 F 03/19/19 16:45 Pulse Rate 83 03/19/19 16:45 Respiratory Rate 20 03/19/19 16:45 Blood Pressure 126/69 03/19/19 16:45 O2 Sat by Pulse Oximetry (%) 96 03/19/19 17:29 Constitutional: Yes: Well Nourished, No Distress, Calm Eyes: Yes: WNL, Conjunctiva Clear HENT: Yes: Atraumatic, Normocephalic Neck: Yes: WNL, Supple Cardiovascular: Yes: WNL, Regular Rate and Rhythm Respiratory: Yes: Regular, CTA Bilaterally Gastrointestinal: Yes: Normal Bowel Sounds, Soft ...Rectal Exam: Yes: Deferred Pelvis: Yes: WNL External Genitalia: Yes: Normal Musculoskeletal: Yes: WNL Extremities: Yes: WNL Edema: No Integumentary: Yes: Other (left mons pubis abscess draining, with clean edges, minimal erythema, packing in place, dressing in place.) Wound/Incision: Yes: Dressing Dry and Intact, Draining Neurological: Yes: WNL, Alert, Oriented ...Motor Strength: WNL Psychiatric: Yes: WNL, Alert, Oriented Labs: CBC, BMP 03/19/19 05:57 03/19/19 06:54 Assessment/Plan 63yo diabetic female with left mons pubis abscess, s/p ID. She is now on IV Zosyn. The abscess appears to be improving, minimal drainage. Continue IV abx. Dressing changes BID. Pt was advised to f/u in office after discharge- either this week or next week.
[2019-03-19] MEDS ORDERED: DEXTROSE 5%-WATER - 50 ML IVPB ONE (21:39)
[2019-03-19] MEDS ORDERED: PIPERACILLIN/TAZOBACTAM 3.375 GM VIAL IVPB ONE (21:39)
[2019-03-19] MEDS ORDERED: ATORVASTATIN CA 20 MG TABLET (FP) PO SCH (22:00)
[2019-03-20] MEDS ORDERED: DEXTROSE 5%-WATER - 50 ML IVPB ONE ×2 (03:03→12:14)
[2019-03-20] MEDS ORDERED: PIPERACILLIN/TAZOBACTAM 3.375 GM VIAL IVPB ONE ×2 (03:03→12:14)
[2019-03-20] MEDS: PIPERACILLIN/TAZOB 3.375 GM 3.375 GM in DEXTROSE 5%-WATER - 50 ML IVPB SCH ×2 (03:26→12:38)
--- NOTE | 2019-03-20 07:49 | PN ---
Physical Exam: SUBJECTIVE: Patient seen and examined OBJECTIVE: Vital Signs Period Temp Pulse Resp BP Sys/Ro Pulse Ox Last 24 Hr 98.3 F-98.8 F 83-87 16-20 125-131/67-90 96-99 GENERAL: The patient is awake, alert, and fully oriented, in no acute distress. HEAD: Normal with no signs of trauma. EYES: PERRL, extraocular movements intact, sclera anicteric, conjunctiva clear. No ptosis. ENT: Ears normal, nares patent, oropharynx clear without exudates, moist mucous membranes. NECK: Trachea midline, full range of motion, supple. LUNGS: Breath sounds equal, clear to auscultation bilaterally, no wheezes, no crackles, no accessory muscle use. HEART: Regular rate and rhythm, S1, S2 without murmur, rub or gallop. ABDOMEN: Soft, nontender, nondistended, normoactive bowel sounds, no guarding, no rebound, no hepatosplenomegaly, no masses. EXTREMITIES: 2+ pulses, warm, well-perfused, no edema. NEUROLOGICAL: Cranial nerves II through XII grossly intact. Normal speech, gait not observed. PSYCH: Normal mood, normal affect. SKIN: Warm, dry, normal turgor, no rashes or lesions noted Laboratory Results - last 24 hr 03/19/19 03/19/19 03/19/19 05:57 06:54 08:31 WBC 6.6 RBC 4.17 Hgb 12.7 Hct 38.2 MCV 91.7 MCH 30.5 MCHC 33.3 RDW 14.6 Plt Count 342 MPV 8.1 Absolute Neuts (auto) 4.1 Neutrophils % 61.6 Lymphocytes % 24.8 D Monocytes % 7.8 Eosinophils % 5.1 H Basophils % 0.7 Nucleated RBC % 0 Sodium 144 Potassium 4.0 Chloride 111 H Carbon Dioxide 26 Anion Gap 7 L BUN 21.8 H Creatinine 0.6 Est GFR (CKD-EPI)AfAm 110.86 Est GFR (CKD-EPI)NonAf 95.65 POC Glucometer 197 Random Glucose 89 Calcium 9.6 Total Bilirubin 1.0 AST 19 ALT 23 Alkaline Phosphatase 94 Total Protein 7.2 Albumin 3.4 03/19/19 14:19 WBC RBC Hgb Hct MCV MCH MCHC RDW Plt Count MPV Absolute Neuts (auto) Neutrophils % Lymphocytes % Monocytes % Eosinophils % Basophils % Nucleated RBC % Sodium Potassium Chloride Carbon Dioxide Anion Gap BUN Creatinine Est GFR (CKD-EPI)AfAm Est GFR (CKD-EPI)NonAf POC Glucometer 91 Random Glucose Calcium Total Bilirubin AST ALT Alkaline Phosphatase Total Protein Albumin Active Medications Generic Name Dose Route Start Last Admin Trade Name Freq PRN Reason Stop Dose Admin Acetaminophen 650 mg 03/19/19 00:13 Tylenol - PO Q4H PRN PAIN Aspirin 81 mg 03/19/19 10:00 03/19/19 10:00 Asa - PO 81 mg DAILY DANIELLE Administration Atorvastatin Calcium 20 mg 03/19/19 22:00 03/19/19 22:41 Lipitor - PO 20 mg HS DANIELLE Administration Enoxaparin Sodium 40 mg 03/20/19 10:00 Lovenox - SQ DAILY DANIELLE Hydrochlorothiazide 12.5 mg 03/19/19 10:00 03/19/19 11:00 Hctz - PO 12.5 mg DAILY DANIELLE Administration Piperacillin Sod/Tazobactam 50 mls @ 100 mls/hr 03/19/19 20:00 03/20/19 03:26 Sod 3.375 gm/ Dextrose IVPB 100 mls/hr Q8H DANIELLE Administration Protocol Metoprolol Succinate 25 mg 03/19/19 10:00 03/19/19 11:00 Toprol Xl - PO 25 mg DAILY DANIELLE Administration Multivitamins/Minerals/Vitamin C 1 tab 03/19/19 10:00 03/19/19 11:00 Tab-A-Vit - PO 1 tab DAILY DANIELLE Administration Non-Formulary Medication 180 mg 03/19/19 04:45 Fexofenadine Hcl [Mya Allergy] PO PRN DANIELLE Non-Formulary Medication 1 each 03/19/19 04:45 Insulin Pump [Insulin Pump - (Nf)] NR ASDIR DANIELLE Pramipexole Dihydrochloride 0.5 mg 03/19/19 10:00 03/19/19 22:41 Mirapex - PO 0.5 mg BID DANIELLE Administration Ramipril 5 mg 03/19/19 10:00 03/19/19 11:00 Altace - PO 5 mg DAILY DANIELLE Administration ASSESSMENT/PLAN: ATTENDING PHYSICIAN STATEMENT I saw and evaluated the patient. I reviewed the resident's note and discussed the case with the resident. I agree with the resident's findings and plan as documented. SUBJECTIVE: OBJECTIVE: ASSESSMENT AND PLAN:
[2019-03-20 09:36] LABS: BASO % 0.4 % (0-2.0); EOS % 3.6 % (0-4.5); HEMATOCRIT 40.8 % (32.4-45.2); HEMOGLOBIN 13.4 GM/dL (10.7-15.3); LYMPH % 15.2 % (8-40); MCH 30.5 pg (25.7-33.7); MCHC 32.9 g/dl (32.0-36.0); MEAN CELL VOLUME 92.9 fl (80-96); MEAN PLT VOLUME 8.3 fl (7.5-11.1); MONO % 4.8 % (3.8-10.2); PLATELET COUNT 354 K/MM3 (134-434); RBC 4.39 M/mm3 (3.60-5.2); RDW 14.4 % (11.6-15.6); WHITE BLOOD COUNT 8.2 K/mm3 (4.0-10.0)
[2019-03-20] MEDS ORDERED: PT OWN MED DRAWER 7, Y5N ONE (09:48)
[2019-03-20] MEDS: MULTIVITAMINS (DAILY MVI) TABLET (FP) PO SCH (09:54)
[2019-03-20] MEDS: RAMIPRIL 5 MG CAPSULE (FP) PO SCH (09:54)
[2019-03-20] MEDS: metoPROLOL SUCCINATE 25 MG TAB.SR.24H (FP) PO SCH (09:54)
[2019-03-20] MEDS: ASPIRIN 81 MG CHEWABLE TABLETS PO SCH (09:54)
[2019-03-20] MEDS: HYDROCHLOROTHIAZIDE 12.5 MG CAPSULE (FP) PO SCH (09:54)
[2019-03-20] MEDS: PRAMIPEXOLE DIHYDROCHLORIDE 0.5 MG TABLET PO SCH (09:55)
[2019-03-20] MEDS ORDERED: ENOXAPARIN NA (PORCINE) 40 MG/0.4 ML DISP.SYRIN SQ SCH (10:00)
[2019-03-20 10:01] LABS: BLOOD UREA NITROGEN 19.4 mg/dL (7-18); CALCIUM 9.6 mg/dL (8.5-10.1); CREATININE 0.8 mg/dL (0.55-1.3); MAGNESIUM 2.4 mg/dL (1.8-2.4); PHOSPHOROUS 3.6 mg/dL (2.5-4.9); POTASSIUM 4.4 mmol/L (3.5-5.1)
--- NOTE | 2019-03-20 11:08 | DS ---
Physical Exam: SUBJECTIVE: Patient seen and examined no new compalin asking to go home OBJECTIVE: Vital Signs Period Temp Pulse Resp BP Sys/Ro Pulse Ox Last 24 Hr 98.3 F-98.8 F 83-104 16-20 112-131/67-90 96-99 PHYSICAL EXAM GENERAL: The patient is awake, alert, and fully oriented, in no acute distress. HEAD: Normal with no signs of trauma. EYES: PERRL, extraocular movements intact, sclera anicteric, conjunctiva clear. ENT: Ears normal, nares patent, oropharynx clear without exudates, moist mucous membranes. NECK: Trachea midline, full range of motion, supple. LUNGS: Breath sounds equal, clear to auscultation bilaterally, no wheezes, no crackles, no accessory muscle use. HEART: Regular rate and rhythm, S1, S2 without murmur, rub or gallop. ABDOMEN: Soft, nontender, nondistended, normoactive bowel sounds, no guarding, no rebound, no hepatosplenomegaly, no masses. EXTREMITIES: 2+ pulses, warm, well-perfused, no edema. NEUROLOGICAL: Cranial nerves II through XII grossly intact. Normal speech, gait not observed. PSYCH: Normal mood, normal affect. SKIN: Warm, dry, 3 cm indurated area with central packing, surrounding erythema , on left mons pubis, minimally tender LABS Laboratory Results - last 24 hr 03/19/19 03/20/19 03/20/19 14:19 08:56 08:56 WBC 8.2 RBC 4.39 Hgb 13.4 Hct 40.8 MCV 92.9 MCH 30.5 MCHC 32.9 RDW 14.4 Plt Count 354 MPV 8.3 Absolute Neuts (auto) 6.2 Neutrophils % 76.0 D Lymphocytes % 15.2 D Monocytes % 4.8 Eosinophils % 3.6 Basophils % 0.4 Nucleated RBC % 0 Sodium 139 Potassium 4.4 Chloride 104 Carbon Dioxide 28 Anion Gap 7 L BUN 19.4 H Creatinine 0.8 Est GFR (CKD-EPI)AfAm 89.67 Est GFR (CKD-EPI)NonAf 77.37 POC Glucometer 91 Random Glucose 282 H Calcium 9.6 Phosphorus 3.6 Magnesium 2.4 CBC, BMP 03/20/19 08:56 03/20/19 08:56 03/16/19 22:30 Abscess Gram Stain - Final 03/16/19 22:30 Abscess Wound Culture - Preliminary Lactose Fermenting Neg Bacilli Lactose Fermenting Neg Bacilli#2 Staphylococcus Coagulase Neg 03/17/19 00:45 Perineal Gram Stain - Final 03/17/19 00:45 Perineal Wound Culture - Preliminary NO GROWTH OBTAINED AFTER 24 HOURS INCUBATION, REINCUBATED. 03/17/19 02:25 Urine - Urine Clean Catch Urine Culture - Final NO GROWTH OBTAINED HOSPITAL COURSE: Date of Admission:03/18/19 Date of Discharge: 03/20/19 63 yof with Type I DM since age 5, HTN, HLD admitted with left mons pubis abscess, s/p I&D in ED, tretated with IV abx , zosyn and will be dc home with 7 days abx of bactrim 1 gm BID and Amoxicillin 500 TID . VNS services will eb provided for wound care and wound packing , bgm monitored closely , follow up with ID Dr Galvez and hot wire glass tube cutter within one week. resume all home meds as before admission. Minutes to complete discharge: 35 Discharge Summary Reason For Visit: ACUTE ABSCESS OF FEMALE PELVIS,TYPE I DIABETES Current Active Problems DM type 1 (diabetes mellitus, type 1) (Chronic) Condition: Stable - Instructions Diet, Activity, Other Instructions: You presented to the hospital due to skin abscess , It was drained and treated with antibiotics . You will be send home with visiting nurse to teach about wound care and how to pack the wound. Please take the following antibiotics for more 7 days Bactrim DS 1 smallwood;et twice daily for 7 days Amoxicillin 500 mg three time daily for 7 days Continue home medications as before INSTRUCTIONS: Wound care: Wound dressing to be done daily. Ok to remove packing before shower and reapply new packing and apply wet to dry dressing over it. Ensure it is changed daily. VNS has been arranged to help you with the same. you will need to follow up with Gynceologist in 3-5 days or can come back to ED for a wound check. While on bactrim, ensure to drink plenty of fluids and maintain adequate hydration. If you notice a rash, decreased urination or any new concerns, stop the medication and call your doctor or come to ED. Follow up with : With primary care doctor in [address] Chauhan in 3-5 days If you develop fever , chills, sever pain , chest pain , rash, increased redness /swelling/discharge/pain from the wound, your symptoms worsen, or any new concerns, please return to emergency room. Referrals: Karlene Galvez MD [Staff Physician] - 1 Week Kat Chauhan MD [Staff Physician] - 1 Week Chun Ernandez MD [Primary Care Provider] - 1 Week Disposition: VNS/HOME HEALTH CARE - Home Medications Comprehensive Discharge Medication List: Ambulatory Orders Aspirin [ASA -] 81 mg PO DAILY 11/14/18 Atorvastatin Ca [Lipitor] 20 mg PO HS 11/14/18 Fexofenadine HCl [Mya Allergy] 180 mg PO PRN 11/14/18 Hydrochlorothiazide [Hctz -] 12.5 mg PO DAILY 11/14/18 Insulin Pump [Insulin Pump - (Nf)] 1 each NR ASDIR 11/14/18 Metoprolol Succinate [Toprol Xl] 25 mg PO DAILY 11/14/18 Multivitamin [One-Daily Multi-Vitamin] 1 each PO DAILY 11/14/18 Pramipexole Dihydrochloride [Mirapex -] 0.5 mg PO BID 11/14/18 Ramipril [Altace] 5 mg PO DAILY 11/14/18 Mupirocin Ointment [Bactroban 2% Ointment -] 1 applic TP BID #1 tube 03/09/19 This patient is new to me today: No Emergency Visit: Yes ED Registration Date: 03/18/19 Care time: The patient presented to the Emergency Department on the above date and was hospitalized for further evaluation of their emergent condition. Critical Care patient: No - Discharge Referral Referred to [facility] No ATTENDING PHYSICIAN STATEMENT I saw and evaluated the patient. I reviewed the resident's note and discussed the case with the resident. I agree with the resident's findings and plan as documented. SUBJECTIVE: OBJECTIVE: ASSESSMENT AND PLAN:
--- NOTE | 2019-03-20 11:37 | EKG ---
Test Reason : Blood Pressure : / mmHG Vent. Rate : 090 BPM Atrial Rate : 090 BPM P-R Int : 130 ms QRS Dur : 072 ms QT Int : 376 ms P-R-T Axes : 069 043 053 degrees QTc Int : 459 ms NORMAL SINUS RHYTHM NORMAL ECG WHEN COMPARED WITH ECG OF 17-MAR-2019 01:35, NONSPECIFIC T WAVE ABNORMALITY NO LONGER EVIDENT IN ANTERIOR LEADS Confirmed by WINTER HUANG, HELGA ([id number]) on 03/20/2019 11:37:19 AM Referred By: Peggy BOYCE Confirmed By:HELGA MAX MD
--- NOTE | 2019-03-20 11:50 | PN ---
Teaching Attending Note Name of Resident: Jett Sadler ATTENDING PHYSICIAN STATEMENT I saw and evaluated the patient. I reviewed the resident's note and discussed the case with the resident. I agree with the resident's findings and plan as documented with exceptions below. SUBJECTIVE: patient seen and examined, no new fevers, chills or concerns. OBJECTIVE: Vital Signs Period Temp Pulse Resp BP Sys/Ro Pulse Ox Last 24 Hr 98.3 F-98.8 F 83-104 20-20 112-126/67-69 96-99 Intake & Output 03/17/19 03/18/19 03/19/19 03/20/19 23:59 23:59 23:59 23:59 Intake Total 850 100 Balance 850 100 Weight 144 lb 151 lb 3 oz GENERAL: sitting in bed in no acute distress neck: soft, supple CVS: S1S2 regular Chest: CTAB, no rales or wheezing Abdomen:Soft, obese, NT Genital: 3 cm indurated area with central packing, surrounding erythema, on left mons pubis, minimally tender Extremities: no edema psych: pleasant, co-operative ASSESSMENT AND PLAN: 63 yof with Type I DM since age 5, HTN, HLD admitted with left mons pubis abscess -Left Mons Pubis Abscess s/p I&D in ED -Type I DM on insulin pump -HTN -HLD Plan: Doing well ID/electric motor fitter input noted. discussed with nurse about wound care teaching. Wound cultures noted. Await final ID input on abx recs. Continue home insulin pump/glucometer device. D/c home today pending ID input on po abx and home VNS for wound care. Discussed with patient, nursing and social work.
--- NOTE | 2019-03-20 12:18 | PN ---
Progress Note (short form) - Note Progress Note: no complaints Vital Signs Period Temp Pulse Resp BP Sys/Ro Pulse Ox Last 24 Hr 98.3 F-98.8 F 83-104 20-20 112-126/67-69 96-99 cor-rrr lungs clear pubic abscess- no purulence, minimal erythema wound culture with klebsiella, enterobacter, strep viridans CBC, BMP 03/20/19 08:56 03/20/19 08:56 a/p pubic abscess s/p drainage- wound care per gynecology, appears improved, no purulence noted she is reluctant to take levaquin would treat with bactrim dx 1 po bid for 7 days and amox 500 tid for 7 days outpt f/u with gynecology need to teach her wound care IDDM- on pump
[2019-03-20 14:45] VITALS: TEMP 98.7
[2019-03-20 15:31] VITALS: BP 132/80; PULSE 100
[2019-03-20] MEDS ORDERED: AMOXICILLIN 500 MG CAPSULE (FP) PO SCH (22:00)
[2019-03-20] MEDS ORDERED: SULFAMETHOXAZOLE/TRIMETHOPRIM 800MG/160MG D.S. TABLET PO SCH (22:00)
== END 2019-03-20 16:44 | disposition home health service (06) | DRG 759 ==
LOC: JER 18:32 → JERBED 22:59 → J5S 03-19 16:29
PROVIDERS: ADMIT Internal Medicine; ATTEND Hospitalist
DX: N76.4 Abscess of vulva (principal); I10 Essential (primary) hypertension; E78.5 Hyperlipidemia, unspecified; E10.8 Type 1 diabetes mellitus with unspecified complications; Z79.4 Long term (current) use of insulin; E66.3 Overweight; Z68.27 Body mass index [BMI] 27.0-27.9, adult
CPT/HCPCS: 36415; 72192-TC; 80048; 80053; 82962; 83735; 84100; 85025; 93005; 93010; 99285-25; J7030

== ENCOUNTER 2019-04-19 04:31 | Emergency (ER) | payer OTHER ==
--- NOTE | 2019-04-19 04:48 | PDOC ---
History of Present Illness - General Stated Complaint: PELVIC PAIN Time Seen by Provider: 04/19/19 04:47 Past History - Past Medical History Allergies/Adverse Reactions: Allergies Allergy/AdvReac Type Severity Reaction Status Date / Time No Known Allergies Allergy Verified 04/19/19 05:39 Home Medications: Ambulatory Orders Aspirin [ASA -] 81 mg PO DAILY 11/14/18 Atorvastatin Ca [Lipitor] 20 mg PO HS 11/14/18 Fexofenadine HCl [Mya Allergy] 180 mg PO PRN 11/14/18 Hydrochlorothiazide [Hctz -] 12.5 mg PO DAILY 11/14/18 Insulin Pump [Insulin Pump - (Nf)] 1 each NR ASDIR 11/14/18 Metoprolol Succinate [Toprol Xl] 25 mg PO DAILY 11/14/18 Multivitamin [One-Daily Multi-Vitamin] 1 each PO DAILY 11/14/18 Pramipexole Dihydrochloride [Mirapex -] 0.5 mg PO BID 11/14/18 Ramipril [Altace] 5 mg PO DAILY 11/14/18 Acetaminophen [Tylenol] 325 mg PO PRN PRN 04/19/19 Sulfamethoxazole/Trimethoprim [Bactrim Ds -] 1 tab PO BID #14 tablet 04/19/19 Anemia: No Asthma: No Cancer: No Cardiac Disorders: (pt has h/o PAC"S) CVA: No COPD: No CHF: No Diabetes: Yes (has an insulin pump on l abdomen and glucose sensor on r abdoman) GI Disorders: Yes (gerd-takes zantac) Disorders: Yes (fibrothecoma) HTN: Yes Hypercholesterolemia: Yes Liver Disease: No Seizures: No Thyroid Disease: No - Surgical History Abdominal Surgery: No Appendectomy: No Cardiac Surgery: No Cholecystectomy: No Lung Surgery: No Neurologic Surgery: No Orthopedic Surgery: No - Immunization History Immunization Up to Date: Yes - Suicide/Smoking/Psychosocial Hx Smoking History: Never smoked Have you smoked in the past 12 months: No Hx Alcohol Use: No Drug/Substance Use Hx: No Substance Use Type: None Hx Substance Use Treatment: No ED Treatment Course - LABORATORY CBC & Chemistry Diagram: 04/19/19 06:12 04/19/19 06:12 Medical Decision Making - Medical Decision Making HPI: 63yo F with PMH of DM on insulin pump, HTN, HLD, GERD, PACs, hysterectomy with oophorectomy presenting with pelvic pain. Patient had a recent labial abscess for which I&D was performed on 03/16. Patient was admitted to the hospital for failed outpatient antibiotic therapy and was given vanc/zosyn. Patient was discharged on 03/20 and transitioned to po antibiotics and has finished the course. She saw her veterinary radiologist, Dr. Costello, and was told that 'everything looked fine.' Patient started having a "dull" pain rated 5/10 yesterday that became more severe at 2am, and she also had nausea and vomiting. Patient states it is different from her abscess pain as it feels deeper. No fevers, but endorses chills. No chest pain or shortness of breath. PCP: Dr. Chun Ernandez can intake worker: Dr. Costello ROS: Constitutional: no fever, +chills HEENT: no throat pain, no dysphagia Cardiovascular: no chest pain, no palpitations Respiratory: no cough, no shortness of breath Gastrointestinal: +nausea, +vomiting Genitourinary: no dysuria, no hematuria Musculoskeletal: no myalgia, no arthralgia Skin: no rash, no itching Neurologic: no headache, no weakness PE: General: Awake, alert, and fully oriented, in no acute distress Head: No signs of trauma Eyes: EOMI, sclera anicteric ENT: Moist mucus membranes Neck: Normal ROM, supple Lungs: Lungs clear, Normal breath sounds Cardio: Regular rhythm, S1 and S2 present Abdomen: Soft, nontender. No guarding, no rebound, no masses. Patient points to left suprapubic area superior to inguinal crease as the area of her pain and there is no tenderness to palpation in this area appreciated Extremities: Normal range of motion, Distal pulses present SKIN: Warm, Dry, normal turgor Neurologic: Cranial nerves II through XII grossly intact. Normal speech Pelvic: external exam without abnormality; well-healing I&D scab with no surrounding erythema, induration, or fluctuance ED Course/MDM: DDX including but not limited to abscess, UTI, pyelonephritis, STI, PID, vaginal trauma Labs Tylenol 04/19/19 04:47 Patient unable to tolerate the pelvic exam. No abnormalities seen externally, however, upon placing the size small speculum patient yelped, stating she was afraid of pain upon insertion of the speculum. A second attempt was made with speculum, however, patient said "stop" and the exam was halted. Since patient will likely not be able to tolerate a transvaginal ultrasound, we will obtain CTAP with IV contrast to rule out abscess. 04/19/19 06:54 CBC WBC 11.4 K/mm3 (4.0-10.0) H 04/19/19 06:12 RBC 4.16 M/mm3 (3.60-5.2) 04/19/19 06:12 Hgb 12.6 GM/dL (10.7-15.3) 04/19/19 06:12 Hct 37.6 % (32.4-45.2) 04/19/19 06:12 MCV 90.5 fl (80-96) 04/19/19 06:12 MCH 30.3 pg (25.7-33.7) 04/19/19 06:12 MCHC 33.5 g/dl (32.0-36.0) 04/19/19 06:12 RDW 14.3 % (11.6-15.6) 04/19/19 06:12 Plt Count 294 K/MM3 (134-434) 04/19/19 06:12 MPV 8.9 fl (7.5-11.1) 04/19/19 06:12 Absolute Neuts (auto) 10.2 K/mm3 (1.5-8.0) H 04/19/19 06:12 Neutrophils % 90.0 % (42.8-82.8) H 04/19/19 06:12 Lymphocytes % 5.9 % (8-40) L D 04/19/19 06:12 Monocytes % 3.4 % (3.8-10.2) L 04/19/19 06:12 Eosinophils % 0.3 % (0-4.5) D 04/19/19 06:12 Basophils % 0.4 % (0-2.0) 04/19/19 06:12 Nucleated RBC % 0 % (0-0) 04/19/19 06:12 Mild leukocytosis Pending chemistries, UA, and CTAP Patient signed out to Dr. Seo and day team 04/19/19 07:38 *DC/Admit/Observation/Transfer Diagnosis at time of Disposition: UTI (urinary tract infection) - Discharge Dispostion Disposition: HOME Condition at time of disposition: Stable - Prescriptions Prescriptions: Sulfamethoxazole/Trimethoprim [Bactrim Ds -] 1 tab PO BID #14 tablet - Referrals Referrals: Chun Ernandez MD [Primary Care Provider] - - Patient Instructions Printed Discharge Instructions: DI for Urinary Tract Infection (UTI) Additional Instructions: You were evaluated in the emergency department for abdominal pain. Your bloodwork showed a small increased in your white blood cell counts, which can indicate an infection. We found a Urinary Tract Infection in your urine - we are prescribing you one week of Bactrim, an antibiotic that can treat your infection. Please take the medication twice daily, with food, as it can upset your stomach. Please make sure to follow up with your Glove Machine Operator doctor as soon as possible, within the next seven days. Please follow up with your primary care provider as soon as possible as well. Please return to the Emergency Department if you develop high fevers, chills, nausea, vomiting, confusion, or weakness. - Post Discharge Activity
[2019-04-19] MEDS ORDERED: ACETAMINOPHEN 325 MG TABLET (FP) PO ONE (05:24)
--- NOTE | 2019-04-19 05:48 | PDOC ---
Attending Attestation - Resident Resident Name: Chery Kerr - ED Attending Attestation I have performed the following: I have examined & evaluated the patient, The case was reviewed & discussed with the resident, I agree w/resident's findings & plan, Exceptions are as noted - HPI HPI: 04/19/19 07:40 63F pmh DM, HTN, HLD, s/p TAHBSO here with pelvic pain. Pt recently had a labial abscess that failed out patient therapy and require inpatient ID/abx. Pt has a dull pain in the general region of the abscess but "deeper." A/w n/v, no other complaints. No discharge, bleeding - Physicial Exam PE: 04/19/19 07:42 Agree with exam as documented by resident - Medical Decision Making 04/19/19 07:42 No visible, palpable external abscess, pt could not tolerate pelvic exam Concern for infectious collection vs cellulitis f/u labs, if Cr can tolerate, CT AP wc If infectious collection or other acute pathology, utility maintenance worker or gen surg eval as appropriate If imaging, labs, ua unremarkble, trial pain control dispo per clinical course
[2019-04-19 06:18] VITALS: BMI 28.3
[2019-04-19 06:37] LABS: BASO % 0.4 % (0-2.0); EOS % 0.3 % (0-4.5); HEMATOCRIT 37.6 % (32.4-45.2); HEMOGLOBIN 12.6 GM/dL (10.7-15.3); LYMPH % 5.9 % (8-40); MCH 30.3 pg (25.7-33.7); MCHC 33.5 g/dl (32.0-36.0); MEAN CELL VOLUME 90.5 fl (80-96); MEAN PLT VOLUME 8.9 fl (7.5-11.1); MONO % 3.4 % (3.8-10.2); PLATELET COUNT 294 K/MM3 (134-434); RBC 4.16 M/mm3 (3.60-5.2); RDW 14.3 % (11.6-15.6); WHITE BLOOD COUNT 11.4 K/mm3 (4.0-10.0)
[2019-04-19 06:53] LABS: PROTHROMBIN TIME (PATIENT) 11.8 SEC (9.7-13.0)
[2019-04-19] MEDS ORDERED: ACETAMINOPHEN 325 MG TABLET (FP) ONE (07:22)
[2019-04-19 07:41] LABS: ALBUMIN 3.7 g/dl (3.4-5.0); BILIRUBIN,TOTAL 1.2 mg/dL (0.2-1); BLOOD UREA NITROGEN 19.9 mg/dL (7-18); CALCIUM 9.4 mg/dL (8.5-10.1); CREATININE 0.7 mg/dL (0.55-1.3); POTASSIUM 4.4 mmol/L (3.5-5.1); TOT PROT 7.5 g/dl (6.4-8.2)
--- NOTE | 2019-04-19 08:03 | PDOC ---
*Physical Exam - Vital Signs Last Vital Signs Temp Pulse Resp BP Pulse Ox 98.3 F 106 H 17 138/65 98 04/19/19 05:35 04/19/19 05:35 04/19/19 05:35 04/19/19 05:35 04/19/19 05:35 ED Treatment Course - LABORATORY CBC & Chemistry Diagram: 04/19/19 06:12 04/19/19 06:12 - ADDITIONAL ORDERS Additional order review: Laboratory Results 04/19/19 04/19/19 06:12 06:12 PT with INR 11.80 INR 1.00 Sodium 138 Potassium 4.4 Chloride 102 Carbon Dioxide 28 Anion Gap 8 BUN 19.9 H Creatinine 0.7 Est GFR (CKD-EPI)AfAm 105.38 Est GFR (CKD-EPI)NonAf 90.92 Random Glucose 240 H Calcium 9.4 Total Bilirubin 1.2 H AST 30 ALT 22 Alkaline Phosphatase 91 Total Protein 7.5 Albumin 3.7 04/19/19 06:12 RBC 4.16 MCV 90.5 MCHC 33.5 RDW 14.3 MPV 8.9 Neutrophils % 90.0 H Lymphocytes % 5.9 L D Monocytes % 3.4 L Eosinophils % 0.3 D Basophils % 0.4 - Medications Given in the ED: ED Medications Discontinued Medications Generic Name Dose Route Start Last Admin Trade Name Frank PRN Reason Stop Dose Admin Acetaminophen 975 mg 04/19/19 05:24 04/19/19 07:24 Tylenol - PO 04/19/19 05:25 975 mg ONCE ONE Administration Medical Decision Making - Medical Decision Making 04/19/19 09:00 Sign out received from Dr. Kerr. 63F with hx IDDM, recent labial abscess drainage on 03/16/19 s/p vanc/zosyn p/w pelvic pain, N, V since 0200 this morning, unable to tolerate pelvic exam. Surgical hx hysterectomy, oophorectomy. Pending: [] CT Abdomen/Pelvis [] UA result [] CMP 04/19/19 09:02 UA notable for 2+ Leuk esterase, Nitrites, 2+ blood CMP - Glucose 240. Otherwise wnl 04/19/19 09:42 On reassessment, still endorsing 7/10 abdominal pain. Tramadol 50mg ordered 04/19/19 14:34 CT still unread. Unable to contact on-call radiologist, called radiology who will alert radiologist. 04/19/19 14:52 CT notable for urothelial thickening, likely UTI vs cystitis. Plan for outpatient therapy with Bactrim DS BID for 7 days, close Ending Machine Operator and PCP follow up. *DC/Admit/Observation/Transfer Diagnosis at time of Disposition: UTI (urinary tract infection) Qualifiers: Urinary tract infection type: site unspecified Hematuria presence: without hematuria Qualified Code(s): N39.0 - Urinary tract infection, site not specified - Discharge Dispostion Disposition: HOME Condition at time of disposition: Stable Decision to Admit order: No - Prescriptions Prescriptions: Sulfamethoxazole/Trimethoprim [Bactrim Ds -] 1 tab PO BID #14 tablet - Referrals Referrals: Chun Ernandez MD [Primary Care Provider] - - Patient Instructions Printed Discharge Instructions: DI for Urinary Tract Infection (UTI) Additional Instructions: You were evaluated in the emergency department for abdominal pain. Your bloodwork showed a small increased in your white blood cell counts, which can indicate an infection. We found a Urinary Tract Infection in your urine - we are prescribing you one week of Bactrim, an antibiotic that can treat your infection. Please take the medication twice daily, with food, as it can upset your stomach. Please make sure to follow up with your Ending Machine Operator doctor as soon as possible, within the next seven days. Please follow up with your primary care provider as soon as possible as well. Please return to the Emergency Department if you develop high fevers, chills, nausea, vomiting, confusion, or weakness. - Post Discharge Activity
[2019-04-19 08:59] LABS: EPI CELLS 3.3 /HPF (0-5/HPF); HYALINE CASTS 48 /lpf (0-8); URINE APPEARANCE TURBID; URINE BILIRUBIN NEGATIVE (NEGATIVE); URINE COLOR YELLOW; URINE GLUCOSE (UA) 2+ (NEGATIVE); URINE KETONE 2+ (NEGATIVE); URINE LEUK ESTERASE 3+ (NEGATIVE); URINE NITRITE POSITIVE (NEGATIVE); URINE PROTEIN 2+ (NEGATIVE); URINE RBC 25 /hpf (0-4); URINE UROBILINOGEN 0.2 mg/dL (0.2-1.0); URINE WBC 1057 /hpf (0-5)
[2019-04-19] MEDS ORDERED: traMADol HCL 50 MG TABLET PO ONE (09:43)
[2019-04-19] MEDS ORDERED: traMADol HCL 50 MG TABLET ONE (10:03)
[2019-04-19 12:29] VITALS: TEMP 98.1
[2019-04-19 12:33] LABS: YEAST NONE SEEN (NEGATIVE)
[2019-04-19 15:35] VITALS: BP 134/60; PULSE 101
== END 2019-04-19 15:35 | disposition home or self-care (01) ==
LOC: JER 04:31
DX: N39.0 Urinary tract infection, site not specified (principal); I10 Essential (primary) hypertension; E78.00 Pure hypercholesterolemia, unspecified; K21.9 Gastro-esophageal reflux disease without esophagitis; E11.9 Type 2 diabetes mellitus without complications; Z79.4 Long term (current) use of insulin; Z96.41 Presence of insulin pump (external) (internal); I49.1 Atrial premature depolarization
CPT/HCPCS: 36415; 74177-TC; 80053; 81003; 85025; 85610; 87086; 87186; 99283-25

== ENCOUNTER 2020-02-17 21:56 | Inpatient (IN) | payer OTHER ==
[2020-02-17 22:10] VITALS: BMI 28.3
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
--- NOTE | 2020-02-17 23:54 | PDOC ---
History of Present Illness - General Chief Complaint: Pain, Acute Stated Complaint: RIGHT LEG PAIN Time Seen by Provider: 02/17/20 22:06 History Source: Patient - History of Present Illness Initial Comments: 02/18/20 01:01 64-year-old female insulin-dependent diabetic, HTN, HLD, PAC's, Restless leg syndrome, Retinopathy of prematurity, strabismus, fibrothecomacomplaining of right leg swelling redness and pain. Patient reports that 4 days ago she had an insect bite to the right lower extremity now with increased redness and pain. Denies fever/chills, chest pain , abdominal pain PCP Dr. Ernandez Past History - Medical History Allergies/Adverse Reactions: Allergies Allergy/AdvReac Type Severity Reaction Status Date / Time cephalexin [From Keflex] AdvReac Verified 02/17/20 22:10 Home Medications: Ambulatory Orders Aspirin [ASA -] 81 mg PO DAILY 11/14/18 Atorvastatin Ca [Lipitor] 20 mg PO HS 11/14/18 Fexofenadine HCl [Mya Allergy] 180 mg PO PRN 11/14/18 Hydrochlorothiazide [Hctz -] 12.5 mg PO DAILY 11/14/18 Insulin Pump [Insulin Pump - (Nf)] 1 each NR ASDIR 11/14/18 Metoprolol Succinate [Toprol Xl] 25 mg PO DAILY 11/14/18 Multivitamin [One-Daily Multi-Vitamin] 1 each PO DAILY 11/14/18 Pramipexole Dihydrochloride [Mirapex -] 0.5 mg PO BID 11/14/18 Ramipril [Altace] 5 mg PO DAILY 11/14/18 Acetaminophen [Tylenol] 325 mg PO PRN PRN 04/19/19 Sulfamethoxazole/Trimethoprim [Bactrim Ds -] 1 tab PO BID #14 tablet 04/19/19 Cephalexin Monohydrate [Keflex -] 500 mg PO Q6H 7 Days #28 capsule 01/24/20 Anemia: No Asthma: No Cancer: No Cardiac Disorders: (pt has h/o PAC"S) CVA: No COPD: No CHF: No Diabetes: Yes (has an insulin pump on l abdomen and glucose sensor on r abdoman) GI Disorders: Yes (gerd-takes zantac) Disorders: Yes (fibrothecoma) HTN: Yes Hypercholesterolemia: Yes Liver Disease: No Seizures: No Thyroid Disease: No - Surgical History Abdominal Surgery: No Appendectomy: No Cardiac Surgery: No Cholecystectomy: No Lung Surgery: No Neurologic Surgery: No Orthopedic Surgery: No - Immunization History Immunization Up to Date: Yes - Psycho-Social/Smoking History Smoking History: Never smoked Have you smoked in the past 12 months: No - Substance Abuse Hx (Audit-C & DAST Scrn) How often the patient has a drink containing alcohol: Never Score: In Men: 4 or > Positive; In Women: 3 or > Positive: 0 Screen Result (Pos requires Nsg. Audit-10AR): Negative In the last yr the pt used illegal drug/Rx for NonMed reason: No Score: Yes response is considered Positive: 0 Screen Result (Positive result requires Nsg. DAST-10): Negative Review of Systems - Review of Systems Able to Perform ROS?: Yes Is the patient limited Portuguese proficient: No Constitutional: No: Symptoms Reported, See HPI, Chills, Diaphoresis, Fever, Loss of Appetite, Malaise, Night Sweats, Weakness, Weight Stable, Unintentional Wgt. Loss, Unexplained wgt Loss, Other Integumentary: Yes: Erythema *Physical Exam - Vital Signs Last Vital Signs Temp Pulse Resp BP Pulse Ox 98.5 F 85 19 141/64 97 02/17/20 22:06 02/17/20 22:06 02/17/20 22:06 02/17/20 22:06 02/17/20 22:06 - Physical Exam General Appearance: Yes: Appropriately Dressed Respiratory/Chest: positive: Lungs Clear, Normal Breath Sounds Cardiovascular: positive: Regular Rhythm, Regular Rate Musculoskeletal: positive: Other (edema to right lower extremity) Extremity: positive: Normal Capillary Refill, Erythema (right sun warm to touch no streaking) Integumentary: positive: Normal Color, Dry, Warm Neurologic: positive: Fully Oriented, Alert, Normal Mood/Affect ED Treatment Course - LABORATORY CBC & Chemistry Diagram: 02/18/20 00:22 02/18/20 00:22 - RADIOLOGY Radiology Studies Ordered: Category Date Time Status DUPLEX VASCUL US-1 LEG [US] Stat Ultrasound 02/17/20 22:14 Completed ED Progress Note - Progress Note Progress Note: 02/18/20 01:07 A: right lower leg cellulitis P: CBC CMP IV antibiotics admission US: negative for DVT 02/18/20 03:38 patient signed out to Dr. Uribe 02/18/20 05:58 Discharge - Discharge Information Problems reviewed: Yes Clinical Impression/Diagnosis: Leg swelling Cellulitis Qualifiers: Site of cellulitis: extremity Site of cellulitis of extremity: lower extremity Laterality: right Qualified Code(s): L03.115 - Cellulitis of right lower limb - Admission Yes - Follow up/Referral - Patient Discharge Instructions - Post Discharge Activity
[2020-02-17] MEDS ORDERED: PIPERACILLIN/TAZOB 3.375 GM 3.375 GM in DEXTROSE 5%-WATER - 50 ML IVPB ONE (23:56)
--- NOTE | 2020-02-17 23:59 | PDOC ---
*Physical Exam - Vital Signs Last Vital Signs Temp Pulse Resp BP Pulse Ox 98.5 F 85 19 141/64 97 02/17/20 22:06 02/17/20 22:06 02/17/20 22:06 02/17/20 22:06 02/17/20 22:06 Medical Decision Making - Medical Decision Making 02/17/20 23:59 Patient seen by the advanced practice provider under my supervision. Ancillary testing reviewed as necessary. I agree with plan as outlined by the advanced practice provider. Discharge - Discharge Information Problems reviewed: Yes Clinical Impression/Diagnosis: Leg swelling, Cellulitis - Follow up/Referral Referrals: Chun Ernandez MD [Primary Care Provider] - - Patient Discharge Instructions - Post Discharge Activity
[2020-02-18] MEDS ORDERED: PIPERACILLIN/TAZOB 3.375 GM 3.375 GM/50 ML BAG IVPB ONE (00:13)
[2020-02-18 00:55] LABS: BASO % 0.5 % (0-2.0); EOS % 3.3 % (0-4.5); HEMATOCRIT 41.2 % (32.4-45.2); HEMOGLOBIN 13.3 GM/dL (10.7-15.3); LYMPH % 21.7 % (8-40); MCH 29.6 pg (25.7-33.7); MCHC 32.3 g/dl (32.0-36.0); MEAN CELL VOLUME 91.5 fl (80-96); MEAN PLT VOLUME 8.7 fl (7.5-11.1); NEUT % 66.5 % (42.8-82.8); PLATELET COUNT 288 K/MM3 (134-434); RDW 14.7 % (11.6-15.6); WHITE BLOOD COUNT 8.1 K/mm3 (4.0-10.0)
[2020-02-18 01:23] LABS: BILIRUBIN,TOTAL 0.9 mg/dL (0.2-1); BLOOD UREA NITROGEN 19.6 mg/dL (7-18); CREATININE 0.8 mg/dL (0.55-1.3); POTASSIUM 4.2 mmol/L (3.5-5.1)
[2020-02-18 01:47] LABS: CALCIUM 7.6 mg/dL (8.5-10.1)
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
[2020-02-18 03:31] VITALS: TEMP 97.9
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
[2020-02-18] MEDS ORDERED: VANCOMYCIN 1 GRAM (PRE-DOCKED) 1,000 MG/250 ML BAG IVPB ONE (05:44)
[2020-02-18] MEDS ORDERED: VANCOMYCIN 1 GRAM (PRE-DOCKED) 1,000 MG/250 ML BAG IVPB SCH ×2 (06:00→18:00)
[2020-02-18 07:05] LABS: BASO % 0.6 % (0-2.0); EOS % 3.8 % (0-4.5); HEMATOCRIT 40.3 % (32.4-45.2); HEMOGLOBIN 12.9 GM/dL (10.7-15.3); LYMPH % 25.1 % (8-40); MCH 29.2 pg (25.7-33.7); MCHC 32.1 g/dl (32.0-36.0); MEAN PLT VOLUME 8.5 fl (7.5-11.1); MONO % 6.4 % (3.8-10.2); NEUT % 64.1 % (42.8-82.8); PLATELET COUNT 240 K/MM3 (134-434); RBC 4.43 M/mm3 (3.60-5.2); RDW 14.8 % (11.6-15.6)
[2020-02-18 07:37] LABS: ALBUMIN 3.4 g/dl (3.4-5.0); BILIRUBIN,TOTAL 1.2 mg/dL (0.2-1); BLOOD UREA NITROGEN 16.6 mg/dL (7-18); CALCIUM 8.7 mg/dL (8.5-10.1); CREATININE 0.9 mg/dL (0.55-1.3); MAGNESIUM 2.3 mg/dL (1.8-2.4); PHOSPHOROUS 3.9 mg/dL (2.5-4.9); POTASSIUM 4.1 mmol/L (3.5-5.1); TOT PROT 7.2 g/dl (6.4-8.2)
[2020-02-18] MEDS ORDERED: INSULIN SLIDING SCALE (NOVOLOG) 1 VIAL SQ ONE (08:12)
[2020-02-18] MEDS ORDERED: INSULIN (NOVOLOG MIX 70/30) 100 UNITS/ML MDV SQ ONE (08:13)
[2020-02-18] MEDS: INSULIN SLIDING SCALE (NOVOLOG) 1 VIAL SQ SCH ×3 (08:40→16:42)
[2020-02-18 09:54] LABS: INR 0.94 (0.83-1.09); PROTHROMBIN TIME (PATIENT) 11.1 SEC (9.7-13.0)
[2020-02-18 09:57] LABS: ACTIVATED PTT 27.2 SECONDS (25.2-36.5)
[2020-02-18] MEDS ORDERED: ASPIRIN 81 MG CHEWABLE TABLETS PO SCH (10:00)
[2020-02-18] MEDS ORDERED: metoPROLOL SUCCINATE 25 MG TAB.SR.24H (FP) PO SCH (10:00)
[2020-02-18] MEDS ORDERED: RAMIPRIL 5 MG CAPSULE (FP) PO SCH (10:00)
[2020-02-18] MEDS ORDERED: ENOXAPARIN NA (PORCINE) 40 MG/0.4 ML DISP.SYRIN SQ SCH (10:00)
[2020-02-18] MEDS ORDERED: PIPERACILLIN/TAZOB 2.25 GM 2.25 GM in DEXTROSE 5%-WATER - 50 ML IVPB SCH (10:00)
[2020-02-18] MEDS ORDERED: HYDROCORTISONE 0.5% TOPICAL CREAM 30 GM TUBE TP ONE (11:00)
[2020-02-18] MEDS ORDERED: ASPIRIN 81 MG CHEWABLE TABLETS ONE (11:39)
[2020-02-18] MEDS ORDERED: metoPROLOL SUCCINATE 25 MG TAB.SR.24H (FP) ONE (11:39)
[2020-02-18] MEDS ORDERED: RAMIPRIL 5 MG CAPSULE (FP) ONE (11:40)
[2020-02-18] MEDS ORDERED: PIPERACILLIN/TAZOB 2.25 GM 2.25 GM/50 ML BAG IVPB ONE (11:40)
[2020-02-18] MEDS ORDERED: ENOXAPARIN NA (PORCINE) 40 MG/0.4 ML DISP.SYRIN SQ ONE (11:40)
--- NOTE | 2020-02-18 12:05 | EKG ---
Test Reason : Blood Pressure : / mmHG Vent. Rate : 075 BPM Atrial Rate : 075 BPM P-R Int : 138 ms QRS Dur : 076 ms QT Int : 418 ms P-R-T Axes : 076 039 046 degrees QTc Int : 466 ms NORMAL SINUS RHYTHM POSSIBLE LEFT ATRIAL ENLARGEMENT BORDERLINE ECG WHEN COMPARED WITH ECG OF 20-MAR-2019 10:37, NO SIGNIFICANT CHANGE WAS FOUND Confirmed by Miki Parry MD ([id number]) on 02/18/2020 12:04:57 PM Referred By: Confirmed By:Miki Parry MD
[2020-02-18 12:11] LABS: EPI CELLS >36 /uL (0-25.1); HYALINE CASTS 5 /uL (0-3.1); PH,URINE 6.5 (5.0-8.0); URINE APPEARANCE CLOUDY; URINE BACTERIA 96 /uL (0-1359); URINE BILIRUBIN NEGATIVE (NEGATIVE); URINE COLOR YELLOW; URINE GLUCOSE (UA) 3+ (NEGATIVE); URINE KETONE NEGATIVE (NEGATIVE); URINE LEUK ESTERASE 2+ (NEGATIVE); URINE NITRITE NEGATIVE (NEGATIVE); URINE PROTEIN NEGATIVE (NEGATIVE); URINE RBC 15 /uL (0-23.9); URINE UROBILINOGEN 0.2 mg/dL (0.2-1.0); URINE WBC 253 /uL (0-25.8)
--- NOTE | 2020-02-18 12:22 | PN ---
Progress Note (short form) - Note Progress Note: ID CONSULT DICTATED CELLULITIS R LE DIABETES MELLITUS CEPHALEXIN " ALLERGY" ( DIARRHEA ) AWAIT C/S EMPIRIC VANCOMYCIN/ ZOSYN
[2020-02-18 12:24] VITALS: BP 154/94; PULSE 86
[2020-02-18 12:47] LABS: URINE CRYSTALS NON SEEN /hpf
[2020-02-18] MEDS ORDERED: diphenhydrAMINE HCL 25 MG CAPSULE (FP) PO ONE (13:20)
--- NOTE | 2020-02-18 15:24 | PN ---
Teaching Attending Note Name of Resident: Sly Montes ATTENDING PHYSICIAN STATEMENT I saw and evaluated the patient. I reviewed the resident's note and discussed the case with the resident. I agree with the resident's findings and plan as documented. SUBJECTIVE: Examined at bedside. Rash on right lower extremity is blanching and nontender. Given a dose of hydrocortisone cream and Benadryl with no effect. Patient does not have fever, white count, left shift or any other signs of systemic infection. There is no purulence. Will [place] the rash with a marker and discharge on Bactrim DS BID x5 days. Unclear as to whether the etiology of the rash is infectious vs dermatologic. If it is cellulitis, it is not severe enough to require inpatient IV antibiotics in the absence of known abx resistance. Blood cx are highly unlikley to be positive and there is no wound to culture. Patient will follow-up with her primary care doctor for reevaluation and further management. Pt is medically cleared for discharge. OBJECTIVE: Last Vital Signs Temp Pulse Resp BP Pulse Ox 97.9 F 86 16 154/94 100 02/18/20 12:23 02/18/20 12:23 02/18/20 12:23 02/18/20 12:23 02/18/20 12:23 PE: per resident note Labs/Imaging: reviewed ASSESSMENT AND PLAN: Assessment and plan as above.
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
[2020-02-18] MEDS ORDERED: PIPERACILLIN/TAZOB 3.375 GM 3.375 GM in DEXTROSE 5%-WATER - 50 ML IVPB SCH (18:00)
--- NOTE | 2020-02-18 18:40 | CONS ---
DATE OF CONSULTATION: 02/18/2020 INFECTIOUS DISEASE CONSULTATION HISTORY OF PRESENT ILLNESS: The patient is a 64-year-old female, a longstanding insulin dependent diabetic who was evaluated for cellulitis of her right lower extremity. The patient states that she was outdoors approximately 4 days ago and had been bitten by mosquitoes on her right lower extremity. She subsequently developed worsening erythema, warmth, and swelling of the right lower extremity with increased pain. She presented to the emergency room where she was found to have cellulitis of the right lower extremity. She was empirically treated with Zosyn. She denies any associated fever or chills. She has had a history of soft tissue infections in the past. She was hospitalized in February of 2019 with a labial abscess which grew mixed delphine. PAST MEDICAL HISTORY: Positive for insulin-dependent diabetes mellitus, gastroesophageal reflux disease, hypertension, hyperlipidemia, restless leg syndrome, and history of a positive urine culture for ESBL in March 2019. PAST SURGICAL HISTORY: Status post hysterectomy. ALLERGIES: CEPHALEXIN. Patient reports developing diarrhea after receiving CEPHALEXIN this month, not a true allergy. MEDICATIONS: Include: 1. Zosyn. 2. Benadryl. 3. Lovenox. 4. Lipitor. 5. Metoprolol. 6. Altace. 7. Aspirin. SOCIAL HISTORY: Lives at home in the community. Nonsmoker and nondrinker. SYSTEMS REVIEW: Neurologic: No loss of consciousness, seizure activity, or focal weakness. Cardiac: Negative chest pain or palpitations. Respiratory: Negative cough or sputum production. Gastrointestinal: Negative vomiting or diarrhea. Genitourinary: Negative for urinary tract infection. LABORATORY DATA: White count 7.0, hematocrit 40.3, platelets 240. BUN 16, creatinine 0.9. Liver enzymes are normal. Urinalysis showing 53 white cells. COVID-19 PCR pending. PHYSICAL EXAMINATION: General: She is awake and alert. She is not acutely toxic appearing. Vital Signs: Temperature 97.9, blood pressure 143/79, pulse 91 and regular, respirations 17 per minute. HEENT: Sclerae anicteric. Heart: Sounds S1, S2. Lungs: Clear. Abdomen: Soft and nontender. Extremities: Examination of the right tower extremity: There is patchy erythema present over the pretibial aspect of the right lower extremity. The area is warm to touch. There is also a circular area approximately 3 cm in diameter of erythema and induration on the medial aspect of the mid calf. No fluctuance or crepitus. IMPRESSION: 1. Cellulitis of the right lower extremity. 2. Diabetes mellitus. 3. CEPHALEXIN allergy. PLAN: Obtain blood cultures, empiric antibiotic coverage with vancomycin and Zosyn, elevation, and analgesics. Thank you for the kind referral. YEIMI HOUSTON M.D. [id number]
[2020-02-18] MEDS ORDERED: ATORVASTATIN CA 20 MG TABLET (FP) PO SCH (22:00)
[2020-02-19] MEDS ORDERED: VANCOMYCIN 1 GRAM (PRE-DOCKED) 1,000 MG/250 ML BAG IVPB SCH (06:00)
[2020-02-19 08:06] LABS: PARATHYROID HORM INTACT 41 pg/mL (15-65)
== END 2020-02-18 17:57 | disposition home or self-care (01) | DRG 603 ==
LOC: JER 21:56 → JERBED 02-18 02:53 → J6S 02-18 12:03
PROVIDERS: ADMIT Internal Medicine; ATTEND Internal Medicine
DX: L03.115 Cellulitis of right lower limb (principal); I10 Essential (primary) hypertension; E78.5 Hyperlipidemia, unspecified; K21.9 Gastro-esophageal reflux disease without esophagitis; E11.9 Type 2 diabetes mellitus without complications; E83.51 Hypocalcemia; Z79.4 Long term (current) use of insulin
CPT/HCPCS: 36415; 71046-TC-FY; 80053; 81003; 83735; 83970; 84100; 85025; 85610; 85730; 86618; 87040; 93005; 93010; 93971-TC; 99285-25; U0003

== ENCOUNTER 2020-07-26 19:47 | Emergency (ER) | payer OTHER ==
[2020-07-26 20:08] VITALS: TEMP 98.9; BMI 29.0
[2020-07-26] MEDS ORDERED: IBUPROFEN 600 MG TABLET (FP) PO ONE ×2 (21:24→21:30)
[2020-07-26 23:18] VITALS: BP 139/88; PULSE 86
[2020-07-26 23:40] LABS: URINE APPEARANCE CLOUDY; URINE COLOR YELLOW; URINE GLUCOSE (UA) NEGATIVE (NEGATIVE)
[2020-07-26 23:41] LABS: URINE BILIRUBIN NEGATIVE (NEGATIVE); URINE KETONE NEGATIVE (NEGATIVE)
[2020-07-26 23:42] LABS: URINE NITRITE NEGATIVE (NEGATIVE); URINE PROTEIN NEGATIVE (NEGATIVE); URINE UROBILINOGEN 0.2 mg/dL (0.2-1.0)
[2020-07-26 23:49] LABS: EPI CELLS 9 /uL (0-25.1); HYALINE CASTS 10 /uL (0-3.1); URINE BACTERIA 151 /uL (0-1359); URINE LEUK ESTERASE 2+ (NEGATIVE); URINE RBC 27 /uL (0-23.9); URINE WBC 519 /uL (0-25.8)
== END 2020-07-26 23:18 | disposition home or self-care (01) ==
LOC: JER 19:47
DX: M54.9 Dorsalgia, unspecified (principal); R19.7 Diarrhea, unspecified
CPT/HCPCS: 81003; 99284-25